=== PATIENT | female | born 1945 ===

== ENCOUNTER 2020-12-03 09:14 | Outpatient (REF) | payer MEDICARE, OTHER, SELFPAY ==
--- NOTE | ~2020-12-03 | XR_ITS ---
EXAMINATION: XR LUMBOSACRAL SPINE CLINICAL INFORMATION: Back pain with right-sided sciatica. COMPARISON: None TECHNIQUE: Three views of the lumbosacral spine. FINDINGS: Levocurvature of the lumbar spine. The lumbar lordosis is maintained. No acute fracture or subluxation. No loss of vertebral body height. Multilevel loss of intervertebral disc height with anterior endplate osteophytes. Prominent bilateral facet arthropathy at L3 through S1. Atherosclerotic calcifications. XR/XR lumbar spine 2-3V IMPRESSION: Levocurvature of the lumbar spine. Mild multilevel degenerative disc disease. Bilateral facet arthropathy at L3 through S1.
== END 2020-12-03 09:15 | disposition home or self-care (01) ==
LOC: HO.XRAY 09:14
PROVIDERS: PCP Internal Medicine; Visit Provider Internal Medicine Geriatric Medicine
DX: M54.41 Lumbago with sciatica, right side (principal)
CPT/HCPCS: 72100

== ENCOUNTER 2021-07-01 13:03 | Outpatient (REF) | payer MEDICARE, OTHER, SELFPAY ==
--- NOTE | ~2021-07-01 | MM_ITS ---
EXAMINATION: BONE DENSITOMETRY CLINICAL INDICATION: Menopause. COMPARISON: This is the patient's baseline examination. TECHNIQUE: Using a ? DXA System (software version: 13.1) manufactured by [employer], dual-energy x-ray absorptiometry was performed of the lumbar spine and left hip. The images are of good technical quality. Summary results are attached. FINDINGS: AP SPINE L1-L4: BMD 1.026 g/cm2, Z-score 0.5, T-score -1.3, osteopenia. LEFT FEMUR, NECK: BMD 0.890 g/cm2, Z-score 1.0, T-score -1.1, osteopenia. LEFT FEMUR, TOTAL: BMD 0.897 g/cm2, Z-score 1.0, T-score -0.9, normal. IDENTIFIED RISK FACTORS: Early menopause, secondary osteoporosis, anticonvulsants, history of fracture (adult). HISTORY OF FRACTURE: Wrist. MEDICATIONS: Vitamin D. MM/XR DEXA axial skeleton IMPRESSION: 1. DIAGNOSIS: Osteopenia based on the lowest T-score value of -1.3 in the lumbar spine applying World Health Organization criteria. 2. 10-YEAR FRACTURE RISK PREDICTION, FRAX: Major osteoporotic fracture (clinical spine, forearm, hip or shoulder) 9.3%. Hip fracture 1.4%. 3. Treatment Recommendations: NOF guidelines recommend consideration for treatment in postmenopausal women and men age 50 and older presenting with the following: -A hip or vertebral (clinical or morphometric) fracture. -T-score less than or equal to -2.5 at the femoral neck or spine after appropriate evaluation to exclude secondary causes. -Low bone mass at the hip or spine and a 10-year fracture probability by FRAX of greater than or equal to 3% for hip fracture or greater than or equal to 20% for major osteoporotic fracture based on the [place] adapted WHO algorithm. 4. Other Recommendations: All treatment decisions require clinical judgment and consideration of individual patient factors, including patient preferences, comorbidities, previous drug use, risk factors not captured in the FRAX model (e.g. frailty, falls, vitamin D deficiency, increased bone turnover, interval significant decline in bone density) and possible under or overestimation of fracture risk by FRAX. Additional medical evaluation for secondary cause of low bone mineral density may be appropriate. FUTURE SCAN RECOMMENDATION: People with diagnosed cases of osteoporosis or at high risk for fracture should have regular bone mineral density tests. For patients eligible for Medicare, routine testing is allowed once every 2 years. The testing frequency can be increased to one year for patients who have rapidly progressing disease, those who are receiving or discontinuing medical therapy to restore bone mass, or have additional risk factors.
--- NOTE | ~2021-07-01 | MM_ITS ---
EXAMINATION: MM SCREENING DIGITAL BREAST TOMOSYNTHESIS, BILATERAL CLINICAL INFORMATION: Screening. Asymptomatic. Prior outside mammography from [place] no longer available. Family history breast cancer, mother. The lifetime risk of breast cancer based on the Tyrer-Cuzick Model is 5%. COMPARISON: None (current study represents initial baseline exam). TECHNIQUE: Digital breast tomosynthesis is performed in both the craniocaudal and mediolateral oblique views along with computer-aided detection (CAD). Synthesized 2D images are generated from the tomosynthesis. Additional left MLO view is provided. FINDINGS: There are scattered areas of fibroglandular density (ACR BI-RADS breast composition Category b). There are no significant masses, abnormal calcifications, or other abnormalities. The axilla and skin contours are normal. MM/MM tomosynthesis screening BI IMPRESSION: No mammographic evidence of malignancy. ASSESSMENT: BI-RADS 1: Negative RECOMMENDATION: Routine annual mammography screening. This patient's information was entered into a reminder system with a target due date for their next mammogram.
== END 2021-07-01 13:04 | disposition home or self-care (01) ==
LOC: HO.MAMMO 13:03
PROVIDERS: PCP Internal Medicine Geriatric Medicine; Visit Provider Internal Medicine Geriatric Medicine
DX: Z12.31 Encounter for screening mammogram for malignant neoplasm of breast (principal); Z13.820 Encounter for screening for osteoporosis; Z78.0 Asymptomatic menopausal state; M85.80 Other specified disorders of bone density and structure, unspecified site
CPT/HCPCS: 77063; 77067; 77080

== ENCOUNTER → 2021-09-29 09:51 | Outpatient (BNVA) | payer MEDICARE, OTHER, SELFPAY | PROVIDERS: PCP Internal Medicine Geriatric Medicine; Visit Provider Anesthesiology | DX: M47.816 Spondylosis without myelopathy or radiculopathy, lumbar region (principal); G89.4 Chronic pain syndrome; M54.50 Low back pain, unspecified | CPT/HCPCS: 99202 ==

== ENCOUNTER 2021-11-18 08:57 | Outpatient (REF) | payer MEDICARE, SELFPAY ==
--- NOTE | ~2021-11-18 | MR_ITS ---
EXAMINATION: MR LUMBAR SPINE WITHOUT CONTRAST CLINICAL INFORMATION: Chronic low back pain. COMPARISON: Lumbar spine radiograph 12/03/2020. TECHNIQUE: MRI of the lumbar spine was obtained using routine sequences without contrast. FINDINGS: There is slight grade 1 anterolisthesis of L3 on L4 and L4 on L5 that appears to be related to advanced facet degenerative changes at these levels. Vertebral body heights are preserved. No acute bone marrow signal changes. There is slight loss of intervertebral disc height and T2 signal intensity at multiple levels related to disc degeneration. The tip of the conus medullaris is located at L1. No mass effect on the conus. Distal cord signal intensity is unremarkable. At L1-L2 there is a slightly bulging disc. No canal stenosis. No mass effect on the traversing or foraminal nerve roots. At L2-L3 there is a slightly bulging disc. No canal stenosis. No mass effect on the traversing or foraminal nerve roots. At L3-L4 there is a pseudodisc bulge. Advanced facet degenerative change. Mild canal stenosis. Asymmetric narrowing of the left subarticular zone causes displacement and possible compression of left traversing L4 nerve roots. No foraminal nerve root compression. At L4-L5 there is a pseudodisc bulge. Advanced facet degenerative change. Mild canal stenosis. Subarticular zone narrowing causes displacement and possible compression of the left traversing L5 nerve roots. No foraminal nerve root compression. At L5-S1 there is a slightly bulging disc. Advanced facet degenerative change. No canal stenosis. No mass effect on the traversing or foraminal nerve roots. Limited visualization of the retroperitoneal anatomy reveals no abnormal finding. Psoas and paraspinal muscle groups are symmetric. MR/MR lumbar spine wo con IMPRESSION: There is slight grade 1 anterolisthesis of L3 on L4 and L4 on L5 related to advanced facet degenerative changes at each of these 2 levels. There is also advanced degenerative arthrosis of the articular facet joints at L5-S1. Mild canal stenosis at L4-L5 and L5-S1. There is subtle displacement and possible compression of left traversing L4 and L5 nerve roots related to degenerative changes at L3-L4 and L4-L5 respectively. Otherwise no neuroforaminal compromise.
== END 2021-11-18 08:58 | disposition home or self-care (01) ==
LOC: HO.MRI 08:57
PROVIDERS: Visit Provider Anesthesiology
DX: M47.816 Spondylosis without myelopathy or radiculopathy, lumbar region (principal); G89.4 Chronic pain syndrome
CPT/HCPCS: 72148

== ENCOUNTER 2022-12-07 10:22 | Outpatient (REF) | payer MEDICARE, SELFPAY ==
[2022-12-07 11:39] LABS: MANUAL DIFF FLAG NO
[2022-12-07 12:17] LABS: Basophils Percent Auto 0.4 % (0-2); Eosinophils Absolute Auto 0.2 X10*3/uL (0.0-0.4); Eosinophils Percent Auto 2.5 % (0-4); Hematocrit 45.5 % (37.0-47.0); Hemoglobin 16.1 g/dl (12.0-16.0); Imm Gran Abs Auto 0.03 X10*3/uL (0.00-0.03); Imm Gran Pct Auto 0.4 % (0.0-0.4); Lymphocytes Absolute Auto 2.8 X10*3/uL (1.2-4.9); Lymphocytes Percent Auto 32.9 % (20-40); Mean Corpuscular HGB Conc 35.4 g/dl (31.0-35.0); Mean Corpuscular Hemoglobin 30.2 pg (27.0-33.0); Mean Corpuscular Volume 85.4 fL (80.0-98.0); Mean Platelet Volume 12.4 fL (9.4-12.3); Monocytes Absolute Auto 0.6 X10*3/uL (0.1-1.2); Monocytes Percent Auto 6.8 % (2-11); Neutrophils Absolute Auto 4.8 x10*3/uL (2.0-8.3); Platelet Count 243 X10*3/uL (160-400); Red Blood Count 5.33 X10*6/uL (4.20-5.50); Red Cell Distribution Width 12.2 % (11.0-16.0); White Blood Count 8.4 X10*3/uL (4.8-10.8)
[2022-12-07 13:08] LABS: Anion Gap 18 (12-20); Blood Urea Nitrogen 19 mg/dL (9-16); Calcium 10.5 mg/dL (8.4-10.2); Carbon Dioxide 25 mmol/L (22-29); Chloride 103 mmol/L (96-108); Estimated Glomerular Filt Rate > 60; Glucose Random 113 mg/dL (60-115); Potassium 2.8 mmol/L (3.3-5.1); Sodium 143 mmol/L (135-145)
== END 2022-12-07 10:23 | disposition home or self-care (01) ==
LOC: HO.HHCL 10:22
PROVIDERS: Visit Provider Internal Medicine Geriatric Medicine
DX: I10 Essential (primary) hypertension (principal); M85.80 Other specified disorders of bone density and structure, unspecified site; Z79.1 Long term (current) use of non-steroidal anti-inflammatories (NSAID)
CPT/HCPCS: 36415; 80048; 85025

== ENCOUNTER 2022-12-18 12:03 | Outpatient (REF) | payer MEDICARE, SELFPAY | END 2022-12-18 12:04 | disposition home or self-care (01) | LOC: HO.HHCL 12:03 | PROVIDERS: Visit Provider Internal Medicine Geriatric Medicine | DX: I10 Essential (primary) hypertension (principal) | CPT/HCPCS: 36415; 80048 ==

== ENCOUNTER 2023-02-23 09:40 | Outpatient (REF) | payer MEDICARE, MEDICAID, SELFPAY ==
--- NOTE | ~2023-02-23 | XR_ITS ---
EXAMINATION: XR HIP, RIGHT CLINICAL INFORMATION: Chronic pain. COMPARISON: Radiograph pelvis and bilateral hips 03/04/2022. TECHNIQUE: Two views of the right hip. FINDINGS: No acute fracture or subluxation. Redemonstration of severe osteoarthritis involving the right hip with pronounced joint space narrowing, subcortical sclerosis, subchondral cystic changes and marginal osteophytes, similar to slightly progressed compared to 03/04/2022. No significant soft tissue abnormality. XR/XR hip RT min 2V IMPRESSION: 1. No acute fracture or subluxation. 2. Severe right hip osteoarthritis, similar to slightly progressed compared to 03/04/2022.
--- NOTE | ~2023-02-23 | XR_ITS ---
EXAMINATION: XR KNEE, LEFT CLINICAL INFORMATION: Chronic pain. COMPARISON: None available. TECHNIQUE: Four views of the left knee. FINDINGS: No evidence of acute fracture or subluxation. Moderate joint space narrowing of the medial and patellofemoral compartments with small marginal osteophytes. No osseous erosions. No chondrocalcinosis. No joint effusion. Scattered vascular calcifications. XR/XR knee LT 4V IMPRESSION: No acute fracture or malalignment. Moderate degenerative osteoarthritis of the medial and patellofemoral compartments.
[2023-02-23 11:50] LABS: Anion Gap 13 (12-20); Blood Urea Nitrogen 20 mg/dL (9-16); Calcium 10.4 mg/dL (8.4-10.2); Carbon Dioxide 25 mmol/L (22-29); Chloride 107 mmol/L (96-108); Estimated Glomerular Filt Rate > 60; Glucose Random 83 mg/dL (60-115); Potassium 3.7 mmol/L (3.3-5.1); Sodium 141 mmol/L (135-145)
== END 2023-02-23 09:41 | disposition home or self-care (01) ==
LOC: HO.HHCL 09:40
PROVIDERS: Visit Provider Internal Medicine Geriatric Medicine
DX: M25.551 Pain in right hip (principal); M25.562 Pain in left knee; G89.29 Other chronic pain; E87.6 Hypokalemia
CPT/HCPCS: 36415; 73502; 73564; 80048

== ENCOUNTER 2023-03-10 07:09 | Outpatient (REF) | payer MEDICARE, SELFPAY | END 2023-03-10 07:10 | disposition home or self-care (01) | LOC: HO.HOSX 07:09 | PROVIDERS: Visit Provider Orthopaedic Surgery | DX: M16.11 Unilateral primary osteoarthritis, right hip (principal); M25.551 Pain in right hip | CPT/HCPCS: 72170; 99202 ==

== ENCOUNTER 2023-03-10 09:32 | Outpatient (AMB) | payer MEDICARE, SELFPAY ==
--- NOTE | 2023-03-10 10:23 | A.OFFVIS_ITS ---
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 Patient reports ongoing pain for 3 years. Hx of injections/ PT with no relief. Hx of taking celebrex, naproxen, and Tylenol with no relief. The patient describes her pain as sharp and severe in nature, 10/10. Most of her pain is located within her right groin and thigh. She does walk with a rolling walker because of her pain. The patient has difficulty walking even short distances because of her pain. At this point her right hip pain is interfering with her activities of daily living and her ability to sleep well through the night. Allergies No Known Allergies Allergy (Verified 03/10/23 10:33) Medication List - Last Reconciled 03/10/23 by Kiel Ruiz MD amlodipine 10 mg PO DAILY chlorthalidone 50 mg PO DAILY clonidine HCl 0.2 mg PO BEDTIME diclofenac sodium 1% 2 grams topical BID levothyroxine 75 mcg PO QAM lidocaine 5% topical losartan 100 mg PO BEDTIME ofloxacin 0.3% 10 drps otic (ears) BID omeprazole 20 mg PO DAILY rosuvastatin 10 mg PO BEDTIME PFSH Medical History Hypothyroidism Hypertension Perforation of left tympanic membrane Physical Exam Const Other: Well-nourished well-developed very friendly female awake alert and oriented x3 in no acute distress Extrem Other: Bilateral lower extremity examination shows good capillary refill, no skin lesions noted, normal sensation light touch Right hip examination shows decreased range of motion when compared to her left hip, pain with range of motion, no tenderness over her bursa Results Reviewed Results Reviewed: X-rays of the patient's right hip show end-stage degenerative joint disease with grade 4 [id number] arthritis, subchondral sclerosis, osteophyte formation, no acute bony abnormalities Assessment & Plan Assessment & Plan (1) Arthritis of right hip: Code(s): M16.11 - Unilateral primary osteoarthritis, right hip Plan Ms. Olmos presents with progressively worsening right hip pain due to end-stage degenerative joint disease. I had a lengthy discussion with the patient regarding the treatment options. At this point she has failed continued non operative treatments. The risks and benefits of right total hip replacement surgery were discussed at length with the patient. The patient wishes to proceed with surgery. She will contact my office to pick a surgery date. I will see her back 1 week prior to her surgery to answer any final questions that she might have. Feel free to call me at any time should questions regarding her orthopedic management arise. Thank you very much for asking me to see this very friendly patient. I spent 22 minutes in reviewing the patient's records and imaging studies, seeing the patient and documenting in the medical record. Orders: Orders XR pelvis 1-2V Today M25.551 - Pain in right hip Coding Level of Care Code New Pt Level 2 (52771) Diagnoses Arthritis of right hip M16.11
== END 2023-03-10 10:46 | disposition home or self-care (01) ==
PROVIDERS: PCP Internal Medicine Geriatric Medicine; Visit Provider Orthopaedic Surgery
DX: M16.11 Unilateral primary osteoarthritis, right hip (principal)
CPT/HCPCS: 99202

== ENCOUNTER → 2023-05-19 08:56 | Outpatient (BNVA) | payer MEDICARE, SELFPAY | PROVIDERS: PCP Internal Medicine Geriatric Medicine; Visit Provider Orthopaedic Surgery ==

== ENCOUNTER 2023-05-25 09:05 | Outpatient (REF) | payer OTHER, SELFPAY ==
[2023-05-25 11:33] LABS: Basophils Percent Auto 0.6 % (0-2); Eosinophils Absolute Auto 0.1 X10*3/uL (0.0-0.4); Eosinophils Percent Auto 1.6 % (0-4); Hematocrit 40.5 % (37.0-47.0); Imm Gran Abs Auto 0.04 X10*3/uL (0.00-0.03); Imm Gran Pct Auto 0.6 % (0.0-0.4); Lymphocytes Absolute Auto 2.5 X10*3/uL (1.2-4.9); Lymphocytes Percent Auto 35.6 % (20-40); MANUAL DIFF FLAG SCAN; Mean Corpuscular HGB Conc 34.6 g/dl (31.0-35.0); Mean Corpuscular Hemoglobin 30.2 pg (27.0-33.0); Mean Corpuscular Volume 87.3 fL (80.0-98.0); Monocytes Absolute Auto 0.4 X10*3/uL (0.1-1.2); Monocytes Percent Auto 6.3 % (2-11); Neutrophils Absolute Auto 3.8 x10*3/uL (2.0-8.3); Neutrophils Percent Auto 55.3 % (45-73); PLT CLUMP 1; Red Blood Count 4.64 X10*6/uL (4.20-5.50); Red Cell Distribution Width 12.5 % (11.0-16.0); SCAN SMEAR FLAG 1
[2023-05-25 11:41] LABS: Anion Gap 12 (12-20); Blood Urea Nitrogen 20 mg/dL (9-16); Calcium 10.1 mg/dL (8.4-10.2); Carbon Dioxide 27 mmol/L (22-29); Chloride 110 mmol/L (96-108); Estimated Glomerular Filt Rate 49; Glucose Random 90 mg/dL (60-115); Sodium 145 mmol/L (135-145)
[2023-05-25 11:45] LABS: Estimated Average Glucose 100 mg/dL; Hemoglobin A1c % 5.1 % (<6.0)
[2023-05-25 11:57] LABS: White Blood Count 6.9 X10*3/uL (4.8-10.8)
[2023-05-25 11:58] LABS: Platelet Count 199 X10*3/uL (160-400); SLIDE REVIEW VERIFIED
== END 2023-05-25 09:06 | disposition home or self-care (01) ==
LOC: HO.HHCL 09:05
PROVIDERS: Visit Provider Internal Medicine Geriatric Medicine
DX: Z01.818 Encounter for other preprocedural examination (principal)
CPT/HCPCS: 36415; 80048; 83036; 85025

== ENCOUNTER 2023-05-25 11:46 | Outpatient (AMB) | payer OTHER, SELFPAY ==
--- NOTE | 2023-05-25 11:49 | MHC.OFFVIS ---
Intake Vital Signs 05/25/23 11:55 Height 5 ft 2 in Weight 140 lb BMI 25.6 Intake Visit Reasons: Preop RT MALIA 06/21/23 DR Intake Note: Ya is a 77 year old female who presents with complaints of progressively worsening right hip pain. Patient reports ongoing pain for 3 years. Hx of injections/ PT with no relief. Hx of taking celebrex, naproxen, and Tylenol with no relief. The patient describes her pain as sharp and severe in nature, 10/10. Most of her pain is located within her right groin and thigh. She does walk with a rolling walker because of her pain. The patient has difficulty walking even short distances because of her pain. At this point her right hip pain is interfering with her activities of daily living and her ability to sleep well through the night. Allergies No Known Allergies Allergy (Verified 05/25/23 11:53) Medication List - Last Reconciled 05/25/23 by Kiel Ruiz MD amlodipine 10 mg PO DAILY chlorthalidone 50 mg PO DAILY clonidine HCl 0.2 mg PO BEDTIME diclofenac sodium 1% 2 grams topical BID levothyroxine 75 mcg PO QAM lidocaine 5% topical losartan 100 mg PO BEDTIME ofloxacin 0.3% 10 drps otic (ears) BID omeprazole 20 mg PO DAILY rosuvastatin 10 mg PO BEDTIME PFSH Medical History Hypothyroidism Hypertension Perforation of left tympanic membrane Social History Patient Tobacco Use Status: Never used Tobacco Current occupational status: retired Physical Exam Vital Signs: BMI result Body Mass Index 25.6 Const Other: Well-nourished well-developed very friendly female awake alert and oriented x3 in no acute distress Extrem Other: Bilateral lower extremity examination shows good capillary refill, no skin lesions noted, normal sensation light touch Right hip examination shows decreased range of motion when compared to her left hip, pain with range of motion, no tenderness over her bursa Results Reviewed Results Reviewed: X-rays of the patient's right hip show end-stage degenerative joint disease with grade 4 [id number] arthritis, subchondral sclerosis, osteophyte formation, no acute bony abnormalities Assessment & Plan Assessment & Plan (1) Arthritis of right hip: Code(s): M16.11 - Unilateral primary osteoarthritis, right hip Plan Ms. Olmos presents with progressively worsening right hip pain due to end-stage degenerative joint disease. I had a lengthy discussion with the patient regarding the treatment options. At this point she has failed continued non operative treatments. The risks and benefits of right total hip replacement surgery were discussed at length with the patient. The patient wishes to proceed with surgery. human resources services specialist will be consulted following her surgery for home physical therapy and nursing. The patient will follow-up as instructed. Feel free to call me at any time should questions regarding her orthopedic management arise. I spent 22 minutes in reviewing the patient's records and imaging studies, seeing the patient and documenting in the medical record. Coding Level of Care Code Est Pt Level 2 (24081) Diagnoses Arthritis of right hip M16.11
[2023-05-25 11:55] VITALS: BMI 25.6
== END 2023-05-25 12:10 | disposition home or self-care (01) ==
PROVIDERS: PCP Internal Medicine Geriatric Medicine; Visit Provider Orthopaedic Surgery
DX: M16.11 Unilateral primary osteoarthritis, right hip (principal)
CPT/HCPCS: 99024

== ENCOUNTER 2023-06-15 12:54 | Outpatient (AMB) | payer OTHER, SELFPAY ==
[2023-06-15 13:58] VITALS: BP 130/74; PULSE 68; BMI 26.1
--- NOTE | 2023-06-15 13:58 | MHC.OFFVIS ---
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 clearance 06/20 Supervisor Liquefaction Required: Yes Supervisor Liquefaction Language: Rubber Stamp Die Inspector Name: germán mccarthy [id number] Allergies No Known Allergies Allergy (Verified 06/15/23 14:01) Medication List - Last Reconciled 06/15/23 by Chen Abdi NP-C acetaminophen 500 mg PO Q6H PRN amlodipine 10 mg PO DAILY calcium carbonate-vitamin D3 600 mg-10 mcg (400 unit) 1 tab PO BID clonidine HCl 0.2 mg PO BEDTIME diclofenac sodium 1% 2 grams topical BID hydrochlorothiazide 25 mg PO DAILY levothyroxine 75 mcg PO QAM lidocaine 5% topical BID PRN losartan 100 mg PO BEDTIME meloxicam 15 mg PO DAILY ofloxacin 0.3% 10 drps otic (ears) BID PRN omeprazole 20 mg PO DAILY rosuvastatin 10 mg PO BEDTIME 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 Today she reports that she has no known history of heart disease. She admits to being mostly sedentary and is unable to walk much due to her right hip discomfort. She uses a walker and a cane. Unable to achieve 4 Mets workload due to physical condition. She has some mild shortness of breath if she over exerts. No chest discomfort at rest or with activity. No heart palpitations, lightheadedness, presyncope, syncope, falls. No PND, orthopnea. Her ankles do swell in the evenings. No history of smoking or alcohol use. No known family history of heart disease. Compliant with her medications. Has surgery planned for 06/21/2023. [facility] Medical History DJD (degenerative joint disease) Back pain Arthritis GERD (gastroesophageal reflux disease) Hypothyroidism Hypertension Perforation of left tympanic membrane Surgical History History of bladder surgery (~2016) Hx of hand surgery Social History Household Members Other:: daughter-Salma Are you a primary nonfarm animal caretaker to a significant other at home: No Do you presently have visiting nurse or other home services: No Patient Tobacco Use Status: Never used Tobacco Current occupational status: retired Review of Systems Const All systems reviewed & are unremarkable except as noted in HPI and below ENT Denies dizziness Card Denies chest pain, Denies chest pain at rest, Denies chest pain with activity, Denies rapid heart rate, Denies pedal edema, Denies edema, Denies leg edema, Denies lightheadedness, Denies palpitations, Denies dyspnea, Denies dyspnea on exertion and Denies orthopnea Resp Denies cough, Denies dyspnea and Denies dyspnea on exertion GI Denies hematochezia and Denies change in stool character Musc Details: hip pain Reports abnormal gait, Reports limited range of motion, Denies muscle cramps, Denies muscle weakness, Denies numbness, Denies radiating pain into limb, Denies stiffness and Denies tingling Neuro Reports abnormal gait, Denies dizziness, Denies numbness and Denies tingling Endo Denies palpitations Physical Exam Vital Signs: Last Vital Signs Pulse 68 06/15/23 13:58 BP 130/74 06/15/23 13:58 BMI result Body Mass Index 26.1 Const Other: ambulates slowly with walker General: cooperative, healthy appearing, comfortable and no acute distress Orientation/consciousness: patient oriented x3 Neck Neck: Yes normal visual inspection Resp Effort & Inspection: normal respiratory effort Auscultation: clear to auscultation bilaterally, no crackles, no rales, no rhonchi and no wheezes Cardio Jugular venous distension: no JVD Rate: regular rate Rhythm: regular rhythm Heart sounds: S1 normal heart sound present, S2 normal heart sound present, no murmurs and no rubs Neuro General: patient oriented x3 Extrem General: Yes normal to inspection Psych Appearance: grossly normal Mental Status: mental status grossly normal Speech and movement: Normal speech and movement present Office Procedures EKG Details: Today, read by me, sinus rhythm with first-degree AV block, PVC, right axis, can not exclude inferior infarct and possible anterior infarct, rate 68, QTC 444 millisecond [id number], Complete Assessment & Plan Assessment & Plan (1) Abnormal EKG: Code(s): R94.31 - Abnormal electrocardiogram [ECG] [EKG] Plan: EKG done today shows sinus rhythm with first-degree AV block, PVC, right axis deviation, can not exclude prior inferior and anterior infarcts, poor R-wave progression, low-voltage QRS, rate 68. Patient denies any known cardiac history. She has some mild shortness of breath with activity but is mostly sedentary at this point. She is unable to achieve 4 Mets workload due to right hip pain. Cardiac risks of age, hypertension, hyperlipidemia. She plans to undergo a total hip replacement which is scheduled on 06/21/2023. Will arrange for an echocardiogram to assess for structural heart disease, EF, wall motion. Will check a pharmacological nuclear stress test to evaluate for any ischemia. She will not be able to walk on a treadmill as she uses a walker- plan to complete stress test using 1 day protocol due to time constraints with her upcoming surgery. Plan to call her with test results. Preop clearance to be completed once test results are available. Cardiology follow-up 3 months, sooner if needed. (2) Shortness of breath: Code(s): R06.02 - Shortness of breath Plan: As above (3) Preop cardiovascular exam: Code(s): Z01.810 - Encounter for preprocedural cardiovascular examination Plan: As above. Addendum will be made to this note once test results available. (4) Arthritis of right hip: Code(s): M16.11 - Unilateral primary osteoarthritis, right hip Plan: As above Plan Time spent on chart review, documentation, interview and assessment Orders: Orders CA lexiscan stress w jose Today M16.11 - Unilateral primary osteoarthritis, right hip, R06.02 - Shortness of breath, R94.31 - Abnormal electrocardiogram [ECG] [EKG], Z01.810 - Encounter for preprocedural cardiovascular examination NM cardiolite stress test Today M16.11 - Unilateral primary osteoarthritis, right hip, R06.02 - Shortness of breath, R94.31 - Abnormal electrocardiogram [ECG] [EKG], Z01.810 - Encounter for preprocedural cardiovascular examination CA echo transthoracic complete Today M16.11 - Unilateral primary osteoarthritis, right hip, R06.02 - Shortness of breath, R94.31 - Abnormal electrocardiogram [ECG] [EKG], Z01.810 - Encounter for preprocedural cardiovascular examination Coding Level of Care Code New Pt Level 4 (74033) Diagnoses Abnormal EKG R94.31 Shortness of breath R06.02 Preop cardiovascular exam Z01.810 Arthritis of right hip M16.11 CPT Codes EKG - CPT: [id number], Complete ([id number]) Time Spent (min) 28
== END 2023-06-15 14:40 | disposition home or self-care (01) ==
PROVIDERS: PCP Internal Medicine Geriatric Medicine; Visit Provider Nurse Practitioner Family
DX: R94.31 Abnormal electrocardiogram [ECG] [EKG] (principal); R06.02 Shortness of breath; Z01.810 Encounter for preprocedural cardiovascular examination; M16.11 Unilateral primary osteoarthritis, right hip
CPT/HCPCS: 93010; 99204

== ENCOUNTER → 2023-06-15 12:54 | Outpatient (BNVA) | payer OTHER, SELFPAY | PROVIDERS: PCP Internal Medicine Geriatric Medicine; Visit Provider Nurse Practitioner Family | DX: Z01.810 Encounter for preprocedural cardiovascular examination (principal); R94.31 Abnormal electrocardiogram [ECG] [EKG]; R06.02 Shortness of breath; M16.11 Unilateral primary osteoarthritis, right hip | CPT/HCPCS: 93005; 99202 ==

== ENCOUNTER → 2023-06-16 14:20 | Outpatient (REF) | payer OTHER, SELFPAY ==
--- NOTE | 2023-06-16 14:23 | CA_ITS ---
Transthoracic Echocardiogram Patient (Last, First, Middle): Ya Olmos, Gender: Female Date of : 1945 Age: 77 Procedure Date: 06/16/2023 Procedure Type: Transthoracic Echocardiogram Location: OP Height: 154.94 cm Weight: 63.5 kg BSA: 1.62 m2 Heart Rate: bpm BP: 140 / 82 mmHg Data Architect Manager: TO Referring MD: Ish Warren MD Document Examiner: Seth Montana MD Symptoms: R94.31 ABNORMAL EKG HYPERTENSION I10 Study Quality: Fair ECG Rhythm: Sinus Conclusions: - 1. Normal LV ejection fraction 60 65% with impaired relaxation filling pattern 2. Normal cardiac valvular Doppler 3. Mildly dilated ascending aorta at 3.8 cm 4. No gross pericardial effusion Findings Procedure Information Contrast agent, definity, is being given per protocol without apparent complications. Left Ventricle Normal left ventricular size, thickness, and systolic function. The visually estimated ejection fraction is between 60-65%. Spectral Doppler is indicative of an impaired relaxation filling pattern. E/E prime ratio is between 8 and 15 consistent with indeterminate filling pressures. Right Ventricle Normal right ventricular cavity size and systolic function. Atria Both atria are normal in size. There is lipomatous hypertrophy of the interatrial septum. There is no evidence of interatrial shunt. Aortic Valve There is mild calcification of the aortic valve. There is no aortic valve stenosis. There is no aortic valve regurgitation. Mitral Valve Likely normal mitral valve structure and function. There is trace mitral valve regurgitation. There is no mitral valve stenosis. Pulmonic Valve The pulmonic valve was not well visualized. Tricuspid Valve Normal tricuspid valve structure. Tricuspid regurgitation envelope is inadequate for calculation of right ventricular systolic pressure. Normal right atrial pressure. Great Vessels The pulmonary artery was not well visualized. There is mild dilatation of the ascending aorta measuring 3.80 cm. Venous The inferior vena cava is normal in size and collapses greater than 50% with inspiration. Pericardium/Pleural There is no evidence of pericardial effusion. Prior Study Comparison No prior study available for comparison. Measurements 2D Linear Measurements IVSd: 1.00 0.6-0.9/0.6-1.0 cm LVIDd: 4.40 3.9-5.3/4.2-5.9 cm LVIDd Index: 2.72 2.4-3.2/2.2-3.1 cm/m2 LVIDs: 3.11 2.0-3.6 cm LVPWd: 0.90 0.7-1.1 cm LA Diam: 2.80 2.7-3.8/3.0-4.0 cm LAIDs Index: 1.73 1.5-2.3 cm/m2 LV Mass: 170.59 67-162/88-224 g LV Mass Index: 105.30 43-95/49-115 g/m2 LVOT Diam: 2.10 3.0+(-)1.3 cm 2D Systolic Function EF 4C: 58.50 >55% EF 2C: 59.00 >55% EF BiP: 60.60 >55% Mitral Valve MV Pk E: 0.62 MV PK A: 0.90 MV Decel Time: 206.00 E/A: 0.70 E'Lateral: 8.16 E'Medial: 4.79 E/E' Med: 12.90 E/E' Lat: 7.60 PHT: 60.00 MVA PHT: 3.67 Decel [place]: 2.99 Aortic Valve AoV Pk Kevin: 1.36 AoV Mn Kevin: 0.90 AoV VTI: 0.26 AoV Pk Grad: 7.00 Aov Mn Grad: 4.00 CHARISSE Cont.VTI: 2.89 LVOT LVOT Pk Kevin: 1.17 LVOT Mn Kevin: 0.73 LVOT VTI: 0.22 LVOT Pk Grad: 5.00 LVOT Mn Grad: 3.00 LVOT Diam: 2.10 LVOT Area: 3.46 Diastolic Function MV Pk E: 0.62 MV Pk A: 0.90 E/A: 0.70 E'Medial: 4.79 E/E' Med: 12.90 E' Laterial: 8.16 E/E' Lat: 7.60 Right Ventricle TAPSE (mm): 19.40 TVS' Kevin: 11.50 Great Vessels Aorta Sinus of Valsalva: 3.61 2.0-3.[address] [place]: 2.63 1.7-3.4 cm Ao Asc: 3.80 2.1-3.4 cm Ao Arch: 2.90 Updated in Other Vendor System with Status of Final Seth Montana MD electronically signed on 06/17/2023 12:50:00 PM with status of Final
== END ==
LOC: HO.CARD 14:20
PROVIDERS: PCP Internal Medicine Geriatric Medicine; Visit Provider Internal Medicine Geriatric Medicine
DX: Z01.810 Encounter for preprocedural cardiovascular examination (principal); R06.02 Shortness of breath; R94.31 Abnormal electrocardiogram [ECG] [EKG]
CPT/HCPCS: 93306; Q9957

== ENCOUNTER → 2023-06-16 14:23 | Outpatient (BNV) | payer OTHER, SELFPAY | PROVIDERS: PCP Internal Medicine Geriatric Medicine; Visit Provider Internal Medicine Cardiovascular Disease | DX: R94.31 Abnormal electrocardiogram [ECG] [EKG] (principal) | CPT/HCPCS: 93306 ==

== ENCOUNTER → 2023-06-18 07:26 | Outpatient (REF) | payer OTHER, SELFPAY ==
--- NOTE | ~2023-06-18 | NM_ITS ---
Myocardial perfusion study Indication: Preoperative cardiovascular stratification for abnormal EKG Technique: The patient was brought in for a Lexiscan perfusion study on 06/18/2023. Patient performed low-level exercise and was injected 0.4 mg of Lexiscan intravenously. Within a minute of injection, 30 mCi of sestamibi was given intravenously. Images were obtained using the SPECT gamma camera interlaced with the gating device. Images were obtained in supine position. Resting perfusion study was performed on 06/18/2023. Patient was administered 10 mCi of sestamibi intravenously at rest. Images were then obtained in supine position. Images obtained with and without CT attenuation. Total DLP 126 mGy-cm. Images were processed with the software and compared side to side in short axis, horizontal long axis and vertical long axis views. Findings: Both stress as well as rest images was somewhat limited due to arms down position as well as supine diaphragmatic uptake interfering with inferior wall uptake The stress perfusion study showed non attenuated images show mildly reduced uptake in the apex and predominantly in the distal lateral wall of the LV myocardium. Remainder of the LV myocardium is normally perfused. Attenuation corrected images show mildly reduced uptake in the apex of the LV myocardium. The gated study shows normal LV systolic function with calculated LVEF of 63%. LV cavity is normal in size. The gated study shows normal systolic wall thickening and contraction of segments. Resting study shows no change in perfusion pattern compared to stress perfusion study. Gating at rest reveals normal systolic wall motion with ejection fraction at 65%. The findings are consistent with no clear reversible defect suggestive of ischemia. Apical defect most likely attenuation artifact.. NM/NM cardiolite stress test Impression: 1. Myocardial perfusion imaging study shows likely normal myocardial perfusion 2. Gated LVEF is 63% 3. Transient ischemic dilatation not present EKG is nondiagnostic for ischemia
--- NOTE | 2023-06-18 07:29 | CA_ITS ---
Acquisition Time: 2023-06-18 08:46:29 Total Exercise Time: 00:02:00 Test Indications: Abnormal ECG Medications: AMLODIPINE CLONIDINE HCTZ LEVOTHYROXINE LOSARTAN MELOXICAM OMEPRAZALE ROSUVASTATIN Protocol: LEXISCAN Max HR: 094 BPM 66% of Pred: 142 BPM Max BP: 122/064 mmHG Max Work Load: 1.0 METS Pharmacological stress test with Lexiscan injection, while sitting and kickiing her legs, without anginal symptoms, with isolated PVCs, with normotensive response to injection, with nondiagnostic EKG for ischemia. In recovery she was treated with Aminophytline 75mg IVP to reverse Lexiscan. Nuclear images pending. Test reviewed with Dr Montana. Referred By: Chen Abdi Overread By: CHEN ABDI
== END ==
LOC: HO.CARD 07:26
PROVIDERS: PCP Internal Medicine Geriatric Medicine; Visit Provider Nurse Practitioner Family
DX: Z01.810 Encounter for preprocedural cardiovascular examination (principal); R06.02 Shortness of breath; R94.31 Abnormal electrocardiogram [ECG] [EKG]; M16.11 Unilateral primary osteoarthritis, right hip
CPT/HCPCS: 78452; 93017; A9500; J0280; J2785

== ENCOUNTER → 2023-06-18 07:29 | Outpatient (BNV) | payer OTHER, SELFPAY | PROVIDERS: PCP Internal Medicine Geriatric Medicine; Visit Provider Nurse Practitioner Family | DX: Z01.810 Encounter for preprocedural cardiovascular examination (principal); I49.3 Ventricular premature depolarization | CPT/HCPCS: 78452; 93016; 93018 ==

== ENCOUNTER 2023-06-21 07:34 | Inpatient (IN) | payer OTHER, SELFPAY ==
[2023-06-15 11:44] VITALS: BP 130/78; PULSE 75; RESP 16; O2SAT 98; BMI 28.7
--- NOTE | 2023-06-15 12:04 | P.CONAN_ITS ---
Documented by User: Velma Waite NP 06/18/23 13:21 HPI - Anesthesia Eval Consult details Narrative: 77yo F for Right Hip Total Replacement, 06/21/23 Referred to cardiology by PCP d/t abnormal EKG No recent illness No CP or SOB within limits of pain GERD. prn ppi only. rare symptoms PMFSH Active Problems Active Problems: All Active Problems (Updated 06/14/23 @ 16:13 by Feli Chandler RN) Arthritis of right hip (Acute) Right hip pain (Acute) Chronic pain syndrome (Acute) Low back pain (Acute) Spondylosis of lumbar spine (Acute) Past Medical History Medical History DJD (degenerative joint disease) Back pain Arthritis GERD (gastroesophageal reflux disease) Hypothyroidism Hypertension Perforation of left tympanic membrane Family History Family history of problems with anesthesia: No Surgical History Surgical History History of bladder surgery (~2015) Hx of hand surgery History of Problems with Anesthesia: No Social History Social History Household Members Other:: daughter-Slama Are you a primary medication care manager to a significant other at home: No Do you presently have visiting nurse or other home services: No Patient Tobacco Use Status: Never used Tobacco Use of substances other than those prescribed or required for medical reasons: No Are you DNR?: No Advance Directives: No Advance Directives Information Provided: Yes Advance Directives on File: No Recently lost weight without trying: No Poor oral hygiene: No (upper teeth waiting until after surgery for denture fitting) Current occupational status: [employer] Allergies Allergy/AdvReac Type Severity Reaction Status Date / Time No Known Allergies Allergy Verified 06/15/23 14:01 Home Medications ?Medication ?Instructions ?Recorded ?Confirmed ?Last Taken ?Type amlodipine 10 mg tablet 10 mg PO DAILY 09/29/21 06/15/23 06/21/23 History clonidine HCl 0.2 mg tablet 0.2 mg PO BEDTIME 09/29/21 06/15/23 Unknown History diclofenac sodium 1 % topical gel 2 g topical BID 09/29/21 06/15/23 Unknown History levothyroxine 75 mcg tablet 75 mcg PO QAM 09/29/21 06/15/23 Unknown History lidocaine 5 % topical ointment topical BID PRN Pain 09/29/21 06/15/23 Unknown History losartan 100 mg tablet 100 mg PO BEDTIME 09/29/21 06/15/23 Unknown History ofloxacin 0.3 % ear drops 10 drp otic (ears) BID PRN Pain 09/29/21 06/15/23 Unknown History omeprazole 20 mg capsule,delayed 20 mg PO DAILY 09/29/21 06/15/23 Unknown History release rosuvastatin 10 mg tablet 10 mg PO BEDTIME 09/29/21 06/15/23 Unknown History acetaminophen 500 mg tablet 500 mg PO Q6H PRN mild pain 06/14/23 06/15/23 Unknown History calcium carbonate 600 mg-vitamin 1 tab PO BID 06/14/23 06/15/23 Unknown History D3 10 mcg (400 unit) tablet hydrochlorothiazide 25 mg tablet 25 mg PO DAILY 06/14/23 06/15/23 06/21/23 History meloxicam 15 mg tablet 15 mg PO DAILY 06/14/23 06/15/23 06/07/23 History Exam Height,Weight and Vital Signs: Height 4 ft 11 in Weight 64.41 kg Last Vital Signs Pulse 75 06/15/23 11:44 Resp 16 06/15/23 11:44 BP 130/78 06/15/23 11:44 Pulse Ox 98 06/15/23 11:44 O2 Del Method Room Air 06/15/23 11:44 Pertinent Lab Results Pertinent Lab Results: Laboratory Tests 05/25/23 09:06 WBC 6.9 Hgb 14.0 Hct 40.5 Plt Count 199 Sodium 145 Potassium 4.0 Chloride 110 H Carbon Dioxide 27 BUN 20 H Creatinine 1.08 Narrative Narrative: EKG 06/2023 sinus rhythm with first-degree AV block, PVC, right axis, can not exclude inferior infarct and possible anterior infarct, rate 68, QTC 444 millisecond ECHO 06/2023 Conclusions: - 1. Normal LV ejection fraction 60 65% with impaired relaxation filling pattern 2. Normal cardiac valvular Doppler 3. Mildly dilated ascending aorta at 3.8 cm 4. No gross pericardial effusion NM cardiolite stress test 06/2023 Impression: 1. Myocardial perfusion imaging study shows likely normal myocardial perfusion 2. Gated LVEF is 63% 3. Transient ischemic dilatation not present EKG is nondiagnostic for ischemia Airway Mallampati Class: III TM Dist: >3cm Neck ROM: Full Loose/Missing/Broken Teeth: Yes (No top teeth. ) Heart: RRR Lungs: CTAB Assessment and Plan Assessment Anesthesia Assessment: Anesthesia Plan Discussed and PAT Visit Final Anesthetic Review Family History of Problems with Anesthesia: No History of Problems with Anesthesia: No Documented by User: Gayatri Arango MD 06/21/23 09:07 [facility] Past Medical History Medical History DJD (degenerative joint disease) Back pain Arthritis GERD (gastroesophageal reflux disease) Hypothyroidism Hypertension Perforation of left tympanic membrane Surgical History Surgical History History of bladder surgery (~2015) Hx of hand surgery Social History Social History Household Members Other:: daughter-Salma Are you a primary medication care manager to a significant other at home: No Do you presently have visiting nurse or other home services: No Patient Tobacco Use Status: Never used Tobacco Use of substances other than those prescribed or required for medical reasons: No Are you DNR?: No Advance Directives: No Advance Directives Information Provided: Yes Advance Directives on File: No Recently lost weight without trying: No Poor oral hygiene: No (upper teeth waiting until after surgery for denture fitting) Current occupational status: retired Meds Allergies Allergy/AdvReac Type Severity Reaction Status Date / Time No Known Allergies Allergy Verified 06/15/23 14:01 Home Medications ?Medication ?Instructions ?Recorded ?Confirmed ?Last Taken ?Type amlodipine 10 mg tablet 10 mg PO DAILY 09/29/21 06/15/23 06/21/23 History clonidine HCl 0.2 mg tablet 0.2 mg PO BEDTIME 09/29/21 06/15/23 Unknown History diclofenac sodium 1 % topical gel 2 g topical BID 09/29/21 06/15/23 Unknown History levothyroxine 75 mcg tablet 75 mcg PO QAM 09/29/21 06/15/23 Unknown History lidocaine 5 % topical ointment topical BID PRN Pain 09/29/21 06/15/23 Unknown History losartan 100 mg tablet 100 mg PO BEDTIME 09/29/21 06/15/23 Unknown History ofloxacin 0.3 % ear drops 10 drp otic (ears) BID PRN Pain 09/29/21 06/15/23 Unknown History omeprazole 20 mg capsule,delayed 20 mg PO DAILY 09/29/21 06/15/23 Unknown History release rosuvastatin 10 mg tablet 10 mg PO BEDTIME 09/29/21 06/15/23 Unknown History acetaminophen 500 mg tablet 500 mg PO Q6H PRN mild pain 06/14/23 06/15/23 Unknown History calcium carbonate 600 mg-vitamin 1 tab PO BID 06/14/23 06/15/23 Unknown History D3 10 mcg (400 unit) tablet hydrochlorothiazide 25 mg tablet 25 mg PO DAILY 06/14/23 06/15/23 06/21/23 History meloxicam 15 mg tablet 15 mg PO DAILY 06/14/23 06/15/23 06/07/23 History Assessment and Plan Assessment Anesthesia Assessment: Chart Reviewed Final Anesthetic Review ASA Class: III Final Preanesthetic Review: No Changes in Pt Med Stat, Meds/Allgs Chart Reviewed, Consent Obtained/Reviewed and Anes Risks/Benef Reviewed Patient Risk: Intermediate Procedure Risk: Intermediate Anesthetic Plan Anesthetic Plan: GA Disposition: Standard PACU
[2023-06-15 13:39] LABS: MRSA Nasal PCR NEGATIVE (Negative); SA Nasal PCR NEGATIVE (Negative)
[2023-06-21] VITALS (12 sets, daily range): BP systolic 138–151; BP diastolic 74–87; PULSE 58–90; RESP 7–18; TEMP 36.4–36.7; O2SAT 93–99
--- NOTE | ~2023-06-21 | XR_ITS ---
EXAMINATION: XR PELVIS CLINICAL INFORMATION: Post right hip replacement COMPARISON: Preop 03/10/23 TECHNIQUE: AP view of the pelvis. FINDINGS: The upper most pelvis is excluded. There has been interval right hip replacement. 2 screws transfix the acetabular component. A cerclage wire encircles the proximal femur. The hardware appears appropriately positioned and intact. There is soft tissue gas. There is no evidence of a large soft tissue mass or collection. There are some proliferative changes around the left femoral acetabular joint. XR/XR pelvis 1-2V IMPRESSION: No evidence of immediate complication following right hip replacement.
[2023-06-21] MEDS: oxyCODONE HCl ER 10 MG TAB.ER.12H PO ×2 (08:47→19:23)
[2023-06-21] MEDS: Lactated Ringers 1,000 ML 100 ML IVCONT ×2 (08:48→15:46)
--- NOTE | 2023-06-21 13:52 | P.BOP_ITS ---
Brief Operative Note Date of Service: 06/21/23 Pre-op diagnosis: Right hip degenerative joint disease Post-op diagnosis: same Procedure: Right total hip arthroplasty Implants: [place] press-fit total hip arthroplasty with an Accolade II femoral stem size 2 with a 127 degree neck-shaft angle, a Trident II Tritanium acetabular component with cluster holes size 48, a Biolox ceramic femoral head size 36 with a +0 mm neck, polyethylene liner size 36 with a 0 degree lip, 2 cancellous bone screws measuring 30 mm in length and 25 mm in length, 1 Roderick miles Surgeon: Kiel Ruiz MD Anesthesia: GETA Was an Behavioral Health Consultant used for this Procedure?: Yes Behavioral Health Consultant: Sadie Leroy Estimated blood loss (mL): 200 Pathology: other (Right femoral head) Condition: stable Disposition: PACU
--- NOTE | 2023-06-21 13:57 | P.OP_ITS ---
Operative Note Operative Note Date of Service: 06/21/23 Narrative: After the patient was identified as Ya and her right hip was initialed by myself the patient was brought to the operating room where general anesthesia via endotracheal tube was induced by the anesthesiologist in routine fashion. The patient was given 2 g of IV Ancef for infection prophylaxis. The patient was then gently rolled into the lateral position. An axillary roll was put into place. All bony prominences were well padded. The patient's pelvis was held securely with hip bolsters. The patient's right hip region and lower extremity were prepped and draped in sterile fashion. A #10 scalpel blade was then used to make a curvilinear incision centered over the greater trochanter. The subcutaneous tissues were dissected using electrocautery down to the fascia edna. The fascia edna was then split in line with the skin incision using electrocautery. The split in the fascia edna was curved posteriorly along its cephalad aspect to help prevent injury to the innervation of the tensor fascia edna muscle. The patient's leg was gently externally rotated. A lateral Christian approach was then taken down to the anterior joint capsule. The anterior half of the vastus lateralis was split 1 cm from its insertion and tagged with #2 Ethibond suture. The anterior 1/3 of the gluteus medius incision was then split using electrocautery and tagged with #2 Ethibond suture. An anterior capsulectomy was then performed using electrocautery. The patient's femoral head was then dislocated anteriorly using a hook and gentle traction. Soft tissues were retracted around the femoral neck. The femoral neck cut was then made using a sagittal saw 1 cm proximal to the lesser trochanter. Our attention was then directed to the acetabulum. The labrum was removed using electrocautery. Soft tissue within the cotyloid notch was removed using electrocautery and a rongeur. The femoral head measured to be a size 42 mm. Thus, reaming was begun with a 42 mm reamer. Reaming was performed at 45 degrees of abduction and 20 degrees of anteversion. Reaming was increased incrementally up to a size 48 reamer. At this point we had reached the medial wall of the acetabulum. The acetabulum was irrigated with copious amounts of normal saline solution via pulse lavage. The final size 48 acetabular component was then impacted into place with 45 degrees of abduction and 20 degrees of anteversion. Two cancellous screws were then placed into the superior position. The anterior screw measured 30 mm in length and the posterior screw measured 25 mm in length. The acetabular component was irrigated with copious amounts of normal saline solution via pulse lavage. The polyethylene liner was then impacted into place with the lip in the posterior-superior position. A small sponge was placed into the acetabular component to protect it during preparation of the proximal femur. Our attention was then directed to the proximal femur. A Dall-Miles cable was placed just distal to the lesser trochanter to help prevent periprosthetic fracture. The patient's leg was then placed into a sterile pouch along the anterior aspect of the surgical suite table. Soft tissues were retracted around the proximal femur. A box cutting osteotome was used to make a groove in the medial aspect of the greater trochanter. Broaching was begun with a size 1 broach. Broaching was increased up to a size 2 broach. The size 2 broach fit well. There was both linear and rotational stability. The broach was removed. The intramedullary canal was irrigated with copious amounts of normal saline solution via pulse lavage. The final implant was impacted into place. There was both rotational and linear stability. The Dall- Miles cable was tightened and cut in routine fashion. A trial size 36 head with a +0 mm neck was put into place. The hip was reduced. Leg lengths were clinically equal. The hip was taken through a full range of motion. There was no instability. The hip was once again dislocated and the patient's leg was placed into the sterile pouch. The trial head was removed. The wound was irrigated with copious amounts of normal saline solution via pulse lavage. The final head was impacted in the place. Leg lengths were clinically equal. Hip was taken through a full range of motion. There was no instability. The patient's leg was then placed onto a well-padded Schuler stand. The wound was once again irrigated. The vastus lateralis and tensor fascia edna tendons were repaired with #2 Ethibond [id number] interrupted suture. The wound was once again irrigated. The fascia edna was closed with #2 Ethibond [id number] interrupted suture as well as #1 Vicryl [id number] interrupted suture. The wound was once again irrigated. The subcutaneous tissues were closed with 0 Vicryl and 2-0 Vicryl interrupted suture. The skin was closed with skin sabi. Dry sterile dressing was placed over the incision. The patient was gently rolled into the supine position. The patient was awoken and extubated in the operating room. The patient was transferred to the recovery room in stable condition.
--- NOTE | 2023-06-21 15:59 | P.CONHOSP_ITS ---
History of Present Illness Data of Consult Service Date: 06/21/23 Requesting physician: Sadie Leroy Primary Care Provider: MD SARAH Wing Reason for consult: medical management 77 year old female with history of htn, hld, and gerd admitted to orthopedic surgery wt consult placed to hospitalist service for medical management. The patient is reporting pain in the R hip otherwise has no complaints. No etoh use, illicit drug use, or cigarette smoking. Review of Systems Review of Systems: General: No fevers, malaise, unintentional weight loss HEENT: No blurred vision, diplopia. No sore throat, nasal congestion, rhinorrhea, sinus pain, ear pain Cardiovascular: No chest pain, palpitations, or leg edema Respiratory: No shortness of breath, wheezing, cough GI: No abdominal pain, nausea, vomiting, diarrhea, constipation, melena, hematochezia : No dysuria, hematuria, increased urinary frequency, decreased urinary output MSK: No myalgia, back pain. +pain R hip Neuro: No headaches, weakness, paresthesias Skin: No rashes or lesions PMFSH Medical History DJD (degenerative joint disease) Back pain Arthritis GERD (gastroesophageal reflux disease) Hypothyroidism Hypertension Perforation of left tympanic membrane Surgical History History of bladder surgery (~2016) Hx of hand surgery Social History Household Members Other:: daughter-Salma Are you a primary career development director to a significant other at home: No Do you presently have visiting nurse or other home services: No Patient Tobacco Use Status: Never used Tobacco Use of substances other than those prescribed or required for medical reasons: No Are you DNR?: No Advance Directives: No Advance Directives Information Provided: Yes Advance Directives on File: No Recently lost weight without trying: No Poor oral hygiene: No (upper teeth waiting until after surgery for denture fitting) Current occupational status: retired [employer] Allergies Allergy/AdvReac Type Severity Reaction Status Date / Time No Known Allergies Allergy Verified 06/15/23 14:01 Active Medications: Current Medications Acetaminophen (Acetaminophen 325 Mg Tablet) 650 mg PO Q6H PRN PRN Reason: Pain, Mild (Pain Scale 1-3) Amlodipine Besylate (Amlodipine Besylate 10 Mg Tablet) 10 mg PO DAILY LIVIA; Protocol Aspirin (Aspirin 325 Mg Tablet) 325 mg PO BID LIVIA Celecoxib (Celecoxib 200 Mg Capsule) 200 mg PO BID LIVIA Clonidine HCl (Clonidine Hcl 0.2 Mg Tablet) 0.2 mg PO BEDTIME LIVIA; Protocol Docusate Sodium (Docusate Sodium 100 Mg Capsule) 100 mg PO BID LIVIA Gabapentin (Gabapentin 100 Mg Capsule) 100 mg PO BEDTIME LIVIA Hydrochlorothiazide (Hydrochlorothiazide 25 Mg Tablet) 25 mg PO DAILY LIVIA; Protocol Hydromorphone HCl (Hydromorphone Hcl 0.5 Mg/0.5 Ml Syringe) 0.25 mg IVPUSH Q4H PRN; Protocol PRN Reason: Pain, Severe (Pain Scale 7-10) Hydromorphone HCl (Hydromorphone Hcl 0.5 Mg/0.5 Ml Syringe) 0.5 mg IVPUSH Q4H PRN; Protocol PRN Reason: Pain, Severe (Pain Scale 7-10) Lactated Ringer's (Lr) 1,000 mls @ 100 mls/hr IVCONT .Q10H [facility] Last Admin: 06/21/23 15:46 Dose: 100 mls/hr Cefazolin Sodium/Dextrose (Ancef) 2 gm in 50 mls @ 100 mls/hr IV Q8H LIVIA Stop: 06/22/23 01:00 Lactated Ringer's (Lr) 1,000 mls @ 100 mls/hr IVCONT .Q10H [facility] Last Admin: 06/21/23 15:50 Dose: Not Given Levothyroxine Sodium (Levothyroxine Sodium 75 Mcg Tablet) 75 mcg PO QAM [facility] Losartan Potassium (Losartan Potassium 50 Mg Tablet) 100 mg PO BEDTIME LIVIA; Protocol Methocarbamol (Methocarbamol 500 Mg Tablet) 500 mg PO TID LIVIA Non-Formulary Medication (Calcium Carbonate-Vitamin D3) 1 tab PO BID LIVIA Non-Formulary Medication (Diclofenac Sodium) 2 gm TOPICAL BID [facility] Non-Formulary Medication (Ofloxacin) 10 drop EAR-BOTH BID PRN PRN Reason: Pain Non-Formulary Medication (Rosuvastatin) 10 mg PO BEDTIME [facility] Omeprazole (Omeprazole 20 Mg Capsule.Dr) 20 mg PO DAILY [facility] Ondansetron HCl (Ondansetron Hcl 4 Mg/2 Ml Vial) 4 mg IVPUSH Q8H PRN PRN Reason: Nausea and Vomiting Oxycodone HCl (Oxycodone Hcl Immed Release 5 Mg Tablet) 5 mg PO Q4H PRN PRN Reason: Pain, Moderate(Pain Scale 4-6) Oxycodone HCl (Oxycodone Hcl Immed Release 5 Mg Tablet) 10 mg PO Q4H PRN PRN Reason: Pain, Moderate(Pain Scale 4-6) Oxycodone HCl (Oxycodone Hcl Er 10 Mg Tab.Er.12h) 10 mg PO BID [facility] Sodium Chloride (0.9 % Sodium Chloride Flush 3 Ml Syringe) 3 ml IVFLUSH QSHIFT [facility] Last Admin: 06/21/23 15:49 Dose: Not Given Home Medications ?Medication ?Instructions ?Recorded ?Confirmed ?Last Taken ?Type amlodipine 10 mg tablet 10 mg PO DAILY 09/29/21 06/15/23 06/21/23 History clonidine HCl 0.2 mg tablet 0.2 mg PO BEDTIME 09/29/21 06/15/23 Unknown History diclofenac sodium 1 % topical gel 2 g topical BID 09/29/21 06/15/23 Unknown History levothyroxine 75 mcg tablet 75 mcg PO QAM 09/29/21 06/15/23 Unknown History lidocaine 5 % topical ointment topical BID PRN Pain 09/29/21 06/15/23 Unknown History losartan 100 mg tablet 100 mg PO BEDTIME 09/29/21 06/15/23 Unknown History ofloxacin 0.3 % ear drops 10 drp otic (ears) BID PRN Pain 09/29/21 06/15/23 Unknown History omeprazole 20 mg capsule,delayed 20 mg PO DAILY 09/29/21 06/15/23 Unknown History release rosuvastatin 10 mg tablet 10 mg PO BEDTIME 09/29/21 06/15/23 Unknown History acetaminophen 500 mg tablet 500 mg PO Q6H PRN mild pain 06/14/23 06/15/23 Unknown History calcium carbonate 600 mg-vitamin 1 tab PO BID 06/14/23 06/15/23 Unknown History D3 10 mcg (400 unit) tablet hydrochlorothiazide 25 mg tablet 25 mg PO DAILY 06/14/23 06/15/23 06/21/23 History meloxicam 15 mg tablet 15 mg PO DAILY 06/14/23 06/15/23 06/07/23 History Physical Exam Vital Signs and Narrative: Vital Signs: Last Vital Signs Temp 98 F 06/21/23 15:05 Pulse 71 06/21/23 15:20 Resp 16 06/21/23 15:20 BP 144/75 H 06/21/23 15:20 Pulse Ox 97 06/21/23 15:20 O2 Del Method Room Air 06/21/23 15:20 O2 Flow Rate 2 06/21/23 15:20 BMI result Body Mass Index 28.7 Constitutional - Awake and Alert, No apparent distress Eyes - PERRLA, EOMI Cardiovascular - S1S2, RRR, No edema Respiratory - Normal lung expansion, Normal respiratory effort, No respiratory distress, CTA bilaterally Extremities - no calf tenderness bilaterally, no swelling Skin - Warm/Dry Neurological - Alert & oriented x3, sensation in tact Psychological - Appropriate affect Assessment and Plan (1) Arthritis of right hip: Status: Acute Plan 77 year old female with history of htn, hld, and gerd admitted to orthopedic surgery wtih consult placed to hospitalist service for medical management. #OA R Hip s/o R MALIA POD 0 -plan per ortho surgery #HTN -resume amlodipine, losartan am -hold clonidine, hctz to prevent hypotension. Resume on discharge #GERD -ppi Thank you for allowing me to participate in this consult. Signing off at this time. Please do not hesitate to call for further questions or for any acute medical issues.
[2023-06-21] MEDS: methocarbamoL 500 MG TABLET PO ×2 (16:08→19:23)
[2023-06-21] MEDS: ceFAZolin Sodium/Dextrose,Iso 2 GM/50 ML PIGGYBACK IV ×2 (16:09→23:56)
[2023-06-21] MEDS: HYDROmorphone HCl 0.5 MG/0.5 ML SYRINGE 0.25 MG IVPUSH (17:03)
[2023-06-21] MEDS: oxyCODONE HCl Immed Release 5 MG TABLET PO (18:35)
[2023-06-21] MEDS: Aspirin 325 MG TABLET PO ×2 (18:35→19:24)
--- NOTE | 2023-06-21 18:59 | PHA.MEDREC ---
Pharmacy Consult ? Medication Reconciliation Pharmacy has reviewed the medication reconciliation, also spoke to patient. She is no longer taking diclofenac gel nor ofloxacin ear drops.
[2023-06-21] MEDS: Docusate Sodium 100 MG CAPSULE PO (19:23)
[2023-06-21] MEDS: Atorvastatin Calcium 40 MG TABLET PO (19:23)
[2023-06-21] MEDS: Losartan Potassium 50 MG TABLET 100 MG PO (19:23)
[2023-06-21] MEDS: Calcium + Vitamin D 250 MG TABLET 500 MG PO (19:24)
[2023-06-21] MEDS: Gabapentin 100 MG CAPSULE PO (19:24)
[2023-06-21] MEDS: Celecoxib 200 MG CAPSULE PO (19:24)
[2023-06-22] MEDS: Lactated Ringers 1,000 ML 100 ML IVCONT ×3 (01:36→21:27)
[2023-06-22] MEDS: HYDROmorphone HCl 0.5 MG/0.5 ML SYRINGE 0.25 MG IVPUSH ×2 (02:53→16:25)
[2023-06-22 03:35] VITALS: BP 129/76; PULSE 65; RESP 18; TEMP 36.5; O2SAT 98
[2023-06-22 05:32] LABS: MANUAL DIFF FLAG NO
[2023-06-22] MEDS: Levothyroxine Sodium 75 MCG TABLET PO (05:39)
[2023-06-22 05:45] LABS: Hematocrit 36.9 % (37.0-47.0); Hemoglobin 13.2 g/dl (12.0-16.0); Imm Gran Abs Auto 0.05 X10*3/uL (0.00-0.03); Imm Gran Pct Auto 0.4 % (0.0-0.4); Lymphocytes Absolute Auto 1.6 X10*3/uL (1.2-4.9); Lymphocytes Percent Auto 12.7 % (20-40); Mean Corpuscular HGB Conc 35.8 g/dl (31.0-35.0); Mean Corpuscular Hemoglobin 30.6 pg (27.0-33.0); Mean Corpuscular Volume 85.4 fL (80.0-98.0); Monocytes Absolute Auto 1.1 X10*3/uL (0.1-1.2); Monocytes Percent Auto 8.4 % (2-11); Neutrophils Absolute Auto 9.9 x10*3/uL (2.0-8.3); Neutrophils Percent Auto 78.5 % (45-73); Platelet Count 235 X10*3/uL (160-400); Red Blood Count 4.32 X10*6/uL (4.20-5.50); White Blood Count 12.6 X10*3/uL (4.8-10.8)
[2023-06-22 05:54] LABS: Anion Gap 13 (12-20); Blood Urea Nitrogen 14 mg/dL (9-16); Calcium 9.9 mg/dL (8.4-10.2); Carbon Dioxide 27 mmol/L (22-29); Chloride 105 mmol/L (96-108); Creatinine Clr Calc Pharmacy 50.4; Estimated Glomerular Filt Rate > 60; Glucose Fasting 131 mg/dL (60-99); Sodium 141 mmol/L (135-145)
[2023-06-22 07:19] VITALS: BP 137/78; PULSE 66; RESP 16; TEMP 36.7; O2SAT 97
[2023-06-22 07:33] LABS: Glucose, Whole Blood 106 mg/dL (60-115)
--- NOTE | 2023-06-22 07:34 | P.PNOP_ITS ---
Subjective Subjective Date of Service: 06/22/23 Interval history: POD 1 s/p RT MALIA no overnight events resting in bed Physical Exam Vital Signs: Vital Signs: Last Vital Signs Temp 98.1 F 06/22/23 07:19 Pulse 66 06/22/23 07:19 Resp 16 06/22/23 07:19 BP 137/78 06/22/23 07:19 Pulse Ox 97 06/22/23 07:19 O2 Del Method Nasal Cannula 06/22/23 07:19 O2 Flow Rate 2 06/22/23 07:19 BMI result Body Mass Index 28.7 Const: General: cooperative, healthy appearing and no acute distress Resp: Effort & Inspection: normal respiratory effort and able to speak in complete sentences Cardio: Rate: regular rate Peripheral pulses: Peripheral pulses 2+ throughout GI: Palpation (GI): Soft to palpation Skin: General skin exam: no rashes or lesions noted Extrem: Other: bandage clean dry and intact. [place] intact. No erythema or effusion. Calf supple nontender. Neurovascularly intact. Procedures Date of Service Date of Service: 06/22/23 Progress Note: A&P Assessment and plan (1) History of total right hip replacement: Status: Acute Assessment and Plan: * Continue pain mgmnt * Begin Aspirin for dvt ppx * begin PT for RT MALIA * Dispo planning-Pending PT eval, pain mgmnt Time Spent With Patient Time: Total time managing care of this patient today ____ minutes. Quality Stroke Does the patient have a stroke diagnosis?: No VTE Prior VTE?: No VTE Risk Level:: Surgical - very high VTE Device Contraindication: N/A - Device Ordered VTE Drug Contraindication: N/A - Med Ordered
[2023-06-22] MEDS: 0.9 % Sodium Chloride Flush 3 ML SYRINGE IVFLUSH (08:08)
[2023-06-22] MEDS: Omeprazole 20 MG CAPSULE.DR PO (08:09)
[2023-06-22] MEDS: amLODIPine Besylate 10 MG TABLET PO (08:09)
[2023-06-22] MEDS: Calcium + Vitamin D 250 MG TABLET 500 MG PO ×2 (08:09→20:23)
[2023-06-22] MEDS: Celecoxib 200 MG CAPSULE PO ×2 (08:09→20:23)
[2023-06-22] MEDS: oxyCODONE HCl ER 10 MG TAB.ER.12H PO ×2 (08:09→20:22)
[2023-06-22] MEDS: methocarbamoL 500 MG TABLET PO ×3 (08:10→20:23)
[2023-06-22] MEDS: Aspirin 325 MG TABLET PO ×2 (08:10→20:23)
[2023-06-22] MEDS: Docusate Sodium 100 MG CAPSULE PO ×2 (08:10→20:23)
[2023-06-22 09:21] VITALS: PULSE 94; O2SAT 92
--- NOTE | 2023-06-22 11:35 | MHC.CM.PN ---
pt had been living with family agreebale to str referrals made
--- NOTE | 2023-06-22 13:42 | PM.DS ---
DS: Providers Provider Date of Service: 06/23/23 <Freddy Howe PA-C - Last Filed: 06/23/23 14:00> Date of admission: 06/21/23 07:34 <Sadie Leroy PA-C - Last Filed: 06/22/23 13:50> Primary care physician: Ish Warren MD <Sadie Leroy PA-C - Last Filed: 06/22/23 13:50> Consults: 06/21/23 15:32 Consult to Hospitalist Routine Comment: Consulting Provider: Hospitalist Reason For Exam: routine medical management <OSKAR Bobo Last Filed: 06/22/23 13:50> DS: Diagnosis Discharge Diagnosis (1) History of total right hip replacement: Status: Acute <OSKAR Bobo Last Filed: 06/22/23 13:50> DS: Summary Hospital Course Hospital Course: The patient underwent a successful right total hip arthroplasty, they were transferred to PACU and then to the floor to recover. During their stay, their vitals were stable, afebrile at 98.7. Labs were unremarkable, H/H 13.2/36.9. POD 1 they were started on Aspirin 325mg po bid for DVT ppx, they also received Physical Therapy services twice a day. Prior to discharge, their dressing was clean dry and intact and the plan was to be discharged home with VNA services. <Sadie Leroy PA-C - Last Filed: 06/22/23 13:50> Time Attestation Discharge Coordination Time (in mins): 30 <Sadie Leroy PA-C - Last Filed: 06/22/23 13:50> Quality: Safe Use of Opioids Does Pt have an Active Cancer Diagnosis on the Problem List?: No <Sadie Leroy PA-C - Last Filed: 06/22/23 13:50> Quality: Stroke Does the patient have a stroke diagnosis?: No <Sadie Leroy PA-C - Last Filed: 06/22/23 13:50> Physical Exam Vital Signs: Vital Signs: Last Vital Signs Temp 98.1 F 06/22/23 07:19 Pulse 94 06/22/23 09:21 Resp 16 06/22/23 07:19 BP 137/78 06/22/23 07:19 Pulse Ox 92 06/22/23 09:21 O2 Del Method Nasal Cannula 06/22/23 07:19 O2 Flow Rate 2 06/22/23 07:19 BMI result Body Mass Index 28.7 <Sadie Leroy PA-C - Last Filed: 06/22/23 13:50> Const: General: cooperative, healthy appearing and no acute distress <Sadie Leroy PA-C - Last Filed: 06/22/23 13:50> Resp: Effort & Inspection: normal respiratory effort and able to speak in complete sentences <Sadie Leroy PA-C - Last Filed: 06/22/23 13:50> Cardio: Rate: regular rate <Sadie Leroy PA-C - Last Filed: 06/22/23 13:50> Peripheral pulses: Peripheral pulses 2+ throughout <Sadie Leroy PA-C - Last Filed: 06/22/23 13:50> GI: Palpation (GI): Soft to palpation <Sadie Leroy PA-C - Last Filed: 06/22/23 13:50> Skin: General skin exam: no rashes or lesions noted <Sadie Leroy PA-C - Last Filed: 06/22/23 13:50> Extrem: Other: Right hip bandage clean dry and intact. [place] intact. No erythema or effusion. Calf supple nontender. Neurovascularly intact. <Sadie Leroy PA-C - Last Filed: 06/22/23 13:50> DS: Data Data Completed and Pending Pending studies at discharge: Pending at discharge 06/21/23 12:06 Surgical [PTH] Routine <Sadie Leroy PA-C - Last Filed: 06/22/23 13:50> Labs on day of discharge: Laboratory Results - last 24 hr 06/22/23 06/22/23 05:04 07:18 WBC 12.6 H RBC 4.32 Hgb 13.2 Hct 36.9 L MCV 85.4 MCH 30.6 MCHC 35.8 H RDW 12.0 Plt Count 235 MPV 12.0 Immature Gran % (Auto) 0.4 Neut % (Auto) 78.5 H Lymph % (Auto) 12.7 L [place] % (Auto) 8.4 Eos % (Auto) 0.0 Baso % (Auto) 0.0 Lymph # (Auto) 1.6 [place] # (Auto) 1.1 Eos # (Auto) 0.0 Baso # (Auto) 0.0 Abs Immat Gran (auto) 0.05 H Absolute Neuts (auto) 9.9 H Absolute Nucleated RBC 0.000 Nucleated RBC % (auto) 0.0 Sodium 141 Potassium 4.0 Chloride 105 Carbon Dioxide 27 Anion Gap 13 BUN 14 Creatinine 0.75 Estim Creat Clear Calc 50.4 Estimated GFR > 60 POC Glucose 106 Fasting Glucose 131 H Calcium 9.9 <Sadie Leroy PA-C - Last Filed: 06/22/23 13:50> Discharge Plan Discharge Anticipated Discharge Date/Time: 06/23/23 15:32 <Sadie Leroy PA-C - Last Filed: 06/22/23 13:50> Patient Disposition: Xfer SNF <Sadie Leroy PA-C - Last Filed: 06/22/23 13:50> Discharge Diagnosis: s/p RTHA <Sadie Leroy PA-C - Last Filed: 06/22/23 13:50> s/p RTHA <Freddy Howe PA-C - Last Filed: 06/23/23 14:00> Referrals: Sadie Leroy PA-C [Physician Principal [employer]] - 07/08/23 1:15 pm <Sadie Leroy PA-C - Last Filed: 06/22/23 13:50> Discharge Medications: New celecoxib 200 mg Capsule 200 mg PO BID 30 Days Qty: 60 0RF methocarbamol 500 mg Tablet 500 mg PO TID 7 Days Qty: 21 0RF acetaminophen 325 mg Tablet 650 mg PO Q6H PRN (Reason: Pain, Mild (Pain Scale 1-3)) 30 Days Qty: 240 0RF aspirin 325 mg Tablet 325 mg PO BID 42 Days Qty: 84 0RF docusate sodium 100 mg Capsule 100 mg PO BID 30 Days Qty: 60 0RF gabapentin 100 mg Capsule 100 mg PO BEDTIME 7 Days Qty: 7 0RF oxycodone 5 mg Tablet 5 mg PO Q4H PRN (Reason: Pain, Moderate(Pain Scale 4-6)) 7 Days Qty: 42 0RF Rx Instructions: Partial Fill upon patient request. Continued (DME) walker Misc See Rx Instructions .ROUTE .MEDSUPPLY Qty: 1 0RF Rx Instructions: Folding front wheeled walker hydrochlorothiazide 25 mg tablet 25 mg PO DAILY calcium carbonate-vitamin D3 600 mg-10 mcg (400 unit) tablet 1 tab PO BID rosuvastatin 10 mg tablet 10 mg PO BEDTIME losartan 100 mg tablet 100 mg PO BEDTIME amlodipine 10 mg tablet 10 mg PO DAILY clonidine HCl 0.2 mg tablet 0.2 mg PO BEDTIME levothyroxine 75 mcg tablet 75 mcg PO QAM omeprazole 20 mg capsule,delayed release(DR/EC) 20 mg PO DAILY lidocaine 5 % ointment 1 appl topical BID PRN (Reason: Pain) Discontinued meloxicam 15 mg tablet 15 mg PO DAILY acetaminophen 500 mg tablet 500 mg PO Q6H PRN (Reason: mild pain) <Sadie Leroy PA-C - Last Filed: 06/22/23 13:50> Discharge Orders: Discharge Order (Routine); Ordered 06/23/23 Ordered By: Freddy Howe <Sadie Leroy PA-C - Last Filed: 06/22/23 13:50> Diet: Advance to usual diet <Sadie Leroy PA-C - Last Filed: 06/22/23 13:50> Advance to usual diet <OSKAR Ramirez Last Filed: 06/23/23 14:00> Activity on Discharge: Use cane or walker <Sadie Leroy PA-C - Last Filed: 06/22/23 13:50> Use cane or walker <OSKAR Ramirez Last Filed: 06/23/23 14:00> Stand Alone Forms: Patient Portal Discharge page <Sadie Leroy PA-C - Last Filed: 06/22/23 13:50> Print Language: Serbian <Sadie Leroy PA-C - Last Filed: 06/22/23 13:50> Care Plan Goals: restore fxn to right hip <Sadie Leroy PA-C - Last Filed: 06/22/23 13:50> Health Concerns: none <Sadie Leroy PA-C - Last Filed: 06/22/23 13:50> Plan of Treatment: Physical Therapy for total hip arthroplasty: no precautions, gait training, ROM, strength Limit stair climbing No showering, no tub bath-keep dressing clean, dry and intact No driving x6 weeks Continue Aspirin x 6 weeks Follow up with [facility] in 2 weeks <Sadie Leroy PA-C - Last Filed: 06/22/23 13:50> Assessment: Stable for d/c <Sadie Leroy PA-C - Last Filed: 06/22/23 13:50>
--- NOTE | 2023-06-22 13:43 | P.F2F_ITS ---
Service Date Service Date: 06/22/23 Encounter Date of encounter: 06/23/23 Reasons for Services Signs and symptoms assessed: s/p RTHA. Pt. is considered homebound due to recent surgery. Unable to drive, poor balance, poor gait mechanics. Reason for physical therapy: home safety and mobility, therapeutic exercises, restore joint function, gait/transfer training, assess need for DME and ADL training Reason for occupational therapy: home safety and mobility, therapeutic exercises, restore joint function, gait/transfer training, assess need for DME and ADL training Homebound: Leaving the home is medically contraindicated at this time without the asist of a device and/or another person due th the listed conditions above and below. Reason homebound: unsteady gait / fall risk, leg weakness, pain with transfers, poor balance / fall risk and unable to drive Certification: Based on the above findings, I certify that this patient is confined to the home and needs intermittent nursing home care, physical therapy and/or speech therapy, or continues to need occupational therapy. The patient is under my care, and I have initiated the establishment of the plan of care. The patient will be followed by a physician who will periodically review the plan of care. Time Spent With Patient Time: Total time managing care of this patient today ____ minutes.
--- NOTE | 2023-06-22 15:35 | HO.POSTANES ---
Post Anesthesia Evaluation Post Anesthesia Evaluation Date of Service: 06/22/23 Vital Signs: Vital Signs Temp Pulse Resp BP Pulse Ox O2 Del Method O2 Flow Rate 06/22/23 09:21 94 92 06/22/23 07:19 98.1 F 66 16 137/78 97 Nasal Cannula 2 Anesthesia: General Mental Status: Awake Pain Control: Satisfactory Nausea/Vomiting: None Hydration: Adequate Anesthesia-Related Issues: No Anes. Related Issues
[2023-06-22 16:00] VITALS: BP 139/71; PULSE 78; RESP 15; TEMP 37; O2SAT 92
[2023-06-22 16:16] VITALS: PULSE 84; O2SAT 98
[2023-06-22 19:16] VITALS: BP 135/69; PULSE 86; RESP 16; TEMP 36.9; O2SAT 94
[2023-06-22] MEDS: Gabapentin 100 MG CAPSULE PO (20:23)
[2023-06-22] MEDS: Losartan Potassium 50 MG TABLET 100 MG PO (20:23)
[2023-06-22] MEDS: Atorvastatin Calcium 40 MG TABLET PO (20:23)
[2023-06-23] MEDS: oxyCODONE HCl Immed Release 5 MG TABLET PO ×3 (00:03→16:32)
[2023-06-23 02:50] VITALS: BP 127/57; PULSE 63; RESP 14; TEMP 36.1; O2SAT 94
[2023-06-23] MEDS: Levothyroxine Sodium 75 MCG TABLET PO (06:55)
[2023-06-23 07:34] LABS: Anion Gap 11 (12-20); Blood Urea Nitrogen 13 mg/dL (9-16); Calcium 9.1 mg/dL (8.4-10.2); Carbon Dioxide 29 mmol/L (22-29); Chloride 107 mmol/L (96-108); Estimated Glomerular Filt Rate > 60; Glucose Fasting 98 mg/dL (60-99); Sodium 143 mmol/L (135-145)
[2023-06-23] MEDS: Omeprazole 20 MG CAPSULE.DR PO (07:53)
[2023-06-23] MEDS: amLODIPine Besylate 10 MG TABLET PO (07:53)
[2023-06-23] MEDS: Aspirin 325 MG TABLET PO (07:53)
[2023-06-23] MEDS: Docusate Sodium 100 MG CAPSULE PO (07:53)
[2023-06-23] MEDS: methocarbamoL 500 MG TABLET PO ×2 (07:54→15:14)
[2023-06-23] MEDS: oxyCODONE HCl ER 10 MG TAB.ER.12H PO (07:54)
[2023-06-23] MEDS: Celecoxib 200 MG CAPSULE PO (07:54)
[2023-06-23] MEDS: Calcium + Vitamin D 250 MG TABLET 500 MG PO (07:54)
[2023-06-23 07:59] VITALS: BP 157/75; PULSE 71; RESP 18; TEMP 37.1; O2SAT 93
--- NOTE | 2023-06-23 09:12 | P.PNOP_ITS ---
Subjective Subjective Date of Service: 06/23/23 Interval history: POD 1 s/p RT MALIA no overnight events has been working with PT-rec STR Physical Exam Vital Signs: Vital Signs: Last Vital Signs Temp 98.7 F 06/23/23 07:59 Pulse 71 06/23/23 07:59 Resp 18 06/23/23 07:59 BP 157/75 H 06/23/23 07:59 Pulse Ox 93 06/23/23 07:59 O2 Del Method Room Air 06/23/23 07:59 O2 Flow Rate 2 06/22/23 07:19 BMI result Body Mass Index 28.7 Const: General: cooperative, healthy appearing and no acute distress Resp: Effort & Inspection: normal respiratory effort and able to speak in complete sentences Cardio: Rate: regular rate Peripheral pulses: Peripheral pulses 2+ throughout GI: Palpation (GI): Soft to palpation Skin: General skin exam: no rashes or lesions noted Extrem: Other: bandage clean dry and intact. [place] intact. No erythema or effusion. Calf supple nontender. Neurovascularly intact. Procedures Date of Service Date of Service: 06/23/23 Progress Note: A&P Assessment and plan (1) History of total right hip replacement: Status: Acute Assessment and Plan: * Continue pain mgmnt * Aspirin for dvt ppx * PT for RT MALIA * Dispo planning-Pending PT and rehab placement Time Spent With Patient Time: Total time managing care of this patient today ____ minutes. Quality Stroke Does the patient have a stroke diagnosis?: No VTE Prior VTE?: No VTE Risk Level:: Surgical - very high VTE Device Contraindication: N/A - Device Ordered VTE Drug Contraindication: N/A - Med Ordered
--- NOTE | 2023-06-23 09:36 | P.PNOP_ITS ---
Subjective Subjective Date of Service: 06/23/23 Interval history: POD 2 s/p RT MALIA no overnight events has been working with PT-rec STR Physical Exam Vital Signs: Vital Signs: Last Vital Signs Temp 98.7 F 06/23/23 07:59 Pulse 71 06/23/23 07:59 Resp 18 06/23/23 07:59 BP 157/75 H 06/23/23 07:59 Pulse Ox 93 06/23/23 07:59 O2 Del Method Room Air 06/23/23 07:59 O2 Flow Rate 2 06/22/23 07:19 BMI result Body Mass Index 28.7 Const: General: cooperative, healthy appearing and no acute distress Resp: Effort & Inspection: normal respiratory effort and able to speak in complete sentences Cardio: Rate: regular rate Peripheral pulses: Peripheral pulses 2+ throughout GI: Palpation (GI): Soft to palpation Skin: General skin exam: no rashes or lesions noted Extrem: Other: right hip bandage clean dry and intact. [place] intact. No erythema or effusion. Calf supple nontender. Neurovascularly intact. Procedures Date of Service Date of Service: 06/23/23 Progress Note: A&P Assessment and plan (1) History of total right hip replacement: Status: Acute Assessment and Plan: * Continue pain mgmnt * Aspirin for dvt ppx * PT/OT for RT MALIA * Dispo planning-Pending PT and rehab placement Time Spent With Patient Time: Total time managing care of this patient today ____ minutes. Quality Stroke Does the patient have a stroke diagnosis?: No VTE Prior VTE?: No VTE Risk Level:: Surgical - very high VTE Device Contraindication: N/A - Device Ordered VTE Drug Contraindication: N/A - Med Ordered
[2023-06-23] MEDS: Lactated Ringers 1,000 ML 100 ML IVCONT (10:22)
--- NOTE | 2023-06-23 14:16 | MHC.CM.PN ---
pt dcd today at 6 to [facility] booked thru [facility] auth number [id number]
--- NOTE | 2023-06-23 14:21 | MHC.CM.PN ---
pts daughter christi notified of dc
[2023-06-23 15:39] VITALS: BP 130/71; PULSE 85; RESP 20; TEMP 37; O2SAT 95
== END 2023-06-23 20:38 | disposition skilled nursing facility (03) | DRG 470 ==
LOC: HO.SSSA 07:37 → HO.S3 13:37
PROVIDERS: Physician Assistant; Admitting Provider Orthopaedic Surgery; PCP Internal Medicine Geriatric Medicine; Visit Provider Orthopaedic Surgery
PROC: 0SR904A Replacement of Right Hip Joint with Ceramic on Polyethylene Synthetic Substitute, Uncemented, Open Approach (ICD-10-PCS; CPT 27130; principal; 2023-06-21 11:00)
DX: M16.11 Unilateral primary osteoarthritis, right hip (principal); E03.9 Hypothyroidism, unspecified; I10 Essential (primary) hypertension; E78.5 Hyperlipidemia, unspecified; K21.9 Gastro-esophageal reflux disease without esophagitis; Z79.890 Hormone replacement therapy; Z79.899 Other long term (current) drug therapy
CPT/HCPCS: 36415; 72170; 80048; 82947; 85025; 86850; 86900; 86901; 87640; 87641; 88304; 88311; 97116; 97162; 97165; 97530; 97535; C1713; C1776; J0131; J0690; J1100; J1170; J2405; J2704; J3010; J3370; J7120

== ENCOUNTER → 2023-06-21 07:34 | Outpatient (BNV) | payer OTHER, SELFPAY | PROVIDERS: Admitting Provider Orthopaedic Surgery; PCP Internal Medicine Geriatric Medicine; Visit Provider Physician Assistant | DX: M16.11 Unilateral primary osteoarthritis, right hip (principal) | CPT/HCPCS: 99222 ==

== ENCOUNTER → 2023-06-21 07:34 | Outpatient (BNV) | payer OTHER, SELFPAY | PROVIDERS: Admitting Provider Orthopaedic Surgery; PCP Internal Medicine Geriatric Medicine; Visit Provider Orthopaedic Surgery | DX: Z47.1 Aftercare following joint replacement surgery (principal); Z96.641 Presence of right artificial hip joint | CPT/HCPCS: 27130; 99024 ==

== ENCOUNTER 2023-06-24 05:55 | Outpatient (REF) | payer OTHER, SELFPAY ==
[2023-06-24 05:58] LABS: MANUAL DIFF FLAG NO
[2023-06-24 06:05] LABS: Basophils Percent Auto 0.3 % (0-2); Eosinophils Absolute Auto 0.3 X10*3/uL (0.0-0.4); Hematocrit 37.5 % (37.0-47.0); Hemoglobin 13.2 g/dl (12.0-16.0); Imm Gran Abs Auto 0.04 X10*3/uL (0.00-0.03); Imm Gran Pct Auto 0.4 % (0.0-0.4); Lymphocytes Absolute Auto 2.6 X10*3/uL (1.2-4.9); Lymphocytes Percent Auto 25.6 % (20-40); Mean Corpuscular HGB Conc 35.2 g/dl (31.0-35.0); Mean Corpuscular Hemoglobin 30.3 pg (27.0-33.0); Mean Corpuscular Volume 86.2 fL (80.0-98.0); Monocytes Absolute Auto 1.1 X10*3/uL (0.1-1.2); Monocytes Percent Auto 10.6 % (2-11); Neutrophils Absolute Auto 6.1 x10*3/uL (2.0-8.3); Neutrophils Percent Auto 60.1 % (45-73); Platelet Count 226 X10*3/uL (160-400); Red Blood Count 4.35 X10*6/uL (4.20-5.50); Red Cell Distribution Width 12.2 % (11.0-16.0); White Blood Count 10.1 X10*3/uL (4.8-10.8)
[2023-06-24 06:15] LABS: Alanine Aminotransferase 10 U/L (0-31); Albumin Level 3.5 g/dL (3.5-5.0); Alkaline Phosphatase 99 U/L (39-117); Anion Gap 13 (12-20); Aspartate Amino Transferase 20 U/L (5-31); Bilirubin Total 0.7 mg/dL (0.0-1.0); Blood Urea Nitrogen 11 mg/dL (9-16); Calcium 9.4 mg/dL (8.4-10.2); Carbon Dioxide 26 mmol/L (22-29); Chloride 107 mmol/L (96-108); Estimated Glomerular Filt Rate > 60; Glucose Random 120 mg/dL (60-115); Potassium 3.6 mmol/L (3.3-5.1); Sodium 142 mmol/L (135-145); Total Protein 6.5 g/dL (6.5-8.0)
== END 2023-06-24 05:56 | disposition home or self-care (01) ==
LOC: HO.MMNH2L 05:55
PROVIDERS: Visit Provider Family Medicine
DX: Z98.890 Other specified postprocedural states (principal)
CPT/HCPCS: 36415; 80053; 85025

== ENCOUNTER 2023-06-28 05:44 | Outpatient (REF) | payer OTHER, SELFPAY ==
[2023-06-28 05:38] LABS: MANUAL DIFF FLAG NO
[2023-06-28 05:52] LABS: Basophils Percent Auto 0.4 % (0-2); Eosinophils Absolute Auto 0.4 X10*3/uL (0.0-0.4); Eosinophils Percent Auto 5.1 % (0-4); Hematocrit 32.6 % (37.0-47.0); Hemoglobin 11.1 g/dl (12.0-16.0); Imm Gran Abs Auto 0.07 X10*3/uL (0.00-0.03); Imm Gran Pct Auto 0.8 % (0.0-0.4); Lymphocytes Absolute Auto 2.6 X10*3/uL (1.2-4.9); Lymphocytes Percent Auto 31.4 % (20-40); Mean Corpuscular Hemoglobin 30.7 pg (27.0-33.0); Mean Corpuscular Volume 90.1 fL (80.0-98.0); Mean Platelet Volume 11.9 fL (9.4-12.3); Monocytes Absolute Auto 0.9 X10*3/uL (0.1-1.2); Monocytes Percent Auto 10.5 % (2-11); Neutrophils Absolute Auto 4.3 x10*3/uL (2.0-8.3); Neutrophils Percent Auto 51.8 % (45-73); Platelet Count 213 X10*3/uL (160-400); Red Blood Count 3.62 X10*6/uL (4.20-5.50); Red Cell Distribution Width 12.3 % (11.0-16.0); White Blood Count 8.3 X10*3/uL (4.8-10.8)
[2023-06-28 06:05] LABS: Anion Gap 12 (12-20); Blood Urea Nitrogen 30 mg/dL (9-16); Carbon Dioxide 25 mmol/L (22-29); Chloride 106 mmol/L (96-108); Estimated Glomerular Filt Rate > 60; Glucose Random 115 mg/dL (60-115); Sodium 140 mmol/L (135-145)
== END 2023-06-28 05:45 | disposition home or self-care (01) ==
LOC: HO.MMNH2L 05:44
PROVIDERS: Visit Provider Family Medicine
DX: Z98.890 Other specified postprocedural states (principal)
CPT/HCPCS: 36415; 80048; 85025

== ENCOUNTER 2023-06-30 06:23 | Outpatient (REF) | payer OTHER, SELFPAY ==
[2023-06-30 07:21] LABS: Anion Gap 12 (12-20); Blood Urea Nitrogen 24 mg/dL (9-16); Calcium 9.4 mg/dL (8.4-10.2); Carbon Dioxide 25 mmol/L (22-29); Chloride 107 mmol/L (96-108); Estimated Glomerular Filt Rate > 60; Glucose Random 101 mg/dL (60-115); Potassium 3.2 mmol/L (3.3-5.1); Sodium 141 mmol/L (135-145)
== END 2023-06-30 06:24 | disposition home or self-care (01) ==
LOC: HO.MMNH2L 06:23
PROVIDERS: Visit Provider Family Medicine
DX: E87.6 Hypokalemia (principal)
CPT/HCPCS: 36415; 80048

== ENCOUNTER 2023-07-01 05:44 | Outpatient (REF) | payer OTHER, SELFPAY ==
[2023-07-01 06:22] LABS: Anion Gap 12 (12-20); Blood Urea Nitrogen 20 mg/dL (9-16); Calcium 9.8 mg/dL (8.4-10.2); Carbon Dioxide 26 mmol/L (22-29); Chloride 106 mmol/L (96-108); Estimated Glomerular Filt Rate > 60; Glucose Random 112 mg/dL (60-115); Potassium 3.4 mmol/L (3.3-5.1); Sodium 141 mmol/L (135-145)
== END 2023-07-01 05:45 | disposition home or self-care (01) ==
LOC: HO.MMNH2L 05:44
PROVIDERS: Visit Provider Family Medicine
DX: E78.5 Hyperlipidemia, unspecified (principal); I10 Essential (primary) hypertension; E87.6 Hypokalemia
CPT/HCPCS: 36415; 80048

== ENCOUNTER 2023-07-05 06:03 | Outpatient (REF) | payer OTHER, SELFPAY ==
[2023-07-05 05:45] LABS: MANUAL DIFF FLAG NO
[2023-07-05 06:25] LABS: Basophils Percent Auto 0.4 % (0-2); Eosinophils Absolute Auto 0.5 X10*3/uL (0.0-0.4); Eosinophils Percent Auto 5.3 % (0-4); Hematocrit 32.4 % (37.0-47.0); Hemoglobin 11.3 g/dl (12.0-16.0); Imm Gran Pct Auto 1.1 % (0.0-0.4); Lymphocytes Absolute Auto 3.3 X10*3/uL (1.2-4.9); Lymphocytes Percent Auto 37.1 % (20-40); Mean Corpuscular HGB Conc 34.9 g/dl (31.0-35.0); Mean Corpuscular Hemoglobin 30.9 pg (27.0-33.0); Mean Corpuscular Volume 88.5 fL (80.0-98.0); Mean Platelet Volume 11.6 fL (9.4-12.3); Monocytes Absolute Auto 0.6 X10*3/uL (0.1-1.2); Neutrophils Absolute Auto 4.4 x10*3/uL (2.0-8.3); Neutrophils Percent Auto 49.1 % (45-73); Platelet Count 265 X10*3/uL (160-400); Red Blood Count 3.66 X10*6/uL (4.20-5.50); Red Cell Distribution Width 12.2 % (11.0-16.0)
[2023-07-05 06:27] LABS: Anion Gap 12 (12-20); Blood Urea Nitrogen 24 mg/dL (9-16); Calcium 9.4 mg/dL (8.4-10.2); Carbon Dioxide 25 mmol/L (22-29); Chloride 108 mmol/L (96-108); Estimated Glomerular Filt Rate > 60; Glucose Random 102 mg/dL (60-115); Potassium 3.2 mmol/L (3.3-5.1); Sodium 142 mmol/L (135-145)
== END 2023-07-05 06:04 | disposition home or self-care (01) ==
LOC: HO.MMNH2L 06:03
PROVIDERS: Visit Provider Family Medicine
DX: Z98.890 Other specified postprocedural states (principal)
CPT/HCPCS: 36415; 80048; 85025

== ENCOUNTER 2023-07-08 09:11 | Outpatient (REF) | payer OTHER, SELFPAY ==
--- NOTE | ~2023-07-08 | XR_ITS ---
EXAMINATION: XR PELVIS CLINICAL INFORMATION: Pain and hip. COMPARISON: 03/10/2023 and 06/21/2023 TECHNIQUE: AP view of the pelvis. FINDINGS: At the right hip, the femoral head prosthesis is well centered within the acetabular cup which exhibits normal lateral version and is stabilized by superior screws. The tip of the femoral stem is well centered in the medullary cavity of the proximal femoral diaphysis. No osteolysis or fracture around the hardware. An intact fixation cable encircles the subtrochanteric region of the proximal femur. At the chronically degenerated left hip, there is moderate osteophyte formation. No acute fracture or malalignment. The degenerated lumbar spine is partially included in the [id number]. XR/XR pelvis 1-2V IMPRESSION: * No evidence of postoperative complications from right total hip arthroplasty. * Moderate osteoarthritis of the left hip.
== END 2023-07-08 09:12 | disposition home or self-care (01) ==
LOC: HO.HOSX 09:11
PROVIDERS: Visit Provider Physician Assistant
DX: Z96.641 Presence of right artificial hip joint (principal)
CPT/HCPCS: 72170; 99212

== ENCOUNTER 2023-07-08 13:16 | Outpatient (AMB) | payer OTHER, SELFPAY ==
--- NOTE | 2023-07-08 13:28 | MHC.OFFVIS ---
Intake Visit Reasons: PO- RT MALIA 06/21/23 Intake Note: Ya is a 77 year old female who presents today post op appointment s/p RT MALIA 06/21/23 Patient report she has some pain and is currently in rehab. She states she is leaving rehab tomorrow. Allergies No Known Allergies Allergy (Verified 07/08/23 13:28) HPI HPI PO- RT MALIA 06/21/23 DR: Details: 77-year-old female, who is Belgian speaking, presents in the office today 17 days status post right total hip arthroplasty, which was performed by Dr. Ruiz on 06/21/2023. While in the office today the patient reports she has some pain. Confirms she is currently attending rehab but will be discharged tomorrow. PFS Medical History Arthritis of right hip DJD (degenerative joint disease) Back pain Arthritis GERD (gastroesophageal reflux disease) Hypothyroidism Hypertension Perforation of left tympanic membrane Surgical History History of bladder surgery (~2015) Hx of hand surgery Social History Household Members: Children Household Members Other:: daughter-Salma Housing: House Are you a primary post acute care nurse to a significant other at home: No Do you presently have visiting nurse or other home services: No Patient Tobacco Use Status: Never used Tobacco service: No Current occupational status: retired Review of Systems Const All systems reviewed & are unremarkable except as noted in HPI and below Physical Exam Const General: cooperative, healthy appearing and no acute distress Resp Effort & Inspection: normal respiratory effort and able to speak in complete sentences Cardio Rate: regular rate Peripheral pulses: Peripheral pulses 2+ throughout GI Palpation (GI): Soft to palpation Skin Lesions: no lesions Rashes: no rashes Extrem Other: Right hip: Incision site is clean, dry, and intact. Quincy intact. No surrounding erythema or drainage. No signs of infection. ROM in all planes. NVI. Assessment & Plan Assessment & Plan (1) History of total right hip replacement: Onset Date: ~06/21/23 Comment: Dr. Ruiz Code(s): Z96.641 - Presence of right artificial hip joint Category: Surgical Plan Ms. Olmos is a 77-year-old female, who is Belgian speaking, presents in the office today 17 days status post right total hip arthroplasty, which was performed by Dr. Ruiz on 06/21/2023. While in the office today the patient reports she has some pain. Confirms she is currently attending rehab but will be discharged tomorrow. Quincy were removed and steri-stripes were applied. The patient will transition to outpatient physical therapy. An order was placed today. Follow up will be in [address] Ruiz, or sooner if needed. I sent a prescription for an antibiotic prophylactically for possible dental work in the future. However, the patient was educated they should not have any major dental work for the first 3 months post op after the right total hip arthroplasty. X-rays of the right hip which were obtained while in the office today and were reviewed by me, Sadie Leroy PA-C, revealed intact orthopedic hardware with good alignment. Current pain regiment: -Acetaminophen 650 mg PO Q6H PRN -Gabapentin 100 mg PO Bedtime -Methocarbamol 500 mg PO TID -Oxycodone 5 mg PO Q4H PRN Orders: Orders XR pelvis 1-2V Today M25.559 - Pain in unspecified hip Medications: New amoxicillin 2,000 mg (4 x 500 mg) PO ONCE 4 tabs 0RF take 4 tabs by mouth 1 hour prior to dental ppx 1 day Patient Instructions: Scribed by Coco Polk medical supply technician, for Sadie Leroy PA-C on 07/08/2023 at 1:28 pm, EST. Coding Level of Care Code Global (60300) Diagnoses History of total right hip replacement Z96.641
== END 2023-07-08 14:18 | disposition home or self-care (01) ==
PROVIDERS: PCP Internal Medicine Geriatric Medicine; Visit Provider Physician Assistant
DX: Z96.641 Presence of right artificial hip joint (principal)
CPT/HCPCS: 99024

== ENCOUNTER 2023-08-05 11:03 | Outpatient (AMB) | payer OTHER, SELFPAY ==
--- NOTE | 2023-08-05 11:25 | A.OFFVIS_ITS ---
Intake Visit Reasons: 6 wk PO- RT MALIA 06/21/23 Intake Note: Ya is a 77 year old female who presents for her post operative appointment s/p RT MALIA 06/21/23 . The patient reports mild intermittent discomfort in her right hip. She denies any fevers or chills. She takes just Tylenol for her discomfort. Allergies No Known Allergies Allergy (Verified 08/05/23 11:35) Medication List - Last Reconciled 08/05/23 by Kiel Ruiz MD acetaminophen 650 mg (2 x 325 mg) PO Q6H PRN 30 days amlodipine 10 mg PO DAILY amoxicillin 2,000 mg (4 x 500 mg) PO ONCE 1 day aspirin 325 mg PO BID 42 days calcium carbonate-vitamin D3 600 mg-10 mcg (400 unit) 1 tab PO BID celecoxib 200 mg PO BID 30 days clonidine HCl 0.2 mg PO BEDTIME docusate sodium 100 mg PO BID 30 days gabapentin 100 mg PO BEDTIME 7 days hydrochlorothiazide 25 mg PO DAILY levothyroxine 75 mcg PO QAM lidocaine 5% 1 appl topical BID PRN losartan 100 mg PO BEDTIME methocarbamol 500 mg PO TID 7 days omeprazole 20 mg PO DAILY oxycodone 5 mg PO Q4H PRN 7 days rosuvastatin 10 mg PO BEDTIME walker Folding front wheeled walker [facility] Medical History Arthritis of right hip DJD (degenerative joint disease) Back pain Arthritis GERD (gastroesophageal reflux disease) Hypothyroidism Hypertension Perforation of left tympanic membrane Surgical History (Updated 08/05/23 @ 11:38 by Saira Buckley CMA) History of hip surgery (~06/21/23) History of bladder surgery (~2015) Hx of hand surgery Social History Household Members: Children Household Members Other:: daughter-Salma Housing: House Are you a primary ambulatory care to a significant other at home: No Do you presently have visiting nurse or other home services: No Patient Tobacco Use Status: Never used Tobacco service: No Current occupational status: retired Physical Exam Extrem Other: Right hip examination shows that the surgical incision is well healed, no erythema, mild diffuse swelling, minimal discomfort with range of motion Assessment & Plan Assessment & Plan (1) Right hip pain: Code(s): M25.551 - Pain in right hip Category: Medical Plan Ms. Olmos continues to do well after undergoing right total hip replacement surgery on 06/21/2023. She will continue with her physical therapy exercises. She does know to take antibiotics before any dental work. She will contact me prior to her follow-up appointment in 2 months should any questions or concerns arise. Feel free to call me at any time should questions regarding her orthopedic management arise. Coding Level of Care Code Global (93594) Diagnoses Right hip pain M25.551
== END 2023-08-05 11:49 | disposition home or self-care (01) ==
PROVIDERS: PCP Internal Medicine Geriatric Medicine; Visit Provider Orthopaedic Surgery
DX: M25.551 Pain in right hip (principal)
CPT/HCPCS: 99024

== ENCOUNTER → 2023-08-05 11:03 | Outpatient (BNVA) | payer OTHER, SELFPAY | PROVIDERS: PCP Internal Medicine Geriatric Medicine; Visit Provider Orthopaedic Surgery | DX: M25.551 Pain in right hip (principal) | CPT/HCPCS: 99212 ==

== ENCOUNTER 2023-09-15 11:56 | Outpatient (REF) | payer OTHER, SELFPAY ==
[2023-09-15 14:06] LABS: Anion Gap 12 (12-20); Blood Urea Nitrogen 20 mg/dL (9-16); Calcium 10.8 mg/dL (8.4-10.2); Carbon Dioxide 28 mmol/L (22-29); Chloride 107 mmol/L (96-108); Estimated Glomerular Filt Rate > 60; Glucose Random 90 mg/dL (60-115); Potassium 3.9 mmol/L (3.3-5.1); Sodium 143 mmol/L (135-145); ~HepC Num1 0.05 S/CO (0.00-0.79); ~Hepatitis C Antibody Nonreactive (Nonreactive)
[2023-09-15 14:12] LABS: TSH reflex Free T4 4.53 uIU/mL (0.32-4.0)
[2023-09-15 15:04] LABS: Free T4 (Free Thyroxine) 0.89 ng/dL (0.71-1.85)
== END 2023-09-15 11:57 | disposition home or self-care (01) ==
LOC: HO.HHCL 11:56
PROVIDERS: Visit Provider Internal Medicine Geriatric Medicine
DX: I10 Essential (primary) hypertension (principal); E03.8 Other specified hypothyroidism; Z11.59 Encounter for screening for other viral diseases
CPT/HCPCS: 36415; 80048; 84439; 84443; 86803

== ENCOUNTER 2023-10-19 09:26 | Outpatient (AMB) | payer OTHER, SELFPAY ==
--- NOTE | 2023-10-19 09:30 | MHC.OFFVIS ---
Vital Signs 10/19/23 09:31 Height 5 ft 2 in Weight 137 lb 2.04 oz BMI 25.1 BP 118/62 Blood Pressure Location Lt brachial Position Sitting Pulse 72 Pulse Source Pulse Oximeter Intake Visit Reasons: 3 month f/u after testing Drum Drier Operator Required: No Oracle Iam Consultant: Oracle Iam Consultant Present Allergies No Known Allergies Allergy (Verified 08/05/23 11:35) Medication List - Last Reconciled 10/19/23 by Chen Abdi NP-C acetaminophen 650 mg (2 x 325 mg) PO Q6H PRN 30 days amlodipine 10 mg PO DAILY calcium carbonate-vitamin D3 600 mg-10 mcg (400 unit) 1 tab PO BID celecoxib 200 mg PO BID 30 days clonidine HCl 0.2 mg PO BEDTIME levothyroxine 75 mcg PO QAM lidocaine 5% 1 appl topical BID PRN losartan 100 mg PO BEDTIME meloxicam 15 mg PO DAILY omeprazole 20 mg PO DAILY rosuvastatin 10 mg PO BEDTIME walker Folding front wheeled walker HPI HPI 3 month f/u after testing: Details: Ya is a 77-year-old female with past medical history of hypertension, hyperlipidemia, abnormal EKG, who recently underwent preop cardiovascular clearance for total hip replacement. She was deemed low cardiac risk and underwent her surgery without any known cardiac complications. She now presents for follow-up. Today she reports that she has been doing very well since her surgery. She is very happy with her results and tells me that her pain is resolved. She just got back from a 2 week trip to [place] with her family. She has no cardiac complaints. No chest discomfort, shortness of breath, lightheadedness, falls. She has no known cardiac history. Compliant with her medications. [facility] Medical History Arthritis of right hip DJD (degenerative joint disease) Back pain Arthritis GERD (gastroesophageal reflux disease) Hypothyroidism Hypertension Perforation of left tympanic membrane Surgical History History of hip surgery (~06/21/23) History of bladder surgery (~2015) Hx of hand surgery Social History Household Members: Children Household Members Other:: daughter-Salma Housing: House Are you a primary patient care associate to a significant other at home: No Do you presently have visiting nurse or other home services: No Patient Tobacco Use Status: Never used Tobacco service: No Current occupational status: retired Review of Systems Const All systems reviewed & are unremarkable except as noted in HPI and below ENT Denies dizziness Card Denies chest pain, Denies chest pain at rest, Denies chest pain with activity, Denies rapid heart rate, Denies pedal edema, Denies edema, Denies leg edema, Denies lightheadedness, Denies palpitations, Denies dyspnea, Denies dyspnea on exertion and Denies orthopnea Resp Denies cough, Denies dyspnea and Denies dyspnea on exertion GI Denies hematochezia and Denies change in stool character Musc Details: uses cane, hip discomfort improved Denies abnormal gait, Denies limited range of motion, Denies muscle cramps, Denies muscle weakness, Denies numbness, Denies radiating pain into limb, Denies stiffness and Denies tingling Neuro Denies abnormal gait, Denies dizziness, Denies numbness and Denies tingling Endo Denies palpitations Physical Exam Vital Signs: Last Vital Signs Pulse 72 10/19/23 09:31 BP 118/62 10/19/23 09:31 BMI result Body Mass Index 25.1 Const General: cooperative, healthy appearing, comfortable and no acute distress Orientation/consciousness: patient oriented x3 Neck Neck: Yes normal visual inspection and Yes no JVD Resp Effort & Inspection: normal respiratory effort Auscultation: clear to auscultation bilaterally, no crackles, no rales, no rhonchi and no wheezes Cardio Jugular venous distension: no JVD Rate: regular rate Rhythm: regular rhythm Heart sounds: S1 normal heart sound present, S2 normal heart sound present, no murmurs and no rubs Neuro General: patient oriented x3 Extrem General: Yes normal to inspection and No no pedal edema Psych Appearance: grossly normal Mental Status: mental status grossly normal Speech and movement: Normal speech and movement present Assessment & Plan Assessment & Plan (1) Abnormal EKG: Code(s): R94.31 - Abnormal electrocardiogram [ECG] [EKG] Category: Medical Plan: EKG done on last visit showed sinus rhythm with first-degree AV block, PVC, right axis deviation, can not exclude prior inferior and anterior infarcts, poor R-wave progression, low-voltage QRS, rate 68. Patient denies any known cardiac history. She had some mild shortness of breath with activity but was mostly sedentary due to her hip arthritis. She had cardiac risks of age, hypertension, hyperlipidemia. An Echocardiogram was done 06/16/2023 showing EF 60-65%, no valve abnormalities, mildly dilated ascending aorta 3.8 cm. Pharmacological nuclear stress test completed 06/18/2023 showed likely normal myocardial perfusion imaging, EF 63%. She underwent total hip replacement surgery on 06/21/2023, without any known cardiac complications. Today she reports denies any issues with chest discomfort, shortness of breath, leg swelling. Spent time going over test results and reviewing signs and symptoms of angina. At this time will put her cardiology follow-up as needed. (2) Arthritis of right hip: Code(s): M16.11 - Unilateral primary osteoarthritis, right hip Category: Medical Plan: As above. Now status post hip replacement surgery. Plan Time spent on chart review, documentation, interview and assessment Coding Level of Care Code Est Pt Level 3 (89696) Diagnoses Abnormal EKG R94.31 Arthritis of right hip M16.11 Time Spent (min) 22
[2023-10-19 09:31] VITALS: BP 118/62; PULSE 72; BMI 25.1
== END 2023-10-19 09:52 | disposition home or self-care (01) ==
PROVIDERS: PCP Internal Medicine Geriatric Medicine; Visit Provider Nurse Practitioner Family
DX: R94.31 Abnormal electrocardiogram [ECG] [EKG] (principal); M16.11 Unilateral primary osteoarthritis, right hip
CPT/HCPCS: 99213

== ENCOUNTER → 2023-10-19 09:26 | Outpatient (BNVA) | payer OTHER, SELFPAY | PROVIDERS: PCP Internal Medicine Geriatric Medicine; Visit Provider Nurse Practitioner Family | DX: R94.31 Abnormal electrocardiogram [ECG] [EKG] (principal); M16.11 Unilateral primary osteoarthritis, right hip | CPT/HCPCS: 99212 ==

== ENCOUNTER 2023-10-26 09:55 | Outpatient (AMB) | payer OTHER, SELFPAY ==
--- NOTE | 2023-10-26 10:16 | MHC.OFFVIS ---
Vital Signs 10/26/23 10:21 Height 5 ft 2 in Weight 137 lb BMI 25.1 Intake Visit Reasons: O/V- RT MALIA 06/21/23 Intake Note: Ya is a 77 year old female who presents with complaints of mild intermittent discomfort along the lateral aspect of her right hip after undergoing right total hip replacement surgery on 06/21/2023. She continues to walk with a cane when she is out of her home. She denies any fevers or chills. She continues with a home exercise program. She does not take any medicines for her discomfort. Awning Maker And Installer Services: Awning Maker And Installer Offered & Declined Allergies No Known Allergies Allergy (Verified 10/26/23 10:21) Medication List - Last Reconciled 10/26/23 by Kiel Ruiz MD acetaminophen 650 mg (2 x 325 mg) PO Q6H PRN 30 days amlodipine 10 mg PO DAILY calcium carbonate-vitamin D3 600 mg-10 mcg (400 unit) 1 tab PO BID celecoxib 200 mg PO BID 30 days clonidine HCl 0.2 mg PO BEDTIME levothyroxine 75 mcg PO QAM lidocaine 5% 1 appl topical BID PRN losartan 100 mg PO BEDTIME meloxicam 15 mg PO DAILY omeprazole 20 mg PO DAILY rosuvastatin 10 mg PO BEDTIME walker Folding front wheeled walker [facility] Medical History Arthritis of right hip DJD (degenerative joint disease) Back pain Arthritis GERD (gastroesophageal reflux disease) Hypothyroidism Hypertension Perforation of left tympanic membrane Surgical History History of hip surgery (~06/21/23) History of bladder surgery (~2015) Hx of hand surgery Social History Household Members: Children Household Members Other:: daughter-Salma Housing: House Are you a primary pet care associate to a significant other at home: No Do you presently have visiting nurse or other home services: No Patient Tobacco Use Status: Never used Tobacco service: No Current occupational status: retired Physical Exam Vital Signs: BMI result Body Mass Index 25.1 Const Other: Well-nourished well-developed very friendly male awake alert and oriented x3 in no acute distress Extrem Other: Right hip examination shows that the surgical incision is well healed, no erythema, minimal discomfort with range of motion, minimal tenderness to palpation over her bursa Results Reviewed Results Reviewed: X-rays of the patient's right hip taken today show a total hip arthroplasty in good position with no signs of loosening, no acute bony abnormalities Assessment & Plan Assessment & Plan (1) Right hip pain: Code(s): M25.551 - Pain in right hip Category: Medical Plan Ms. Olmos continues to do well after undergoing right total hip replacement surgery on 06/21/2023. She will continue with her physical therapy exercises. She does know to take antibiotics before any dental work. She will contact me prior to her annual follow-up appointment should any questions or concerns arise. Feel free to call me at any time should questions regarding her orthopedic management arise. I spent 22 minutes in reviewing the patient's records and imaging studies, seeing the patient and documenting in the medical record. Orders: Orders XR hip RT min 2V Today M25.551 - Pain in right hip Medications: New amoxicillin Take four caps (2,000 mg) one hour before any dental work 2,000 mg (4 x 500 mg) PO ONCE 20 caps 2RF Coding Level of Care Code Est Pt Level 3 (65860) Diagnoses Right hip pain M25.551
[2023-10-26 10:21] VITALS: BMI 25.1
== END 2023-10-26 10:28 | disposition home or self-care (01) ==
PROVIDERS: PCP Internal Medicine Geriatric Medicine; Visit Provider Orthopaedic Surgery
DX: M25.551 Pain in right hip (principal); Z96.641 Presence of right artificial hip joint
CPT/HCPCS: 99213

== ENCOUNTER 2023-10-26 10:21 | Outpatient (REF) | payer OTHER, SELFPAY ==
--- NOTE | ~2023-10-26 | XR_ITS ---
EXAMINATION: XR HIP, RIGHT CLINICAL INFORMATION: Right hip pain COMPARISON: 07/08/2023 TECHNIQUE: Two views of the right hip. FINDINGS: Status post right total hip arthroplasty without evidence of hardware complication. Mild degenerative changes of the left hip joint. XR/XR hip RT min 2V IMPRESSION: Status post right total hip arthroplasty without evidence of hardware complication. Electronically signed by: Mayra Booth MD 11/23/2023 06:24 PM EDT
== END 2023-10-26 10:22 | disposition home or self-care (01) ==
LOC: HO.HOSX 10:21
PROVIDERS: Visit Provider Orthopaedic Surgery
DX: M25.551 Pain in right hip (principal)
CPT/HCPCS: 73502; 99212

== ENCOUNTER 2023-12-21 11:11 | Outpatient (REF) | payer OTHER, SELFPAY | END 2023-12-21 11:12 | disposition home or self-care (01) | LOC: HO.HHCL 11:11 | PROVIDERS: Visit Provider Internal Medicine Geriatric Medicine | DX: Z11.1 Encounter for screening for respiratory tuberculosis (principal) | CPT/HCPCS: 36415; 86481 ==

== ENCOUNTER 2024-02-16 16:21 | Outpatient (REF) | payer OTHER, SELFPAY ==
[2024-02-16 16:33] LABS: Appearance Urine Cloudy; Color Urine Yellow; Glucose Urine UA Negative (Negative); Leukocyte Esterase Urine Large (3+) (Negative); Nitrite Urine Positive (Negative); PH 6.5 (5.0-9.0); Specific Gravity - Urine 1.015 (1.005-1.025); UMIC TRIGGER UACC YES; Urine Blood Large (3+) (Negative); Urine Ketones Negative (Negative); Urine Protein Negative (Neg-Trace)
[2024-02-16 16:37] LABS: Bacteria Urine 4+ (None Seen); RBC Urine >20 /HPF (0-2); Squamous Epithelial Cell Urine 0-2 /HPF (0-2); UACC Culture Trigger YES; WBC Urine >50 /HPF (0-5)
== END 2024-02-16 16:22 | disposition home or self-care (01) ==
LOC: HO.HHCLNP 16:21
PROVIDERS: Visit Provider Nurse Practitioner Family
DX: Z00.00 Encounter for general adult medical examination without abnormal findings (principal); R82.90 Unspecified abnormal findings in urine
CPT/HCPCS: 81001; 87086; 87088; 87186

== ENCOUNTER 2024-02-21 10:19 | Outpatient (REF) | payer OTHER, SELFPAY ==
[2024-02-21 11:58] LABS: Appearance Urine Clear; Color Urine Yellow; Glucose Urine UA Negative (Negative); Leukocyte Esterase Urine Trace (Negative); Nitrite Urine Positive (Negative); PH 5.5 (5.0-9.0); UMIC TRIGGER UACC YES; Urine Blood Negative (Negative); Urine Ketones Negative (Negative); Urine Protein Negative (Neg-Trace)
[2024-02-21 12:05] LABS: Bacteria Urine 4+ (None Seen); Hyaline Casts Urine 0-2 /LPF (0-2); RBC Urine 0-2 /HPF (0-2); Squamous Epithelial Cell Urine 0-2 /HPF (0-2); UACC Culture Trigger YES; WBC Urine 0-5 /HPF (0-5)
[2024-02-24 03:48] LABS: TS Negative Control Passed; TS Panel A 0; TS Panel B 2; TS Positive Control Passed; TSpotTB Negative (Negative)
== END 2024-02-21 10:20 | disposition home or self-care (01) ==
LOC: HO.HHCL 10:19
PROVIDERS: Internal Medicine Geriatric Medicine; Visit Provider Nurse Practitioner Family
DX: Z11.1 Encounter for screening for respiratory tuberculosis (principal); Z00.00 Encounter for general adult medical examination without abnormal findings; R82.79 Other abnormal findings on microbiological examination of urine
CPT/HCPCS: 36415; 81001; 86481; 87086; 87088; 87186

== ENCOUNTER 2024-03-01 09:05 | Outpatient (REF) | payer OTHER, SELFPAY ==
[2024-03-01 11:49] LABS: Appearance Urine Turbid; Color Urine Yellow; Glucose Urine UA Negative (Negative); Leukocyte Esterase Urine Moderate (2+) (Negative); Nitrite Urine Positive (Negative); PH 5.5 (5.0-9.0); Specific Gravity - Urine 1.025 (1.005-1.025); UMIC TRIGGER UACC YES; Urine Blood Negative (Negative); Urine Ketones Negative (Negative); Urine Protein Negative (Neg-Trace)
[2024-03-01 11:54] LABS: Bacteria Urine 4+ (None Seen); Hyaline Casts Urine 0-2 /LPF (0-2); RBC Urine 0-2 /HPF (0-2); UACC Culture Trigger YES; WBC Urine 21-50 /HPF (0-5)
[2024-03-01 12:17] LABS: Alanine Aminotransferase 25 U/L (0-31); Albumin Level 4.2 g/dL (3.5-5.0); Alkaline Phosphatase 98 U/L (39-117); Anion Gap 12 (12-20); Aspartate Amino Transferase 29 U/L (5-31); Bilirubin Total 0.6 mg/dL (0.0-1.0); Blood Urea Nitrogen 17 mg/dL (9-16); Calcium 9.7 mg/dL (8.4-10.2); Carbon Dioxide 26 mmol/L (22-29); Chloride 108 mmol/L (96-108); Cholesterol 247 mg/dL (<200); Estimated Glomerular Filt Rate > 60; Glucose Random 102 mg/dL (60-115); HDL Cholesterol 48 mg/dL (>40); LDL Cholesterol Calculated 152 mg/dL (<100); Potassium 3.5 mmol/L (3.3-5.1); Sodium 142 mmol/L (135-145); Total Protein 7.4 g/dL (6.5-8.0); Triglycerides 238 mg/dL (<150)
[2024-03-01 12:48] LABS: Creatinine Urine 149.58 mg/dL; Microalbum/Creatinine Ratio Ur 42.7 ug/mg cr (<30)
== END 2024-03-01 09:06 | disposition home or self-care (01) ==
LOC: HO.HHCL 09:05
PROVIDERS: Nurse Practitioner Family; Visit Provider Internal Medicine Geriatric Medicine
DX: I10 Essential (primary) hypertension (principal); R60.0 Localized edema; R82.90 Unspecified abnormal findings in urine
CPT/HCPCS: 36415; 80053; 80061; 81001; 82043; 82570; 87086; 87088; 87186

== ENCOUNTER 2024-07-18 10:22 | Outpatient (AMB) | payer OTHER, SELFPAY ==
--- NOTE | 2024-07-18 10:30 | MHC.OFFVIS ---
Vital Signs 07/18/24 10:31 Height 5 ft 2 in Weight 137 lb BMI 25.1 Intake Visit Reasons: OV-RT MALIA 06/21/23 Intake Note: Ya is a 78 year old female who presents with complaints of intermittent discomfort along the lateral aspect of her right hip after undergoing right total hip replacement surgery on 06/21/2023. She continues with her home exercise program. She does not take any medicines for discomfort. She does walk with a cane when she is out of her home. Jewel Bearing Turner Required: No Allergies No Known Allergies Allergy (Verified 07/18/24 10:32) Medication List - Last Reconciled 07/18/24 by Kiel Ruiz MD acetaminophen 650 mg (2 x 325 mg) PO Q6H PRN 30 days amlodipine 10 mg PO DAILY amoxicillin 2,000 mg (4 x 500 mg) PO ONCE calcium carbonate-vitamin D3 600 mg-10 mcg (400 unit) 1 tab PO BID clonidine HCl 0.2 mg PO BEDTIME levothyroxine 75 mcg PO QAM lidocaine 5% 1 appl topical BID PRN losartan 100 mg PO BEDTIME meloxicam 15 mg PO DAILY omeprazole 20 mg PO DAILY rosuvastatin 10 mg PO BEDTIME walker Folding front wheeled walker [facility] Medical History Arthritis of right hip DJD (degenerative joint disease) Back pain Arthritis GERD (gastroesophageal reflux disease) Hypothyroidism Hypertension Perforation of left tympanic membrane Surgical History History of hip surgery (~06/21/23) History of bladder surgery (~2015) Hx of hand surgery Social History Household Members: Children Household Members Other:: daughter-Salma Housing: House Are you a primary child care center assistant director to a significant other at home: No Do you presently have visiting nurse or other home services: No Patient Tobacco Use Status: Never used Tobacco service: No Current occupational status: retired Physical Exam Vital Signs: BMI result Body Mass Index 25.1 Const Other: Well-nourished well-developed very friendly female awake alert and oriented x3 in no acute distress Extrem Other: Right hip examination shows that the surgical incision is well healed, no erythema, minimal discomfort with range of motion, minimal tenderness over her bursa Results Reviewed Results Reviewed: X-rays of the patient's right hip taken today show a total hip arthroplasty in good position with no signs of loosening, no acute bony abnormalities Assessment & Plan Assessment & Plan (1) Right hip pain: Code(s): M25.551 - Pain in right hip Category: Medical Plan Ms. Olmos continues to do well after undergoing right total hip replacement surgery on 07/01/2023. She does have intermittent discomfort most likely due to greater trochanteric bursitis. At this point the patient's discomfort is tolerable to her. She will continue with her home exercise program. She does know to take antibiotics before any dental work. She will contact me prior to her annual follow-up appointment should any questions or concerns arise. Feel free to call me at any time should questions regarding her orthopedic management arise. I spent 20 minutes in reviewing the patient's records and imaging studies, seeing the patient and documenting in the medical record. Orders: Orders XR hip RT min 2V Today M25.551 - Pain in right hip Coding Level of Care Code Est Pt Level 3 (80295) Complex EM visit Add On G2211 Diagnoses Right hip pain M25.551
[2024-07-18 10:31] VITALS: BMI 25.1
--- OUTSIDE RECORDS SUMMARY | 2024-07-18 11:53 | XMS_ITS | Encounter Summary ---
Author Organization [employer] Address [address] [place] [address] Care Team Providers Care Box Annealer Name Role Phone Name, Ish SPEARS Primary Care Provider [phone] Barb Benoit PharmD Unavailable [phone] Encounter Details Date Type Department Care Team ([facility] Contact Info) Description 09/08/2022 Abstract [facility] [address] [place] [address] Sumit Prieto, ALEC [address] [place] [address] Social History Tobacco Use Types Packs/Day Years Used Date Smoking Tobacco: Never Smokeless Tobacco: Never Alcohol Use Standard Drinks/Week Comments Never 0 (1 standard drink = 0.6 oz pur e alcohol) PHQ-2 Answer Date Recorded Patient Health Questionnaire-2 Score 0 04/28/2022 Depression Answer Date Recorded Patient Health Questionnaire-2 Score 0 04/28/2022 Comments Unknown Sex and Gender Information Value Date Recorded Sex Assigned at Female 01/12/2022 10:38 AM EDT Legal Sex Female 10:38 AM EDT Gender Identity Female 01/12/2022 10:38 AM EDT Sexual Orientation Straight 01/12/2022 10 :38 AM EDT COVID-19 Exposure Response Date Recorded In the last 10 days, have yo u been in contact with someone who was confirmed or suspected to have Coronavirus/COVID-19? No / Unsure 09/10/2022 9:21 AM EDT documented as of this encounter Plan of Treatment Upcoming Encounters Date Type Department Care Team ([facility] Contact Info) Description 07/28/2024 9:45 AM EDT Office Visit [facility] [address] [place] [address] Gifty Fagan, OD [address] [place] [address] documented as of this encounter Goals Goal Patient Goal Type Associated Problems Recent Progress Patient-Stated? Author Record your blood pressure periodically Blood Pressure No Barb Benoit, PharmD Blood Pressure < 140/90 Blood Pressure 128/76(2024 8:58 AM EST) No Barb Benoit, PharmD documented as of this encounter Visit Diagnoses Not on filedocumented in this encounter Care Teams Box Annealer Relationship Specialty Start Date End Date Name, MD Ish [address] [place] [address] PCP - General Family Medicine 12/02/20 Barb Benoit, PharmD [address] [place] [address] Pharmacist Internal Medicine 09/09/21 documented as of this encounter
--- OUTSIDE RECORDS SUMMARY | 2024-07-18 11:53 | XMS_ITS | Encounter Summary ---
Author Organization [employer] Address [address] [place] [address] Care Team Providers Care Train Operations Supervisor Name Role Phone Name, Ish SPEARS Primary Care Provider [phone] Barb Benoit PharmD Unavailable [phone] Encounter Details Date Type Department Care Team (Late st Contact Info) Description 04/13/2022 Orders Only [facility] [address] [place], [place] [id number] Laura Tim LPN Social History Tobacco Use Types Packs/Day Years Used Date Smoking Tobacco: Never Assessed Comments Unknown Sex and Gender Information Value Date Recorded Sex Assigned at Female 01/12/2022 10:38 AM EDT Legal Sex Female 10:38 AM EDT Gender Identity Female 01/12/2022 10:38 AM EDT Sexual Orientation Straight 01/12/2022 10 :38 AM EDT documented as of this encounter Plan of Treatment Upcoming Encounters Date Type Department Care Team (Late st Contact Info) Description 07/28/2024 9:45 AM EDT Office Visit [facility] [address] [place] [address] TarkaGifty, OD [address] [place] [address] documented as of this encounter Visit Diagnoses Not on filedocumented in this encounter Care Teams Train Operations Supervisor Relationship Specialty Start Date End Date Name, MD Ish [address] [place] [address] PCP - General Family Medicine 12/02/20 Barb Benoit, PharmD [address] [place] [id number] Pharmacist Internal Medicine 09/09/21 documented as of this encounter
--- OUTSIDE RECORDS SUMMARY | 2024-07-18 11:53 | XMS_ITS | Encounter Summary ---
Author Organization [employer] Address [address] [facility] [address] [place] [address] Care Team Providers Care Cottage Supervisor Name Role Phone Name, Ish SPEARS Primary Care Provider [phone] Barb Benoit PharmD Unavailable [phone] Encounter Details Date Type Department Care Team (Late st Contact Info) Description 06/09/2023 Telephone [facility] [address] [place], [place] [phone] Name, MD Ish [address] [place] [address] Social History Tobacco Use Types Packs/Day Years Used Date Smoking Tobacco: Never Smokeless Tobacco: Never Alcohol Use Standard Drinks/Week Comments Never 0 (1 standard drink = 0.6 oz pur e alcohol) Depression Answer Date Recorded Patient Health Questionnaire-9 Score 3 05/28/2023 Patient Health Questionnaire-9 Score 3 05/28/2023 Last PHQ-9: Questionnaire Data Not on file 0 05/28/2023 Housing Stability Answer Date Recorded What is your housing situation today? I have emiliano munoz 05/28/[address] you li ve. Do you have problems with any of the following? None of the above 05/28/2023 Food Insecurity Answer Date Recorded Within the past 12 months, y ou worried that your food would run out before you got money to buy more: Never True 05/28/2023 Within the past 12 months,th e food you bought just didn't last and you didn't have enough money to get more: Never True Transportation Answer Date Recorded In the past 12 months, has l ack of transportation kept you from medical appts, meetings, work or from getting things needed for daily living? No 05/28/2023 Utilities Answer Date Recorded In the past 12 months, has t he electric, gas, oil or water company threatened to shut off services in your home? No 05/28/2023 Depression Answer Date Recorded Patient Health Questionnaire-2 Score 2 05/28/2023 Comments Unknown Sex and Gender Information Value Date Recorded Sex Assigned at Female 01/12/2022 10:38 AM EDT Legal Sex Female 10:38 AM EDT Gender Identity Female 01/12/2022 10:38 AM EDT Sexual Orientation Straight 01/12/2022 10 :38 AM EDT documented as of this encounter Miscellaneous Notes * Telephone Encounter - Mariya Lomeli - 06/09/2023 2:15 PM EDT Tc from [place] with [facility] requesting for Pre op office note from 06/04/23 , EKG and labs to be faxed over to [phone]. documented in this encounter Plan of Treatment Upcoming Encounters Date Type Department Care Team (Late st Contact Info) Description 07/28/2024 9:45 AM EDT Office Visit [facility] [address] [place] [address] TarGifty levine, OD [address] [place] [address] documented as of this encounter Goals Goal Patient Goal Type Associated Problems Recent Progress Patient-Stated? Author Record your blood pressure periodically Blood Pressure No Puia, Barb, PharmD Blood Pressure < 140/90 Blood Pressure 128/76(2024 8:58 AM EST) No Puia, Barb, PharmD documented as of this encounter Visit Diagnoses Not on filedocumented in this encounter Additional Health Concerns Assessment Noted Time PHQ-9 Depression Total Score: 3 05/28/19 24 9:35 AM EDT documented as of this encounter Care Teams Cottage Supervisor Relationship Specialty Start Date End Date Name, MD Ish [address] [place] [address] PCP - General Family Medicine 12/02/20 Barb Benoit, PharmD [address] [place] [id number] Pharmacist Internal Medicine 09/09/21 documented as of this encounter
--- OUTSIDE RECORDS SUMMARY | 2024-07-18 11:53 | XMS_ITS ---
Author Organization [facility] Care Team Providers Care Computer Security Coordinator Name Role Phone Jyothi Lentz Joshua Unavailable Unavailable Xin Livingston Unavailable Unavailable Allergies and adverse reactions No Known Allergies Care Team Name Role Address Phone Organization Dates Javed Ham PCP [address], [address], [facility] (Office): : [facility] 06/24/2023 - 07/09/2023 Jyothi Lentz Attending Physician [address] [place] [address], [id number], [facility] 06/24/2023 - 07/09/2023 Xin Livingston Attending Physician [address] [place] [address], [id number], [facility] (Office): [facility] 06/24/2023 - 07/09/2023 Immunizations Immunization Status Vaccine Details Vaccine Code CodeSystem Date Notes Influenza completed Influenza, split virus, trivalent, injectable, contains preservative 141 CVX created date: 06/29/2023 administere d date: 12/07/2022 (COVID-19) Pfizer Original Primary Dose Vaccine 2 of 2 completed SARS-COV-2 (COVID-19) vaccine, mRNA, spike protein, LNP, preservative free, 30 mcg/0.3mL dose 208 CVX created date: 06/29/2023 administere d date: 06/05/2020 (COVID-19) 3891-1947 Updated Pfizer Vaccine completed SARS-COV-2 (COVID-19) vaccine, mRNA, spike protein, LNP, preservative free, martinez-sucrose, 30 mcg/0.3 mL dose 309 CVX created date: 06/29/2023 administere d date: 02/23/2023 (COVID-19) [facility] Original Primary Dose Vaccine 1 of 2 completed SARS-COV-2 (COVID-19) vaccine, mRNA, spike protein, LNP, preservative free, 30 mcg/0.3mL dose 208 CVX created date: 06/29/2023 administere d date: 05/16/2020 (COVID-19) [facility] Original Booster Vaccine completed SARS-COV-2 (COVID-19) vaccine, mRNA, spike protein, LNP, preservative free, 30 mcg/0.3mL dose 208 CVX created date: 06/29/2023 administere d date: 08/19/2021 (COVID-19) [facility] Original Booster Vaccine completed SARS-COV-2 (COVID-19) vaccine, mRNA, spike protein, LNP, preservative free, 30 mcg/0.3mL dose 208 CVX created date: 06/29/2023 administere d date: 03/23/2021 (COVID-19) [facility] Bivalent Vaccine completed SARS-COV-2 (COVID-19) vaccine, mRNA, spike protein, LNP, bivalent, preservative free, 30 mcg/0.3 mL dose, martinez-sucrose formulation 300 CVX created date: 06/29/2023 administere d date: 04/28/2022 (Tetanus, Diphtheria, and Acellular Pertussis) Tdap completed tetanus toxoid, reduced diphtheria toxoid, and acellular pertussis vaccine, adsorbed 115 CVX created date: 06/29/2023 administere d date: 08/21/2021 (Pneumococcal) PCV20- Conjugate 20-valent Vaccine completed Pneumococcal conjugate vaccine 20-valent (PCV20), polysaccharide [id number] conjugate, adjuvant, preservative free 216 CVX created date: 06/29/2023 administere d date: 01/28/2021 Mental Status Section Date Assessment Total Score Description 07/09/2023 BIMS 15 cognitively int act CAM 0 No delirium ind icated PHQ-9 00 06/30/2023 BIMS 15 cognitively int act CAM 0 No delirium ind icated PHQ-9 12 moderate depres dolly Problems Problem # Description Date of onset Resolved Date Code CodeSystem Concern Status 1 AFTERCARE FOLLOWING JOINT REPLACEMENT SURGERY 06/23/[address] active 2 ESSENTIAL (PRIMARY) HYPERTENSION 06/23/[address] active 3 GASTRO-ESOPHAGEAL REFLUX DISEASE WITHOUT ESOPHAGITIS 06/23/[address] active 4 HYPERLIPIDEMIA, UNSPECIFIED 06/23/[address] active 5 HYPOTHYROIDISM, UNSPECIFIED 06/23/[address] active 6 MUSCLE WASTING AND ATROPHY, NOT ELSEWHERE CLASSIFIED, MULTIPLE SITES 06/23/[address] active 7 OSTEOARTHRITIS OF HIP, UNSPECIFIED 06/23/[address] active 8 OTHER LOW BACK PAIN 06/23/[address] active 9 PRESENCE OF RIGHT ARTIFICIAL HIP JOINT 06/23/[address] active 10 UNSPECIFIED ABNORMALITIES OF GAIT AND MOBILITY 06/23/[address] active 11 UNSPECIFIED LACK OF COORDINATION 06/23/[address] active 12 UNSPECIFIED OSTEOARTHRITIS, UNSPECIFIED SITE 06/23/[address] active 13 UNSPECIFIED PROTEIN-CALORIE MALNUTRITION 06/23/[address] active Reason for Referral No Reasons for Referral Entered Social History Social History Observation Description Start Date End Date Code Code System Current Smoking Status Tobacco smoking consumption unknown 277528727 SNOMED CT Sex Assigned At Female 1945 [address]3847-5 [facility] Vital Signs Code Code System Vitals Name Values and Units Timing Information 9279-1 [facility] Respiratory Rate Value=18.0 Units=/m in 07/09/2023 8462-4 [facility]INC Blood Pressure-Diastolic Value=68 Un its=mmHg 07/09/2023 8480-6 [facility]INC Blood Pressure-Systolic Eidmt=116 Un its=mmHg 07/09/2023 8310-5 LOINC Body Temperature Value=98.2 Units=?? F 07/09/2023 8867-4 [facility] Heart rate Value=63.0 Units=/min 13154-8 [facility] O2 % BldC Oximetry Value=96.0 Units= % 07/09/2023 18012-3 [facility] Pain Level Value=1.0 07/09/2023 36428-8 [facility] Weight Xtlee=301.2 Units=Lbs 01/2024 8302-2 [facility] Height Value=60.0 Units=Inches 06/24/2023
--- OUTSIDE RECORDS SUMMARY | 2024-07-18 11:53 | XMS_ITS | Clinical Summary ---
Author Organization [employer] Address [address] [facility] [address] [place] [address] Care Team Providers Care Oracle Apex Developer Name Role Phone Name, Ish SPEARS Primary Care Provider [phone] Barb Benoit PharmD Unavailable [phone] Allergies No known active allergies Medications hydrocortisone 1 % ointment Apply topically 2 times daily. 28 g 1 08/05/19 23 Active acetaminophen (Tylenol) 500 MG tabletIndication s:Symptomatic irreversible pulpitis Take 1 tablet (500 mg) by mouth every 6 (six) hours if needed for mild pain for up to 30 doses. 30 tablet 09/08/19 23 Active Diclofenac Sodium 1 % gelIndications:C hronic pain of left knee Apply twice a day to left knee 150 g 3 02/24/20 23 Active amoxicillin (Amoxil) 500 MG capsule 07/08/19 24 Active Calcium + Vitamin D3 600-10 MG-MCG tablet 08/26/19 24 Active hydroCHLOROthiaz perez (HYDRODiuril) 25 MG tablet TAKE ONE TABLET DAILY AT NOON 30 tablet 11 12/28/19 24 Active amLODIPine (Norvasc) 10 MG tablet TAKE ONE TABLET DAILY AT NOON 90 tablet 1 02/24/20 24 Active omeprazole (PriLOSEC) [address] capsule TAKE 1 CAPSULE EVERY MORNING 30 TO 60 MINUTES BEFORE BREAKFAST 30 capsule 03/17/19 25 Active gabapentin (Neurontin) 100 MG capsule 07/09/19 24 Active methocarbamol (Robaxin) 500 MG tablet 07/09/19 24 Active celecoxib (CeleBREX) 200 MG capsule 07/09/19 24 Active levothyroxine (Synthroid, Levoxyl) 75 MCG tabletIndication s:Hypothyroidism , unspecified type TAKE ONE TABLET EVERY MORNING 30 tablet 2 05/12/19 25 Active cloNIDine (Catapres) 0.2 MG tabletIndication s:Hypertension, unspecified type TAKE ONE TABLET EVERY NIGHT AT BEDTIME 90 tablet 1 07/07/19 25 Active losartan (Cozaar) 100 MG tabletIndication s:Hypertension, unspecified type TAKE ONE TABLET EVERY NIGHT AT BEDTIME 90 tablet 1 07/07/19 25 Active rosuvastatin (Crestor) 10 MG tabletIndication s:High cholesterol TAKE ONE TABLET EVERY NIGHT AT BEDTIME 90 tablet 3 07/07/19 25 Active rosuvastatin (Crestor) 10 MG tabletIndication s:High cholesterol TAKE ONE TABLET EVERY NIGHT AT BEDTIME 90 tablet 3 05/07/19 24 025 Discontinued losartan (Cozaar) 100 MG tabletIndication s:Hypertension, unspecified type TAKE ONE TABLET EVERY NIGHT AT BEDTIME 90 tablet 1 11/19/19 24 025 Discontinued cloNIDine (Catapres) 0.2 MG tabletIndication s:Hypertension, unspecified type TAKE ONE TABLET EVERY NIGHT AT BEDTIME 90 tablet 1 12/29/19 24 025 Discontinued Active Problems Problem Noted Date Diagnosed Date Well adult health check 02/17/2024 Assessment & Plan (02/17/2024 8:16 PM EST): Urinary frequency with no pelvic pain, burning or pain with urination. POCT urine analysis positive for nitrites, leukocytes and blood. Blood pressure, hypothyroidism, GERD, hyperlipidemia under management with medication and PCP. Last vision check 3 years ago Plan Send urine sample to lab for culture Renal US Referral to vision clinic Continue taking all prescribed medication and follow all appointments UTI (urinary tract infection), bacterial 024 Assessment & Plan (02/17/2024 8:19 PM EST): POCT urine positive for nitrites, leukocytes, and blood Plan Send urine to lab for culture Start Macrobid 100 mg BID x 3 days Aftercare following joint replacement surgery Gastro-esophageal reflux disease without esophag itis 06/23/2023 Muscle wasting and atrophy, not elsewhere classified, multiple sites 06/23/2023 Osteoarthritis of hip, unspecified 06/23/2023 History of right hip replacement 06/23/2023 Unspecified osteoarthritis, unspecified site 12/2023 Unspecified abnormalities of gait and mobility 0 06/23/2023 Unspecified lack of coordination 06/23/2023 Unspecified protein-calorie malnutrition 024 Other low back pain 06/23/2023 Hyperlipidemia, unspecified 06/23/2023 Essential (primary) hypertension 06/23/2023 Hypothyroidism, unspecified 06/23/2023 Osteopenia 12/07/2022 COVID-19 04/28/2022 Hypertensive disorder 04/28/2022 Hypothyroidism 04/28/2022 Perforation of tympanic membrane 04/28/2022 Chronic low back pain 04/28/2022 High cholesterol 04/28/2022 Encounters Date Type Department Care Team Description 07/05/2024 Refill [facility] [address] [place], [place] [phone] Name, MD Ish Hypertension, unspecified type; High cholesterol 05/12/2024 Refill [facility] [address] [place] [address] Name, MD Ish Hypothyroidism, unspecified type from Last 3 Months Immunizations Name Administration Dates Next Due Influenza High-dose Quadriva lent Preservative Free 12/07/2022,12/30/2021 Influenza injectable quadriv alent preservative free 01/28/2021 Influenza, High Dose Seasona l, Preservative Free 12/21/2023 Influenza, IIV3, injectable 12/07/2022 Pfizer Covid-19 Vaccine 12+ 12/21/2023,1 04/26/2022,08/19/2021,2020,05/16/2020 Pfizer Covid-19 Vaccine 12+ Bivalent 04/28/2022 Pfizer Covid-19 Vaccine 12+ martinez-sucrose (Rico Cap) 08/19/2021 Pneumococcal Conjugate PCV 13 01/28/2021 Pneumococcal Conjugate PCV 20 11/01/2023 Tdap 08/21/2021 Social History Tobacco Use Types Packs/Day Years Used Date Smoking Tobacco: Never Smokeless Tobacco: Never Tobacco Cessation:Counseling Given: Not Answered Alcohol Use Standard Drinks/Week Comments Never 0 (1 standard drink = 0.6 oz pur e alcohol) Alcohol Answer Date Recorded Frequency of Alcohol Consumption Not on file 09/15/2023 Average Number of Drinks Not on file 024 Frequency of Binge Drinking Not on file 07/0 05/2023 Score 0 09/15/2023 Depression Answer Date Recorded Patient Health Questionnaire-9 [...] Patient Health Questionnaire-2 Score 2 05/28/2023 Comments No Sex and Gender Information Value Date Recorded Sex Assigned at Female 01/12/2022 10:38 AM EDT Legal Sex Female 10:38 AM EDT Gender Identity Female 01/12/2022 10:38 AM EDT Sexual Orientation Straight 01/12/2022 10 :38 AM EDT Last Filed Vital Signs Vital Sign Reading Time Taken Comments Blood Pressure 128/76 03/23/2024 8:58 AM EST Pulse 72 02/25/2024 3:03 PM EST Temperature 35.6 ??C (96.1 ??F) 02/25/2024 3:03 PM ES T Respiratory Rate 16 02/25/2024 3:03 PM EST Oxygen Saturation 97% 02/25/2024 3:03 PM EST Inhaled Oxygen Concentration - - Weight 64.8 kg (142 lb 12.8 oz) 02/25/2024 3:03 PM EST Height 149.9 cm (4' 11 ) 02/25/2024 3:03 PM EST Body Mass Index 28.84 02/25/2024 3:03 PM EST Plan of Treatment Upcoming Encounters Date Type Department Care Team (Late st Contact Info) Description 07/28/2024 9:45 AM EDT Office Visit [facility] [address] [place] [address] Gifty Fagan, OD [address] [place] [address] Health Maintenance Due Date Last Done Comments Zoster Vaccines (1 of 2) 1994 RSV Patients and Patients Aged 60 years or older (1 - 1-dose 75+ series) 10/28/2019 Depression Screening 05/27/2024 05/28/2023, 05/28/19 SDOH Screening 05/27/2024 05/28/2023 Alcohol/Substance Use Screening 09/14/2024 09/15/2023 Dental Oral Exam 09/21/2024 03/23/2024, 09/10/2022 Dental Prophylaxis 09/21/2024 03/23/2024 Tobacco Screening 03/23/2025 03/23/2024 Dental X-Ray: Bitewings 03/24/2025 03/23/19, 09/10/2022, 09/07/2022 Dental X-Ray: Full Mouth 09/11/2025 09/10/2022 Lipid Panel 03/01/2029 03/01/2024, 08/14, 05/08/2021, Additional history exists DTaP/Tdap/Td Vaccines (2 - Td or Tdap) 08/22/2031 08/21/2021 Hepatitis C Screening Completed 09/15/2023 Pneumococcal Vaccine: 50+ Years Completed 11/01/2023, 01/28/2021, 01/28/2021 COVID-19 Vaccine Completed 12/21/2023, 02/2023, 04/28/2022, Additional history exists Influenza Vaccine Completed 12/21/2023, , 12/07/2022, Additional history exists HIB Vaccines Aged Out No longer eligi ble based on patient's age to complete this topic HPV Vaccines Aged Out No longer eligi ble based on patient's age to complete this topic Hepatitis A Vaccines Aged Out No long er eligible based on patient's age to complete this topic Hepatitis B Vaccines Aged Out No long er eligible based on patient's age to complete this topic IPV Vaccines Aged Out No longer eligi ble based on patient's age to complete this topic Meningococcal Vaccine Aged Out No jami emilie eligible based on patient's age to complete this topic RSV under 20 months Aged Out No longe r eligible based on patient's age to complete this topic Rotavirus Vaccines Aged Out No longer eligible based on patient's age to complete this topic Goals Goal Patient Goal Type Associated Problems Recent Progress Patient-Stated? Author Record your blood pressure periodically Blood Pressure No Barb Benoit PharmD Blood Pressure < 140/90 Blood Pressure 128/76(2024 8:58 AM EST) No Barb Benoit PharmD Procedures Procedure Name Priority Date/Time Associated Diagnosis Comments PROPHYLAXIS - ADULT Routine 03/23/2024 9 :00 AM EST Edentulism Partial edentulism, class II Encounter for dental exam and cleaning w/o abnormal findings BITEWINGS - 4 RADIOGRAPHIC IMAGES Routine 03/23/2024 9:00 AM EST Edentulism Partial edentulism, class II Encounter for dental exam and cleaning w/o abnormal findings PERIODIC ORAL EVALUATION - ESTABLISHED PATIENT Routine 03/23/2024 9:00 AM EST Edentulism Partial edentulism, class II Encounter for dental exam and cleaning w/o abnormal findings LIPID PANEL, STANDARD Routine 03/01/2024 9:08 AM EST Hypertension, unspecified type Leg edema HEPATITIS C AB W/REFL TO HCV RNA, QN, PCR Routine 09/15/2023 12:04 PM EDT Need for hepatitis C screening test INTRAORAL - COMPLETE SERIES OF RADIOGRAPHIC IMAGES Routine 09/10/2022 10:30 AM EDT Dental caries from Last 3 Months or Most Recently Relevant to Health Maintenance Results * (ABNORMAL) Lipid Panel, Standard (03/01/2024 9:08 AM EST) Triglycerides 238(H) <150 mg/dL [facility] Comment:Desirable Triglyceri de: less than 150 mg/dLBorderline High Triglyceride 150-199 mg/dLHigh Triglyceride: 200-499 mg/dLVery High Triglyceride: greater than or equal to 5OO mg/dL Cholesterol 247(H) <200 mg/dL [facility] Comment:Desirable Cholestero l: less than 200 mg/dLBorderline High Cholesterol: 200-239 mg/dLHigh Cholesterol: greater than 239 mg/dL LDL Cholesterol Calculated 152(H) <100 mg/dL [facility] Comment:Desirable LDL: less than 100 mg/dLNear Optimal/Above Optimal LDL: 110- 129 mg/dLBorderline High LDL: 130-159 mg/dLHigh LDL: 160-189 mg/dLVery High LDL: greater than or equal to 190 mg/dL HDL Cholesterol 48 >40 mg/dL [facility] Comment:Desirable HDL: great er than 40 mg/dL Note: This HDL assay may give artificially low results in patients with liver disease. Blood Venous blood specimen / Unknown 03/01/2024 9:08 AM EST 03/01/2024 11:52 AM EST us Ish Warren MD LAB BLOOD ORDERABLES Final Resul t Performing Organization Address City/[facility]/ZIP Co de Phone Number [facility] [address] [place] [phone] * Hepatitis C Antibody with Reflex to HCV, RNA, Quantitative, Real-Time PCR (09/15/2023 12:04 PM EDT) Hepatitis C Antibody Nonreactive Nonreactive [facility] Comment:Antibodies to HCV no t detected; does not exclude early acuteHCV infection. Blood Venous blood specimen / Unknown 09/15/2023 12:04 PM EDT 09/15/2023 1:07 PM EDT us Ish Warren MD LAB BLOOD ORDERABLES Final Resul t Performing Organization Address City/[facility] Co de Phone Number [facility] [address] [place] [phone] from Last 3 Months or Most Recently Relevant to Health Maintenance Insurance [facility] [employer] (HMO D-SNP) [facility] Member Subscriber Plan / Payer (Ef fective 2023-Present) Name:Ya Olmos Relation to Subscriber:Self Name:Ya Olmos Payer ID:Not on file Group ID:[id number] Type:Not on file Address: [address] [address] Care Teams Oracle Apex Developer Relationship Specialty Start Date End Date Name, MD Ish [address] [place] [address] PCP - General Family Medicine 12/02/20 Barb Benoit PharmD [address] [place] [address] Pharmacist Internal Medicine 09/09/21
== END 2024-07-18 11:25 | disposition home or self-care (01) ==
LOC: HO.HOS 10:23
PROVIDERS: PCP Internal Medicine Geriatric Medicine; Visit Provider Orthopaedic Surgery
DX: M25.551 Pain in right hip (principal); Z96.641 Presence of right artificial hip joint
CPT/HCPCS: 99213

== ENCOUNTER → 2024-07-18 10:36 | Outpatient (BNV) | payer OTHER, SELFPAY | PROVIDERS: Visit Provider Radiology Diagnostic Radiology | DX: M16.12 Unilateral primary osteoarthritis, left hip (principal) | CPT/HCPCS: 73502 ==

== ENCOUNTER 2024-07-18 10:55 | Outpatient (REF) | payer OTHER, SELFPAY ==
--- NOTE | ~2024-07-18 | XR_ITS ---
EXAMINATION: XR HIP, RIGHT CLINICAL INFORMATION: M25.551 - Pain in right hip COMPARISON: October 26, 2023. TECHNIQUE: Two views of the right hip. FINDINGS: There is a metallic prosthesis with an acetabular and femoral component well-seated in the osseous structures. No gross loosening. No malalignment. There is a cerclage in the proximal diaphysis of the right femur. Sclerosis and the articular surface of the left acetabulum and asymmetric joint space narrowing. Degenerative changes in the sacroiliac joints. Spondylosis L4-5 and L5-S1. 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 Moderate osteoarthrosis, left hip. Electronically signed by: Asif Rodriguez MD 07/18/2024 11:52 AM EDT
--- OUTSIDE RECORDS SUMMARY | 2024-07-19 12:20 | XMS_ITS | Clinical Summary ---
Author Organization [employer] Address [address] [facility] [address] [place] [address] Care Team Providers Care Licensed Veterinary Technician Name Role Phone Name, Ish SPEARS Primary Care Provider [phone] Barb Benoit PharmD Unavailable [phone] Allergies No known active allergies Medications [...] Type Department Care Team Description 07/05/2024 Refill [facility]INE [address] [place], [place] [phone] Name, MD Ish Hypertension, unspecified type; High cholesterol 05/12/2024 Refill [facility] [address] [place] [address] Name, MD Ish Hypothyroidism, unspecified [...] Description 07/28/2024 9:45 AM EDT Office Visit [facility] OPTOMETRY [address] [place] [address] Gifty Fagan, OD [address] [place] [address] Health Maintenance Due Date Last Done Comments [...] 9:08 AM EST) Triglycerides 238(H) <150 mg/dL [facility] Comment:Desirable Triglyceri de: less than 150 mg/dLBorderline High Triglyceride 150-199 mg/dLHigh Triglyceride: 200-499 mg/dLVery High Triglyceride: greater than or equal to 5OO mg/dL Cholesterol 247(H) <200 mg/dL [facility] Comment:Desirable Cholestero l: less than 200 mg/dLBorderline High Cholesterol: 200-239 mg/dLHigh Cholesterol: greater than 239 mg/dL LDL Cholesterol Calculated 152(H) <100 mg/dL [facility] Comment:Desirable LDL: less than 100 mg/dLNear Optimal/Above Optimal LDL: 110- 129 mg/dLBorderline High LDL: 130-159 mg/dLHigh LDL: 160-189 mg/dLVery High LDL: greater than or equal to 190 mg/dL HDL Cholesterol 48 >40 mg/dL [facility] Comment:Desirable HDL: great er than 40 mg/dL Note: This HDL assay may give artificially low results in patients with liver disease. Blood Venous blood specimen / Unknown 03/01/2024 9:08 AM EST 03/01/2024 11:52 AM EST us Ish Warren MD LAB BLOOD ORDERABLES Final Resul t Performing Organization Address City/[facility]/ZIP Co de Phone Number [facility] [address] [place] [phone] * Hepatitis C Antibody with Reflex to HCV, RNA, Quantitative, Real-Time PCR (09/15/2023 12:04 PM EDT) Hepatitis C Antibody Nonreactive Nonreactive [facility] Comment:Antibodies to HCV no t detected; does not exclude early acuteHCV infection. Blood Venous blood specimen / Unknown 09/15/2023 12:04 PM EDT 09/15/2023 1:07 PM EDT us Ish Warren MD LAB BLOOD ORDERABLES Final Resul t Performing Organization Address City/[facility] Co de Phone Number [facility] [address] [place] [phone] from Last 3 Months or Most Recently Relevant to Health Maintenance Insurance [facility] OPTIONS (HMO D-SNP) [facility] Care Teams Licensed Veterinary Technician Relationship Specialty Start Date End Date Name, MD Ish [address] [place] [address] PCP - General Family Medicine 12/02/20 Barb Benoit PharmD [address] [place] [address] Pharmacist Internal Medicine 09/09/21
--- OUTSIDE RECORDS SUMMARY | 2024-07-19 12:20 | XMS_ITS ---
Author Organization [facility] Care Team Providers Care Shrimp Peeling Machine Tender Name Role Phone Jyothi Lentz Joshua Unavailable Unavailable Xin Livingston Unavailable Unavailable Allergies and adverse reactions No Known Allergies Care Team Name Role Address Phone Organization Dates Javed Ham PCP [address], [phone], [facility] (Office): : [facility] 06/24/2023 - 07/09/2023 Jyothi Lentz Attending Physician [address] [place] [address], [phone], [facility] 06/24/2023 - 07/09/2023 Xin Livingston Attending Physician [address] [place] [address], [phone], [facility] (Office): [facility] 06/24/2023 - 07/09/2023 Immunizations Immunization Status Vaccine Details Vaccine Code CodeSystem Date Notes Influenza completed Influenza, split virus, trivalent, injectable, contains preservative 141 CVX created date: 06/29/2023 administere d date: 12/07/2022 (COVID-19) Pfizer Original Primary Dose Vaccine 2 of 2 completed SARS-COV-2 (COVID-19) vaccine, mRNA, spike protein, LNP, preservative free, 30 mcg/0.3mL dose 208 CVX created date: 06/29/2023 administere d date: 06/05/2020 (COVID-19) [id number] Updated Pfizer Vaccine completed SARS-COV-2 (COVID-19) vaccine, mRNA, spike protein, LNP, preservative free, martinez-sucrose, 30 mcg/0.3 mL dose 309 CVX created date: 06/29/2023 administere d date: 02/23/2023 (COVID-19) [facility] Original Primary Dose Vaccine 1 of 2 completed SARS-COV-2 (COVID-19) vaccine, mRNA, spike protein, LNP, preservative free, 30 mcg/0.3mL dose 208 CVX created date: 06/29/2023 administere d date: 05/16/2020 (COVID-19) [facility] Original Booster Vaccine completed SARS-COV-2 (COVID-19) vaccine, mRNA, spike protein, LNP, preservative free, 30 mcg/0.3mL dose 208 CVX created date: 06/29/2023 administere d date: 08/19/2021 (COVID-19) [facility] Original Booster Vaccine completed SARS-COV-2 (COVID-19) vaccine, mRNA, spike protein, LNP, preservative free, 30 mcg/0.3mL dose 208 CVX created date: 06/29/2023 administere d date: 03/23/2021 (COVID-19) [facility] Bivalent Vaccine completed SARS-COV-2 (COVID-19) vaccine, mRNA, [...] completed Pneumococcal conjugate vaccine 20-valent (PCV20), polysaccharide CRE884 conjugate, adjuvant, preservative free 216 CVX created [...] 1 AFTERCARE FOLLOWING JOINT REPLACEMENT SURGERY 06/23/[id number] active 2 ESSENTIAL (PRIMARY) HYPERTENSION 06/23/[address] active 3 GASTRO-ESOPHAGEAL REFLUX DISEASE WITHOUT ESOPHAGITIS 06/23/[address] active 4 HYPERLIPIDEMIA, UNSPECIFIED 06/23/[address] active 5 HYPOTHYROIDISM, UNSPECIFIED 06/23/[address] active 6 MUSCLE WASTING AND ATROPHY, NOT ELSEWHERE CLASSIFIED, MULTIPLE SITES 06/23/[address] active 7 OSTEOARTHRITIS OF HIP, UNSPECIFIED 06/23/[address] active 8 OTHER LOW BACK PAIN 06/23/[address] active 9 PRESENCE OF RIGHT ARTIFICIAL HIP JOINT 06/23/[address] active 10 UNSPECIFIED ABNORMALITIES OF GAIT AND MOBILITY 06/23/[address] active 11 UNSPECIFIED LACK OF COORDINATION 06/23/[address] active 12 UNSPECIFIED OSTEOARTHRITIS, UNSPECIFIED SITE 06/23/[address] active 13 UNSPECIFIED PROTEIN-CALORIE MALNUTRITION 06/23/[address] active Reason for Referral No Reasons for Referral Entered Social History Social History Observation Description Start Date End Date Code Code System Current Smoking Status Tobacco smoking consumption unknown 370209709 SNOMED CT Sex Assigned At Female 1945 16193-5 [facility] Vital Signs Code Code System Vitals Name Values and Units Timing Information 9279-1 [facility] Respiratory Rate Value=18.0 Units=/m in 07/09/2023 8462-4 [facility] Blood Pressure-Diastolic Value=68 Un its=mmHg 07/09/2023 8480-6 [facility] Blood Pressure-Systolic Sjgti=710 Un its=mmHg 07/09/2023 8310-5 [facility]INC Body Temperature Value=98.2 Units=?? F 07/09/2023 8867-4 [facility] Heart rate Value=63.0 Units=/min 94128-3 [facility] O2 % BldC Oximetry Value=96.0 Units= % 07/09/2023 34577-5 [facility] Pain Level Value=1.0 07/09/2023 42616-2 [facility] Weight Iiyol=708.2 Units=Lbs 01/2024 8302-2 [facility]INC Height Value=60.0 Units=Inches 06/24/2023
--- OUTSIDE RECORDS SUMMARY | 2024-07-19 12:20 | XMS_ITS | Encounter Summary ---
Author Organization [employer] Address [address] [facility] [address] [place] [address] Care Team Providers Care Fire Extinguisher Tester Name Role Phone Name, Ish SPEARS Primary Care Provider [phone] Barb Benoit PharmD Unavailable [phone] Encounter Details Date Type Department Care Team (Late st Contact Info) Description 04/13/2022 Orders Only [facility] CH[facility] MED & PEDS [address] [place], [place] [phone] Laura Tim LPN Social History Tobacco Use [...] Description 07/28/2024 9:45 AM EDT Office Visit [facility] OPTOMETRY [address] [place] [address] TarkaGifty, OD [address] [place] [address] documented as of this encounter Visit Diagnoses Not on filedocumented in this encounter Care Teams Fire Extinguisher Tester Relationship Specialty Start Date End Date Name, MD Ish [address] [place] [address] PCP - General Family Medicine 12/02/20 Barb Benoit, PharmD [address] [place] [address] Pharmacist Internal Medicine 09/09/21 documented as of this encounter
--- OUTSIDE RECORDS SUMMARY | 2024-07-19 12:20 | XMS_ITS | Encounter Summary ---
Author Organization [employer] Address [address] [facility] [address] [place] [address] Care Team Providers Care Helper Maintenance Cleaning Name Role Phone Name, Ish SPEARS Primary Care Provider [phone] Barb Benoit PharmD Unavailable [phone] Encounter Details Date Type Department Care Team ([facility] Contact Info) Description 09/08/2022 Abstract [facility] ADULT DENTAL [address] [place] [address] Sumit Prieto, ALEC [address] [place] [address] Social History Tobacco Use Types Packs/Day Years [...] Upcoming Encounters Date Type Department Care Team ([facility] Contact Info) Description 07/28/2024 9:45 AM EDT Office Visit [facility] OPTOMETRY [address] [place] [address] Gifty Fagan, OD [address] [place] [address] documented as of this encounter Goals Goal Patient Goal Type Associated Problems Recent Progress Patient-Stated? Author Record your blood pressure periodically Blood Pressure No Barb Benoit, PharmD Blood Pressure < 140/90 Blood Pressure 128/76(2024 8:58 AM EST) No Barb Benoit, PharmD documented as of this encounter Visit Diagnoses Not on filedocumented in this encounter Care Teams Helper Maintenance Cleaning Relationship Specialty Start Date End Date Name, MD Ish [address] [place] [address] PCP - General Family Medicine 12/02/20 Barb Benoit, PharmD [address] [place] [address] Pharmacist Internal Medicine 09/09/21 documented as of this encounter
--- OUTSIDE RECORDS SUMMARY | 2024-07-19 12:20 | XMS_ITS | Encounter Summary ---
Author Organization [employer] Address [address] [facility] [address] [place] [address] Care Team Providers Care Card Cutter Helper Name Role Phone Name, Ish SPEARS Primary Care Provider [phone] Barb Benoit PharmD Unavailable [phone] Encounter Details Date Type Department Care Team (Late st Contact Info) Description 06/09/2023 Telephone [facility] [address] [place], [place] [phone] Name, MD Ish [address] [place] [address] Social History Tobacco Use Types Packs/Day Years [...] 2:15 PM EDT Tc from [place] with [facility] ortho requesting for Pre op office note from 06/04/23 , EKG and labs to be faxed over to [phone]. documented in this encounter Plan of Treatment Upcoming Encounters Date Type Department Care Team (Late st Contact Info) Description 07/28/2024 9:45 AM EDT Office Visit [facility] OPT[facility] [address] [place] [address] TarGifty levine, OD [address] [place] [address] documented as of this encounter Goals Goal [...] documented as of this encounter Care Teams Card Cutter Helper Relationship Specialty Start Date End Date Name, MD Ish [address] [place] [address] PCP - General Family Medicine 12/02/20 Barb Benoit, PharmD [address] [place] [phone] Pharmacist Internal Medicine 09/09/21 documented as of this encounter
== END 2024-07-18 10:56 | disposition home or self-care (01) ==
LOC: HO.HOSX 10:55
PROVIDERS: Visit Provider Orthopaedic Surgery
DX: M25.551 Pain in right hip (principal)
CPT/HCPCS: 73502; 99212

== ENCOUNTER 2025-03-02 15:17 | Outpatient (REF) | payer OTHER, SELFPAY ==
--- OUTSIDE RECORDS SUMMARY | 2025-03-02 14:00 | XMS_ITS | Encounter Summary ---
Author Organization [employer] Address [address] [place] [address] [address] [place] [address] Care Team Providers Care Underwear Cutter Name Role Phone Name, Ish SPEARS Primary Care Provider [phone] Barb Benoit PharmD Unavailable [phone] Reason for Referral * Consultation (STAT) - Pending Review Specialty Diagnoses / Procedures Referred By Dena fletcher Referred To Contact Cardiology Diagnoses Hypertension, unspecified type EKG, abnormal Maggie Aviles NP [address] [place] [address] Phone: tel: fax: Referral ID Status Reason Start Date Expiration Date Visits Requested Visits Authorized [id number] Pending Review Specialty Services Required 03/02/2026 1 1 Reason for Visit * Reason Comments Pre-op Exam Encounter Details Date Type Department Care Team (Late st Contact Info) Description 03/02/2025 2:00 PM EST Office Visit [facility] [address] [place], [place] [id number] Maggie Aviles NP [address], [place] [phone] Preop examination (Primary Dx); Hypertension, unspecified type; Hypothyroidism, unspecified type; EKG, abnormal Social History Tobacco Use Types Packs/Day Years [...] Answer Date Recorded Patient Health Questionnaire-9 Score 6 03/02/2025 Patient Health Questionnaire-9 Score 6 03/02/2025 Last PHQ-9: Questionnaire Data Not on file 1 05/03/2024 Housing Stability Answer Date Recorded What is your housing situation today? I have emiliano munoz 03/02/[address] you li ve. Do you have problems with any of the following? None of the above 03/02/2025 Food Insecurity Answer Date Recorded Within the past 12 months, y ou worried that your food would run out before you got money to buy more: Never True 03/02/2025 Within the past 12 months,th e food you bought just didn't last and you didn't have enough money to get more: Never True Transportation Answer Date Recorded In the past 12 months, has l ack of transportation kept you from medical appts, meetings, work or from getting things needed for daily living? No 03/02/2025 Utilities Answer Date Recorded In the past 12 months, has t he electric, gas, oil or water company threatened to shut off services in your home? No 03/02/2025 Depression Answer Date Recorded Patient Health Questionnaire-2 Score 0 03/02/2025 Internet Access Answer Date Recorded Internet Access Q1 Yes 03/02/2025 Internet Access Q2 Not on file 03/02/2025 Comments No Sex and Gender Information Value Date Recorded Sex Assigned at Female 01/12/2022 10:38 AM EDT Legal Sex Female 10:38 AM EDT Gender Identity Female 01/12/2022 10:38 AM EDT Sexual Orientation Straight 01/12/2022 10 :38 AM EDT documented as of this encounter Last Filed Vital Signs Vital Sign Reading Time Taken Comments Blood Pressure 170/100 03/02/2025 2:22 PM EST Pulse 85 03/02/2025 2:22 PM EST Temperature 36.7 C (98.1 F) 03/02/2025 2:22 PM EST Respiratory Rate 16 03/02/2025 2:22 PM EST Oxygen Saturation 96% 03/02/2025 2:22 PM EST Inhaled Oxygen Concentration - - Weight 66.7 kg (147 lb) 03/02/2025 2:22 PM EST Height - - Body Mass Index 29.69 02/25/2024 3:03 PM EST documented in this encounter Functional Status * Over the past 2 weeks, how often have you been bothered by any of the following problems? Question Answer Date of Assessment Author Patient Health Questionnaire-2 Score 0 02/12 2:23 PM EST Sandra Singer MA * Little interest or pleasure in doing things Answer Date of Assessment Author Not at all 03/02/2025 2:23 PM EST Sandra Singer MA * Feeling down, depressed, or hopeless Answer Date of Assessment Author Not at all 03/02/2025 2:23 PM EST Sandra Singer MA * Trouble falling or staying asleep, or sleeping too much Answer Date of Assessment Author Not at all 03/02/2025 2:23 PM EST Sandra Singer MA * Feeling tired or having little energy Answer Date of Assessment Author Nearly every day 03/02/2025 2:23 PM EST Sandra Singer MA * Poor appetite or overeating Answer Date of Assessment Author Not at all 03/02/2025 2:23 PM EST Sandra Singer MA * Feeling bad about yourself - or that you are a failure or have let yourself or your family down Answer Date of Assessment Author Not at all 03/02/2025 2:23 PM EST Sandra Singer MA * Trouble concentrating on things, such as reading the newspaper or watching television Answer Date of Assessment Author Not at all 03/02/2025 2:23 PM EST Sandra Singer MA * Moving or speaking so slowly that other people could have noticed? Or the opposite - being so fidgety or restless that you have been moving around a lot more than usual. Answer Date of Assessment Author Nearly every day 03/02/2025 2:23 PM EST Sandra Singer MA * Thoughts that you would be better off or hurting yourself in some way Answer Date of Assessment Author Not at all 03/02/2025 2:23 PM EST Sandra Singer MA * Patient Health Questionnaire-9 Score Answer Date of Assessment Author 6 03/02/2025 2:23 PM Sandra Reynolds MA * Over the last 2 weeks, how often have you been bothered by any of the following problems? Question Answer Date of Assessment Author Feeling nervous, anxious, or on edge 0 02/12 2:23 PM Sandra Reynolds MA Not being able to stop or co ntrol worrying 0 03/02/2025 2:23 PM Sandra Reynolds M A Worrying too much about diff erent things 0 03/02/2025 2:23 PM Sandra Reynolds M A Trouble relaxing 0 03/02/2025 2:23 PM Sandra Maldonado MA Being so restless that it is hard to sit still 0 03/02/2025 2:23 PM Sandra Reynolds M A Becoming easily annoyed or irritable 0 02/12 2:23 PM Sandra Reynolds MA Feeling afraid as if somethi ng awful might happen 0 03/02/2025 2:23 PM Sandra Reynolds M A TK-7 Total Score 0 03/02/2025 2:23 PM Sandra Reynolds MA documented as of this encounter Progress Notes * Maggie Aviles NP - 03/02/2025 2:00 PM EST .Ya Olmos is a 79 y.o. @GENDER@ who presents to the office for a preoperative evaluation. Date of Surgery: 03/19 Surgical procedure being done: upper eyelid surgery Type of anesthesia: MAC Lab needed: Yes EKG: Yes Surgeon's name: Dr. Mcknight Facility name: [facility] Surgeon's office number: [phone] Surgeon's office fax number: [phone] Contact name (person you spoke with):Aline Last office note from surgeon requested: No Denies personal or family history of bleeding diathesis or life-threatening anesthetic reactions Denies kidney disease, thyroid disease, liver disease, asthma, or diabetes. Denies history of stroke. Denies problems with pain, stiffness, or arthritis in neck or jaw. Denies history of sleep apnea, loud snoring, or waking from sleep choking or gasping. Denies allergy to tape, iodine, or latex Able to walk up a flight of stairs or run across a street without needing to stop to catch breath No known cardiac history, denies history of irregular heartbeat , does have hypertension No history of alcohol withdrawal; not a regular, heavy drinker. Ya Olmos, 79-year-old female - Preparing for upcoming surgery, preoperative evaluation - No lightheadedness or dizziness reported prior to visit - No chest pain or pressure reported prior to visit - No history of stroke, bleeding or clotting disorder, sleep apnea, asthma, or diabetes reported prior to visit - History of hip surgery (hip replacement), no antibiotics required for future procedures - Previous blood pressure readings noted as normal (134/76) - No recent changes in health, no new medications taken prior to visit - No recent chest discomfort or fatigue reported prior to visit Chronic Medical Conditions: Problem List[1] Allergies: Allergies[2] Review of Systems Constitutional: Negative for activity change and appetite change. Respiratory: Negative for apnea and chest tightness. Cardiovascular: Negative for chest pain and leg swelling. Gastrointestinal: Negative for abdominal distention and abdominal pain. Genitourinary: Negative for difficulty urinating and dyspareunia. Musculoskeletal: Negative for arthralgias. Hematological: Negative for adenopathy. OBJECTIVE Visit Vitals BP (!) 170/100 (BP Location: Left arm, Patient Position: Sitting, BP Cuff Size: Adult) Pulse 85 Temp 98.1 ??F (36.7 ??C) (Oral) Resp 16 Wt 147 lb (66.7 kg) SpO2 96% BMI 29.69 kg/m?? OB Status Postmenopausal Smoking Status Never BSA 1.67 m?? Physical Exam Vitals reviewed. Constitutional: Appearance: She is obese. HENT: Head: Normocephalic and atraumatic. Nose: Nose normal. Eyes: Conjunctiva/sclera: Conjunctivae normal. Cardiovascular: Rate and Rhythm: Normal rate and regular rhythm. Pulmonary: Effort: Pulmonary effort is normal. Breath sounds: Normal breath sounds. Musculoskeletal: Cervical back: Normal range of motion and neck supple. Neurological: General: No focal deficit present. Mental Status: She is alert. PREOPERATIVE ASSESSMENT AND PLAN: -H&P completed -Medication list reviewed with patient and up to date. -The incidence of perioperative cardiovascular events varies according to the patient risk profile,patient's functional capacity, and risk of the proposed surgery. Active cardiac conditions that are contraindications to elective surgery: Surgery-Specific Cardiac Risk: low Cardiac risk by patient profile (RCRI): Patient has 1 risk factors corresponding to 1.0%risk of a major cardiac event during surgery. Functional capacity = 5 METS. The patient reports being able to walk up 1 one flight of stairs and 2 blocks without stopping. This patient is at average risk for an low risk procedure. The patient is at acceptable risk for the proposed procedure. Reviewed with patient that no surgery is completely free of risk and this evaluation is to assist surgeon in accurately reviewing informed consent. Problem List Items Addressed This Visit Hypertensive disorder Relevant Medications losartan (Cozaar) 100 MG tablet amLODIPine (Norvasc) 10 MG tablet cloNIDine (Catapres) 0.2 MG tablet hydroCHLOROthiazide (HYDRODiuril) 25 MG tablet Other Relevant Orders Referral to Cardiology CBC auto differential Comprehensive Metabolic Panel TSH W/Reflex to FT4 Hypothyroidism Relevant Medications losartan (Cozaar) 100 MG tablet amLODIPine (Norvasc) 10 MG tablet cloNIDine (Catapres) 0.2 MG tablet hydroCHLOROthiazide (HYDRODiuril) 25 MG tablet Other Relevant Orders TSH W/Reflex to FT4 Preop examination - Primary Relevant Orders ECG 12 lead (Completed) Other Visit Diagnoses EKG, abnormal Relevant Medications amLODIPine (Norvasc) 10 MG tablet Other Relevant Orders Referral to Cardiology Assessment & Plan Preop examination: - Preoperative evaluation performed. Clearance for surgery pending improvement in blood pressure and cardiology evaluation. - Schedule follow-up nurse visit and repeat blood pressure check early next week. Order labs and EKG per surgical office requirements. Will call surgery office to update on current status and hold clearance until blood pressure improves and cardiology review is completed. Hypertension, unspecified type: - Elevated blood pressure noted today (160/100 mmHg), previously well-controlled. - Renewed antihypertensive medications. Repeat blood pressure check early next week. Clearance for surgery contingent on improved blood pressure. EKG, abnormal: - EKG showed sinus rhythm, right bundle branch block, and AV conduction dysfunction. Findings may be artifact but require further evaluation. - Referred to patient care manager for evaluation of EKG findings prior to surgical clearance. Appointments - Cardiology consultation to evaluate EKG findings - Blood pressure check early next week at [place] - Nurse follow-up visit next week for blood pressure recheck Based on our discussion, I have outlined the following instructions for you: - Schedule a nurse visit early next week to check your blood pressure again. - Get the necessary lab tests and an EKG done as required by the surgical office. - Wait for a call from the surgery office about your current status. They will hold off on giving you clearance for surgery until your blood pressure improves and the cardiology review is completed. - Visit a patient care manager to evaluate your EKG results before getting clearance for surgery. Next appointment(s): - Cardiology consultation to evaluate EKG findings - Blood pressure check early next week at [place] - Nurse follow-up visit next week for blood pressure recheck Medications Ordered Prior to Encounter[3] This note was drafted using Ambient (AI) technology. The patient/patient's guardian has been informed and has consented to the use of this technology: Yes Visit Conducted in: Hebrew Translation by: Provided by [facility] staff member sandra KEENAN , [1] Patient Active Problem List Diagnosis COVID-19 Hypertensive disorder Hypothyroidism Perforation of tympanic membrane Chronic low back pain High cholesterol Osteopenia Aftercare following joint replacement surgery Gastro-esophageal reflux disease without esophagitis Muscle wasting and atrophy, not elsewhere classified, multiple sites Osteoarthritis of hip, unspecified History of right hip replacement Unspecified osteoarthritis, unspecified site Unspecified abnormalities of gait and mobility Unspecified lack of coordination Unspecified protein-calorie malnutrition (CMS/HCC) Other low back pain Hyperlipidemia, unspecified Essential (primary) hypertension Hypothyroidism, unspecified Well adult health check UTI (urinary tract infection), bacterial Preop examination [2] No Known Allergies [3] Current Outpatient Medications on File Prior to Visit Medication Sig Dispense Refill acetaminophen (Tylenol) 500 MG tablet Take 1 tablet (500 mg) by mouth every 6 (six) hours if neededfor mild pain for up to 30 doses. 30 tablet 0 amoxicillin (Amoxil) 500 MG capsule (Patient not taking: Reported on 03/23/2024) Calcium Carb-Cholecalciferol 600-10 MG-MCG tablet TAKE ONE TABLET TWICE DAILY IN THE MORNING AND ATBEDTIME 60 tablet 2 celecoxib (CeleBREX) 200 MG capsule Diclofenac Sodium 1 % gel Apply twice a day to left knee 150 g 3 gabapentin (Neurontin) 100 MG capsule hydrocortisone 1 % ointment Apply topically 2 times daily. 28 g 1 levothyroxine (Synthroid, Levoxyl) 75 MCG tablet TAKE ONE TABLET EVERY MORNING 30 tablet 2 methocarbamol (Robaxin) 500 MG tablet omeprazole (PriLOSEC) [address] capsule TAKE ONE CAPSULE EVERY MORNING 30 TO 60 MINUTES BEFORE BREAKFAST 30 capsule 0 rosuvastatin (Crestor) 10 MG tablet TAKE ONE TABLET EVERY NIGHT AT BEDTIME 90 tablet 3 [DISCONTINUED] amLODIPine (Norvasc) 10 MG tablet TAKE ONE TABLET EVERY MORNING 90 tablet 1 [DISCONTINUED] cloNIDine (Catapres) 0.2 MG tablet TAKE ONE TABLET EVERY NIGHT AT BEDTIME 90 tablet 1 [DISCONTINUED] hydroCHLOROthiazide (HYDRODiuril) 25 MG tablet TAKE ONE TABLET EVERY MORNING 30 tablet 11 [DISCONTINUED] losartan (Cozaar) 100 MG tablet TAKE ONE TABLET EVERY NIGHT AT BEDTIME 90 tablet 1 [DISCONTINUED] omeprazole (PriLOSEC) [address] capsule TAKE ONE CAPSULE EVERY MORNING 30 TO 60 MINUTES BEFORE BREAKFAST 30 capsule 0 No current facility-administered medications on file prior to visit. * Maggie Aviles NP - 03/02/2025 2:00 PM EST .Ya Tovargas is a 79 y.o. @GENDER@ who presents to the office for a preoperative evaluation. Date of Surgery: 03/19 Surgical procedure being done: upper eyelid surgery Type of anesthesia: MAC Lab needed: Yes EKG: Yes Surgeon's name: Dr. Mcknight Facility name: [facility] Surgeon's office number: [phone] Surgeon's office fax number: [phone] Contact name (person you spoke with):Aline Last office note from surgeon requested: No Denies personal or family history of bleeding diathesis or life-threatening anesthetic reactions Denies kidney disease, thyroid disease, liver disease, asthma, or diabetes. Denies history of stroke. Denies problems with pain, stiffness, or arthritis in neck or jaw. Denies history of sleep apnea, loud snoring, or waking from sleep choking or gasping. Denies allergy to tape, iodine, or latex Able to walk up a flight of stairs or run across a street without needing to stop to catch breath No known cardiac history, denies history of irregular heartbeat , does have hypertension No history of alcohol withdrawal; not a regular, heavy drinker. Ya Olmos, 79-year-old female - Preparing for upcoming surgery, preoperative evaluation - No lightheadedness or dizziness reported prior to visit - No chest pain or pressure reported prior to visit - No history of stroke, bleeding or clotting disorder, sleep apnea, asthma, or diabetes reported prior to visit - History of hip surgery (hip replacement), no antibiotics required for future procedures - Previous blood pressure readings noted as normal (134/76) - No recent changes in health, no new medications taken prior to visit - No recent chest discomfort or fatigue reported prior to visit Chronic Medical Conditions: Problem List[1] Allergies: Allergies[2] Review of Systems Constitutional: Negative for activity change and appetite change. Respiratory: Negative for apnea and chest tightness. Cardiovascular: Negative for chest pain and leg swelling. Gastrointestinal: Negative for abdominal distention and abdominal pain. Genitourinary: Negative for difficulty urinating and dyspareunia. Musculoskeletal: Negative for arthralgias. Hematological: Negative for adenopathy. OBJECTIVE Visit Vitals BP (!) 170/100 (BP Location: Left arm, Patient Position: Sitting, BP Cuff Size: Adult) Pulse 85 Temp 98.1 ??F (36.7 ??C) (Oral) Resp 16 Wt 147 lb (66.7 kg) SpO2 96% BMI 29.69 kg/m?? OB Status Postmenopausal Smoking Status Never BSA 1.67 m?? Physical Exam Vitals reviewed. Constitutional: Appearance: She is obese. HENT: Head: Normocephalic and atraumatic. Nose: Nose normal. Eyes: Conjunctiva/sclera: Conjunctivae normal. Cardiovascular: Rate and Rhythm: Normal rate and regular rhythm. Pulmonary: Effort: Pulmonary effort is normal. Breath sounds: Normal breath sounds. Musculoskeletal: Cervical back: Normal range of motion and neck supple. Neurological: General: No focal deficit present. Mental Status: She is alert. PREOPERATIVE ASSESSMENT AND PLAN: -H&P completed -Medication list reviewed with patient and up to date. -The incidence of perioperative cardiovascular events varies according to the patient risk profile,patient's functional capacity, and risk of the proposed surgery. Active cardiac conditions that are contraindications to elective surgery: Surgery-Specific Cardiac Risk: low Cardiac risk by patient profile (RCRI): Patient has 1 risk factors corresponding to 1.0%risk of a major cardiac event during surgery. Functional capacity = 5 METS. The patient reports being able to walk up 1 one flight of stairs and 2 blocks without stopping. This patient is at average risk for an low risk procedure. The patient is at acceptable risk for the proposed procedure. Reviewed with patient that no surgery is completely free of risk and this evaluation is to assist surgeon in accurately reviewing informed consent. Pending normotensive reading and cardiology EKG interpretation or visit she can proceed with planned procedure as scheduled. Problem List Items Addressed This Visit Hypertensive disorder Relevant Medications losartan (Cozaar) 100 MG tablet amLODIPine (Norvasc) 10 MG tablet cloNIDine (Catapres) 0.2 MG tablet hydroCHLOROthiazide (HYDRODiuril) 25 MG tablet Other Relevant Orders Referral to Cardiology CBC auto differential Comprehensive Metabolic Panel TSH W/Reflex to FT4 Hypothyroidism Relevant Medications losartan (Cozaar) 100 MG tablet amLODIPine (Norvasc) 10 MG tablet cloNIDine (Catapres) 0.2 MG tablet hydroCHLOROthiazide (HYDRODiuril) 25 MG tablet Other Relevant Orders TSH W/Reflex to FT4 Preop examination - Primary Relevant Orders ECG 12 lead (Completed) Other Visit Diagnoses EKG, abnormal Relevant Medications amLODIPine (Norvasc) 10 MG tablet Other Relevant Orders Referral to Cardiology Assessment & Plan Preop examination: - Preoperative evaluation performed. Clearance for surgery pending improvement in blood pressure and cardiology evaluation. - Schedule follow-up nurse visit and repeat blood pressure check early next week. Order labs and EKG per surgical office requirements. Will call surgery office to update on current status and hold clearance until blood pressure improves and cardiology review is completed. Hypertension, unspecified type: - Elevated blood pressure noted today (160/100 mmHg), previously well-controlled. - Renewed antihypertensive medications. Repeat blood pressure check early next week. Clearance for surgery contingent on improved blood pressure. EKG, abnormal: - EKG showed sinus rhythm, right bundle branch block, and AV conduction dysfunction. Findings may be artifact but require further evaluation. - Referred to patient care manager for evaluation of EKG findings prior to surgical clearance. Appointments - Cardiology consultation to evaluate EKG findings - Blood pressure check early next week at [place] - Nurse follow-up visit next week for blood pressure recheck Based on our discussion, I have outlined the following instructions for you: - Schedule a nurse visit early next week to check your blood pressure again. - Get the necessary lab tests and an EKG done as required by the surgical office. - Wait for a call from the surgery office about your current status. They will hold off on giving you clearance for surgery until your blood pressure improves and the cardiology review is completed. - Visit a patient care manager to evaluate your EKG results before getting clearance for surgery. Next appointment(s): - Cardiology consultation to evaluate EKG findings - Blood pressure check early next week at [place] - Nurse follow-up visit next week for blood pressure recheck Medications Ordered Prior to Encounter[3] This note was drafted using Ambient (AI) technology. The patient/patient's guardian has been informed and has consented to the use of this technology: Yes Visit Conducted in: Hebrew Translation by: Provided by [facility] staff member sandra KEENAN , [1] Patient Active Problem List Diagnosis COVID-19 Hypertensive disorder Hypothyroidism Perforation of tympanic membrane Chronic low back pain High cholesterol Osteopenia Aftercare following joint replacement surgery Gastro-esophageal reflux disease without esophagitis Muscle wasting and atrophy, not elsewhere classified, multiple sites Osteoarthritis of hip, unspecified History of right hip replacement Unspecified osteoarthritis, unspecified site Unspecified abnormalities of gait and mobility Unspecified lack of coordination Unspecified protein-calorie malnutrition (CMS/HCC) Other low back pain Hyperlipidemia, unspecified Essential (primary) hypertension Hypothyroidism, unspecified Well adult health check UTI (urinary tract infection), bacterial Preop examination [2] No Known Allergies [3] Current Outpatient Medications on File Prior to Visit Medication Sig Dispense Refill acetaminophen (Tylenol) 500 MG tablet Take 1 tablet (500 mg) by mouth every 6 (six) hours if neededfor mild pain for up to 30 doses. 30 tablet 0 amoxicillin (Amoxil) 500 MG capsule (Patient not taking: Reported on 03/23/2024) Calcium Carb-Cholecalciferol 600-10 MG-MCG tablet TAKE ONE TABLET TWICE DAILY IN THE MORNING AND ATBEDTIME 60 tablet 2 celecoxib (CeleBREX) 200 MG capsule Diclofenac Sodium 1 % gel Apply twice a day to left knee 150 g 3 gabapentin (Neurontin) 100 MG capsule hydrocortisone 1 % ointment Apply topically 2 times daily. 28 g 1 levothyroxine (Synthroid, Levoxyl) 75 MCG tablet TAKE ONE TABLET EVERY MORNING 30 tablet 2 methocarbamol (Robaxin) 500 MG tablet omeprazole (PriLOSEC) [address] capsule TAKE ONE CAPSULE EVERY MORNING 30 TO 60 MINUTES BEFORE BREAKFAST 30 capsule 0 rosuvastatin (Crestor) 10 MG tablet TAKE ONE TABLET EVERY NIGHT AT BEDTIME 90 tablet 3 [DISCONTINUED] amLODIPine (Norvasc) 10 MG tablet TAKE ONE TABLET EVERY MORNING 90 tablet 1 [DISCONTINUED] cloNIDine (Catapres) 0.2 MG tablet TAKE ONE TABLET EVERY NIGHT AT BEDTIME 90 tablet 1 [DISCONTINUED] hydroCHLOROthiazide (HYDRODiuril) 25 MG tablet TAKE ONE TABLET EVERY MORNING 30 tablet 11 [DISCONTINUED] losartan (Cozaar) 100 MG tablet TAKE ONE TABLET EVERY NIGHT AT BEDTIME 90 tablet 1 [DISCONTINUED] omeprazole (PriLOSEC) [address] capsule TAKE ONE CAPSULE EVERY MORNING 30 TO 60 MINUTES BEFORE BREAKFAST 30 capsule 0 No current facility-administered medications on file prior to visit. documented in this encounter Plan of Treatment Upcoming Encounters Date Type Department Care Team (Late st Contact Info) Description 03/07/2025 9:30 AM EST Clinical Support [address] [address] Scheduled Orders Name Type Priority Associated Diagnoses Orde r Schedule CBC auto differential Lab Routine Hypertension, unspecified type Expected: 03/02/2025 (Approximate), Expires: 03/02/2026 Comprehensive Metabolic Panel Lab Routine Hypertension, unspecified type Expected: 03/02/2025 (Approximate), Expires: 03/02/2026 TSH W/Reflex to FT4 Lab Routine Hypertension, unspecified type Hypothyroidism, unspecified type Expected: 03/02/2025 (Approximate), Expires: 03/02/2026 Scheduled Referrals Name Type Priority Associated Diagnoses Orde r Schedule Referral to Cardiology Outpatient Referral STAT Hypertension, unspecified type EKG, abnormal Expected: 03/02/2025 (Approximate), Expires: 03/02/2026 documented as of this encounter Goals Goal Patient Goal Type Associated Problems Recent Progress Patient-Stated? Author Record your blood pressure periodically Blood Pressure No Barb Benoit PharmD Blood Pressure < 140/90 Blood Pressure 170/100(03/02 2:22 PM EST) No Barb Benoit PharmD documented as of this encounter Procedures Procedure Name Priority Date/Time Associated Diagnosis Comments ECG 12-LEAD Routine 03/02/2025 2:11 PM EST Preop examination documented in this encounter Results * ECG 12 lead (03/02/2025 2:11 PM EST) us Maggie Aviles ADOPTION WORKER ECG ORDERABLES Final Result documented in this encounter Visit Diagnoses Diagnosis Preop examination- Primary Unspecified pre-operative examination Hypertension, unspecified type Hypothyroidism, unspecified type EKG, abnormal documented in this encounter Additional Health Concerns Assessment Noted Time PHQ-9 Depression Total Score: 6 03/02/20 25 2:23 PM EST documented as of this encounter Care Teams Underwear Cutter Relationship Specialty Start Date End Date Name, MD Ish [address] [place] [address] PCP - General Family Medicine 12/02/20 Barb Benoit PharmD [address] [place] [address] Pharmacist Internal Medicine 09/09/21 documented as of this encounter
--- OUTSIDE RECORDS SUMMARY | 2025-03-02 16:27 | XMS_ITS | Encounter Summary ---
Author Organization [employer] Address 75 [facility] [address] [place] [address] Care Team Providers Care Saddle Stitching Machine Operator Name Role Phone Name, Ish SPEARS Primary Care Provider [phone] Barb Benoit PharmD Unavailable [phone] Reason for Visit * Reason Onset Date Comments Chart Prep 03/01/2025 Encounter Details Date Type Department Care Team ([facility] st Contact Info) Description 03/01/2025 Telephone [facility] [address] [place], [place] [phone] Jessica Singh NP [address] [place], [place] [phone] Chart Prep Social History Tobacco Use Types Packs/Day Years Used Date Smoking Tobacco: Never Smokeless Tobacco: Never Alcohol Use Standard Drinks/Week Comments Never 0 (1 standard drink = 0.6 oz pur e alcohol) Alcohol Answer Date Recorded Frequency of Alcohol Consumption Not on file 09/15/2023 Average Number of Drinks Not on file 024 Frequency of Binge Drinking Not on file 05/2023 Score 0 09/15/2023 Depression Answer Date [...] encounter Miscellaneous Notes * Telephone Encounter - Maria G Garduno [place] - 03/01/2025 10:46 AM EST Chart Prep Labs: not applicable Images: not applicable Referrals: not applicable Vaccines due: Covid, Flu, RSV, and Zoster Screenings: not applicable Overdue care gaps: SBIRT, SDOH, PHQ-9, TK-7, Oral health screening, and Tobacco documented in this encounter Plan of Treatment Upcoming Encounters Date Type Department Care Team (Late st Contact Info) Description 03/07/2025 9:30 AM EST Clinical Support [facility] [address] [place] [address] documented as of this encounter Goals Goal Patient Goal Type Associated Problems Recent Progress Patient-Stated? Author Record your blood pressure periodically Blood Pressure No Puia, Barb, PharmD Blood Pressure < 140/90 Blood Pressure 170/100(03/02 2:22 PM EST) No Puia, Barb, PharmD documented as of this encounter Visit Diagnoses Not on filedocumented in this encounter Additional Health Concerns Assessment Noted Time PHQ-9 Depression Total Score: 3 05/28/19 24 9:35 AM EDT documented as of this encounter Care Teams Saddle Stitching Machine Operator Relationship Specialty Start Date End Date Name, MD Ish [address] [place] [address] PCP - General Family Medicine 12/02/20 Barb Benoit PharmD [address] [place] [address] Pharmacist Internal Medicine 09/09/21 documented as of this encounter
--- OUTSIDE RECORDS SUMMARY | 2025-03-02 16:27 | XMS_ITS | Clinical Summary ---
Author Organization [employer] Address 75 [facility] 7t [place] [address] Care Team Providers Care Poultry Farm Manager Name Role Phone Name, Ish SPEARS Primary Care Provider [phone] Barb Benoit PharmD Unavailable [phone] Allergies No known active allergies Medications hydrocortisone 1 % ointment Apply topically 2 times daily. 28 g 1 08/05/19 23 Active acetaminophen (Tylenol) 500 MG tabletIndicatio ns:Symptomatic irreversible pulpitis Take 1 tablet (500 mg) by mouth every 6 (six) hours if needed for mild pain for up to 30 doses. 30 tablet 09/08/19 23 Active Diclofenac Sodium 1 % gelIndications: Chronic pain of left knee Apply twice a day to left knee 150 g 3 02/24/20 23 Active amoxicillin (Amoxil) 500 MG capsule 07/08/19 24 Active gabapentin (Neurontin) 100 MG capsule 07/09/19 24 Active methocarbamol (Robaxin) 500 MG tablet 07/09/19 24 Active celecoxib (CeleBREX) 200 MG capsule 07/09/19 24 Active rosuvastatin (Crestor) 10 MG tabletIndicatio ns:High cholesterol TAKE ONE TABLET EVERY NIGHT AT BEDTIME 90 tablet 3 07/07/19 25 Active levothyroxine (Synthroid, Levoxyl) 75 MCG tabletIndicatio ns:Hypothyroidi sm, unspecified type TAKE ONE TABLET EVERY MORNING 30 tablet 2 01/20/20 25 Active Calcium Carb-Cholecalci ferol 600-10 MG-MCG tablet TAKE ONE TABLET TWICE DAILY IN THE MORNING AND AT BEDTIME 60 tablet 2 5 12:20 PM EST 01/20/20 25 Active omeprazole (PriLOSEC) [address] capsule TAKE ONE CAPSULE EVERY MORNING 30 TO 60 MINUTES BEFORE BREAKFAST 30 capsule 03/01/20 25 Active losartan (Cozaar) 100 MG tabletIndicatio ns:Hypertension , unspecified type,Hypothyroi dism, unspecified type Take 1 tablet (100 mg) by mouth at bedtime. at bedtime 90 tablet 1 03/02/20 25 Active amLODIPine (Norvasc) 10 MG tabletIndicatio ns:Hypothyroidi sm, unspecified type Take 1 tablet (10 mg) by mouth in the morning. 90 tablet 1 03/02/20 25 Active cloNIDine (Catapres) 0.2 MG tabletIndicatio ns:Hypertension , unspecified type,Hypothyroi dism, unspecified type Take 1 tablet (0.2 mg) by mouth at bedtime. at bedtime 90 tablet 1 03/02/20 25 Active hydroCHLOROthia zide (HYDRODiuril) 25 MG tabletIndicatio ns:Hypothyroidi sm, unspecified type Take 1 tablet (25 mg) by mouth in the morning. 30 tablet 11 03/02/20 25 Active amLODIPine (Norvasc) 10 MG tablet TAKE ONE TABLET EVERY MORNING 90 tablet 1 08/26/19 25 025 Discontinued cloNIDine (Catapres) 0.2 MG tabletIndicatio ns:Hypertension , unspecified type TAKE ONE TABLET EVERY NIGHT AT BEDTIME 90 tablet 1 12/23/19 25 025 Discontinued(Re order (will not trigger notification to Pharmacy)) losartan (Cozaar) 100 MG tabletIndicatio ns:Hypertension , unspecified type TAKE ONE TABLET EVERY NIGHT AT BEDTIME 90 tablet 1 12/23/19 25 025 Discontinued(Re order (will not trigger notification to Pharmacy)) hydroCHLOROthia zide (HYDRODiuril) 25 MG tablet TAKE ONE TABLET EVERY MORNING 30 tablet 11 5 12:20 PM EST 12/26/19 25 025 Discontinued(Re order (will not trigger notification to Pharmacy)) omeprazole (PriLOSEC) [address] capsule TAKE ONE CAPSULE EVERY MORNING 30 TO 60 MINUTES BEFORE BREAKFAST 30 capsule 5 12:20 PM EST 12/27/19 25 025 Discontinued amLODIPine (Norvasc) 10 MG tablet TAKE ONE TABLET EVERY MORNING 90 tablet 1 02/22/20 25 025 Discontinued(Re order (will not trigger notification to Pharmacy)) Active Problems Problem Noted Date Diagnosed Date Preop examination 03/02/2025 Well adult health check 02/17/2024 Assessment & [...] Encounters Date Type Department Care Team Description 03/02/2025 2:00 PM EST Office Visit [facility] [address] [place] [address] [phone] Maggie Aviles NP Preop examination (Primary Dx); Hypertension, unspecified type; Hypothyroidism, unspecified type; EKG, abnormal 03/02/2025 Travel 03/01/2025 Telephone [facility] [address] [place] [address] Jessica Singh, MAYI Chart Prep 02/28/2025 Refill [facility] [address] [place] [address] Name, MD Ish 02/23/2025 Telephone [facility] [address] [place] [address] Name, MD Ish pre op 02/21/2025 Refill [facility] [address] [place] [address] Maggie Aviles NP 01/19/2025 Refill [facility] [address] [place] [address] Name, MD Ish Hypothyroidism, unspecified type 12/25/2024 Refill [facility] [address] [place] [address] Name, MD Ish 12/23/2024 Refill [facility] [address] [place] [address] Name, MD Ish 12/22/2024 Refill [facility] [address] [place] [address] Name, MD Ish Hypertension, unspecified type from Last 3 Months Immunizations Immunization Administration Dates Next Due Influenza High-dose Quadriva [...] (147 lb) 03/02/2025 2:22 PM EST Height 149.9 cm (4' 11 ) 02/25/2024 3:03 PM EST Body Mass Index 29.69 02/25/2024 3:03 PM EST Plan of Treatment Upcoming Encounters Date Type Department Care Team (Late st Contact Info) Description 03/07/2025 9:30 AM EST Clinical Support [facility] [address] [place] [phone] Health Maintenance Due Date Last Done Comments Zoster Vaccines (1 of 2) 1994 RSV Patients and Patients Aged 60 years or older (1 - 1-dose 75+ series) 10/28/2019 Dental Oral Exam 09/21/2024 03/23/2024, 09/10/2022 Dental Prophylaxis 09/21/2024 03/23/2024 COVID-19 Vaccine ( season) 2024 12/21/2023, 02/23/2023, 04/28/2022, Additional history exists Influenza Vaccine (#1) 2024 , 12/07/2022, 12/07/2022, Additional history exists Dental X-Ray: Bitewings 03/24/2025 03/23/19, 09/10/2022, 09/07/2022 Dental X-Ray: Full Mouth 09/11/2025 09/10/2022 Alcohol/Substance Use Screening 03/02/2026 03/02/2025 Depression Screening 03/02/2026 03/02/2025, 03/02/20 SDOH Screening 03/02/2026 03/02/2025 Tobacco Screening 03/02/2026 03/02/2025 Lipid Panel 03/01/2029 03/01/2024, 06, 05/08/2021, Additional history exists DTaP/Tdap/Td Vaccines (2 - Td or Tdap) 08/22/2031 08/21/2021 Pneumococcal Vaccine: 50+ Years Completed 11/01/2023, 01/28/2021, 01/28/2021 HIB Vaccines Aged Out No longer eligi [...] patient's age to complete this topic Meningococcal B Vaccine Aged Out No l onger eligible based on patient's age to complete [...] 2:22 PM EST) No Barb Benoit PharmD Procedures Procedure Name Priority Date/Time Associated Diagnosis Comments ECG 12-LEAD Routine 03/02/2025 2:11 PM EST Preop examination PROPHYLAXIS - ADULT Routine 03/23/2024 9 :00 [...] AM EST Hypertension, unspecified type Leg edema INTRAORAL - COMPLETE SERIES OF RADIOGRAPHIC IMAGES Routine 09/10/2022 10:30 AM EDT Dental caries from Last 3 Months or Most Recently Relevant to Health Maintenance Results * ECG 12 lead (03/02/2025 2:11 PM EST) us Maggie Aviles NP ECG ORDERABLES Final Result * (ABNORMAL) Lipid Panel, Standard (03/01/2024 9:08 AM EST) Triglycerides 238(H) <150 mg/dL [facility] Comment:Desirable Triglyceri de: less than 150 mg/dLBorderline High Triglyceride 150-199 mg/dLHigh Triglyceride: 200-499 mg/dLVery High Triglyceride: greater than or equal to 5OO mg/dL Cholesterol 247(H) <200 mg/dL [facility] Comment:Desirable Cholestero l: less than 200 mg/dLBorderline High Cholesterol: 200-239 mg/dLHigh Cholesterol: greater than 239 mg/dL LDL Cholesterol Calculated 152(H) <100 mg/dL [facility] Comment:Desirable LDL: less than 100 mg/dLNear Optimal/Above Optimal LDL: 110- 129 mg/dLBorderline High LDL: 130-159 mg/dLHigh LDL: 160-189 mg/dLVery High LDL: greater than or equal to 190 mg/dL HDL Cholesterol 48 >40 mg/dL [facility] Comment:Desirable HDL: great er than 40 mg/dL Note: This HDL assay may give artificially low results in patients with liver disease. Blood Venous blood specimen / Unknown 03/01/2024 9:08 AM EST 03/01/2024 11:52 AM EST us Ish Warren MD LAB BLOOD ORDERABLES Final Resul t [facility] [address] [place], [place] [phone] from Last 3 Months or Most Recently Relevant to Health Maintenance Insurance [facility] OPT[employer] (O D-SNP) [facility] Care Teams Poultry Farm Manager Relationship Specialty Start Date End Date Name, MD Ish [address] [place] [address] PCP - General Family Medicine 12/02/20 Barb Benoit, SoniaD [address] [place], [place] [phone] Pharmacist Internal Medicine 09/09/21
--- OUTSIDE RECORDS SUMMARY | 2025-03-02 16:27 | XMS_ITS | Encounter Summary ---
Author Organization [employer] Address 75 [facility] 7t [place] [address] Care Team Providers Care Hearing Aid Consultant Name Role Phone Name, Ish SPEARS Primary Care Provider Barb Benoit PharmD Unavailable [phone] Reason for Visit * Reason Onset Date Comments Nurse Triage 08/11/2024 Encounter Details Date Type Department Care Team ([facility] st Contact Info) Description 08/11/2024 Telephone [facility] [address] [place], [place] [phone] Name, MD Ish [address] [place] [address] Nurse Triage Social History Tobacco Use Types Packs/Day Years [...] encounter Miscellaneous Notes * Telephone Encounter - Lisa Crane RN - 08/11/2024 1:32 PM EDT No interpreter deaf needed as this scenario writer speaks Irish. Call returned to Ya Olmos to triage below. Reports patient having hx of leg edema. No redness or pain. Per pt swelling with long periodsof sitting or standing. Pt confirms has been given compression stockings in past but they are too un comfortable and does not usually wear them. Pt advised to try and wear them when will be sitting orstanding for long periods of time. Reminded to also elevate legs frequently. To return call if having pain , swelling that does not resolve with elevation or redness. Pt verbalized understanding and agrees. Protocol Used: Leg Swelling and Edema (Adult) Protocol-Based Disposition: See in Office or Video Visit within 2 Weeks Override (Final) Disposition: Discuss with PCP and Callback by Nurse as needed Override Reason: Nurse judgment Video visit offer not recorded Positive Triage Question: * Mild swelling of both ankles and chronic (unchanged) * All higher-acuity triage questions were negative Care Advice Discussed: * Reasons To Call Back - Swelling becomes worse - Swelling becomes red or painful to the touch - Calf pain occurs and becomes constant - You become worse * Telephone Encounter - Stan Snyder - 08/11/2024 1:09 PM EDT Symptom: Leg Swelling - Not From Injury Outcome: Schedule an appointment to be seen within 24 hours Reason: Caller denied all higher acuity questions Abi states she was informed by daughter that this is normal for the pt but wanted to forward information over to let pcp know. Please contact Daughter at [phone] . documented in this encounter Plan of Treatment Upcoming Encounters Date Type Department Care Team (Late st Contact Info) Description 03/07/2025 9:30 AM EST Clinical Support [facility] [address] [place] [address] documented as of this encounter Goals Goal [...] documented as of this encounter Care Teams Hearing Aid Consultant Relationship Specialty Start Date End Date Name, MD Ish [address] [place] [address] PCP - General Family Medicine 12/02/20 Puia, Barb, PharmD [address] [place] [address] Pharmacist Internal Medicine 09/09/21 documented as of this encounter
--- OUTSIDE RECORDS SUMMARY | 2025-03-02 16:27 | XMS_ITS | Encounter Summary ---
Author Organization [employer] Address 75 [facility] 7t [place] [address] Care Team Providers Care E Commerce Merchant Name Role Phone Name, Ish SPEARS Primary Care Provider [phone] Barb Benoit PharmD Unavailable [phone] Reason for Visit * Reason Comments Med Refill Encounter Details Date Type Department Care Team ([facility] st Contact Info) Description 02/28/2025 Refill [facility] [address] [place], [place] [phone] Name, MD Ish [address] [place] [address] Social History Tobacco Use Types Packs/Day Years [...] Description 03/07/2025 9:30 AM EST Clinical Support [facility] [address] [place] [phone] documented as of this encounter Goals Goal [...] documented as of this encounter Care Teams E Commerce Merchant Relationship Specialty Start Date End Date Name, MD Ish [address] [place] [address] PCP - General Family Medicine 12/02/20 Puia, Barb, PharmD [address] [place] [address] Pharmacist Internal Medicine 09/09/21 documented as of this encounter
--- OUTSIDE RECORDS SUMMARY | 2025-03-02 16:27 | XMS_ITS | Encounter Summary ---
Author Organization [employer] Address 75 [facility] [address]t [place] [address] Care Team Providers Care Marketing Specialist Name Role Phone Name, Ish SPEARS Primary Care Provider [phone] Barb Benoit PharmD Unavailable [phone] Encounter Details Date Type Department Care Team (Late st Contact Info) Description 06/09/2023 Telephone [facility] [address] [place], [place] [phone] Name, MD Ish [address] [place] [address] Social History Tobacco Use Types Packs/Day Years [...] Lomeli - 06/09/2023 2:15 PM EDT Tc jerrica Araujo with [facility]o requesting for Pre op office note from 06/04/23 , EKG and labs to be faxed over to [phone]. documented in this encounter Plan of Treatment Upcoming Encounters Date Type Department Care Team (Late st Contact Info) Description 03/07/2025 9:30 AM EST Clinical Support [facility] [address] [place] [address] documented as of this encounter Goals Goal [...] documented as of this encounter Care Teams Marketing Specialist Relationship Specialty Start Date End Date Name, MD Ish [address] [place] [address] PCP - General Family Medicine 12/02/20 Puia, Barb, PharmD [address] [place] [address] Pharmacist Internal Medicine 09/09/21 documented as of this encounter
--- OUTSIDE RECORDS SUMMARY | 2025-03-02 16:27 | XMS_ITS | Encounter Summary ---
Author Organization [employer] Address [address] [facility] 7t [place] [address] Care Team Providers Care Wig Stylist Name Role Phone Name, Ish SPEARS Primary Care Provider [phone] Barb Benoit PharmD Unavailable [phone] Encounter Details Date Type Department Care Team (Late Contact Info) Description 09/08/2022 Abstract [facility] [address] [place] [address] Sumit Prieto DMD [address] [place] [address] Social History Tobacco Use Types Packs/Day Years [...] Encounters Date Type Department Care Team (Late Contact Info) Description 03/07/2025 9:30 AM EST Clinical Support [facility] [address] [place] [address] documented as of this encounter Goals Goal Patient Goal Type Associated Problems Recent Progress Patient-Stated? Author Record your blood pressure periodically Blood Pressure No Barb Benoit PharmD Blood Pressure < 140/90 Blood Pressure 170/100(03/02 2:22 PM EST) No Barb Benoit PharmD documented as of this encounter Visit Diagnoses Not on filedocumented in this encounter Care Teams Wig Stylist Relationship Specialty Start Date End Date Name, MD Ish [address] [place] [address] PCP - General Family Medicine 12/02/20 Barb Benoit PharmD [address] [place] [address] Pharmacist Internal Medicine 09/09/21 documented as of this encounter
--- OUTSIDE RECORDS SUMMARY | 2025-03-02 16:27 | XMS_ITS | Encounter Summary ---
Author Organization [employer] Address 75 [facility] [address]t [place] [address] Care Team Providers Care Phys Asst Name Role Phone Name, Ish SPEARS Primary Care Provider [phone] Barb Benoit PharmD Unavailable [phone] Encounter Details Date Type Department Care Team (Late st Contact Info) Description 04/13/2022 Orders Only [facility] [address] [place] [address] Laura Tim LPN Social History Tobacco Use [...] EST Clinical Support [facility] [address] [place] [address] documented as of this encounter Visit Diagnoses Not on filedocumented in this encounter Care Teams Phys Asst Relationship Specialty Start Date End Date Name, MD Ish [address] [place] [address] PCP - General Family Medicine 12/02/20 Barb Benoit, PharmD [address] [place] [address] Pharmacist Internal Medicine 09/09/21 documented as of this encounter
--- OUTSIDE RECORDS SUMMARY | 2025-03-02 16:27 | XMS_ITS | Encounter Summary ---
Author Organization [employer] Address 75 [facility] 7t [place] [address] Care Team Providers Care Clipper Operator Name Role Phone Name, Ish SPEARS Primary Care Provider [phone] Barb Benoit PharmD Unavailable [phone] Encounter Details Date Type Department Care Team (Latest Contact Info) Description 03/02/2025 Travel Social History Tobacco Use Types Packs/Day Years [...] EST Clinical Support [facility] [address] [place] [address] documented as of this encounter Goals Goal Patient Goal Type Associated Problems Recent Progress Patient-Stated? Author Record your blood pressure periodically Blood Pressure No PuBarb anthony, PharmD Blood Pressure < 140/90 Blood Pressure 170/100(03/02 2:22 PM EST) No PuiaChristopheBarb, PharmD documented as of this encounter Visit Diagnoses Not on filedocumented in this encounter Additional Health Concerns Assessment Noted Time PHQ-9 Depression Total Score: 6 03/02/20 25 2:23 PM EST documented as of this encounter Care Teams Clipper Operator Relationship Specialty Start Date End Date Name, MD Ish [address] [place] [address] PCP - General Family Medicine 12/02/20 PuiaChristopheBarb, PharmD [address] [place] [address] Pharmacist Internal Medicine 09/09/21 documented as of this encounter
--- OUTSIDE RECORDS SUMMARY | 2025-03-02 16:27 | XMS_ITS | Encounter Summary ---
Author Organization [employer] Address [address] [place] [address] Care Team Providers Care Goat Driver Name Role Phone Name, Ish SPEARS Primary Care Provider [phone] Barb Benoit PharmD Unavailable [phone] Reason for Visit * Reason Onset Date Comments Pre Op 08/16/2024 Encounter Details Date Type Department Care Team ([facility] st Contact Info) Description 08/16/2024 Telephone [facility] [address], [place] [id number] Name, MD Ish [address] [place] [address] Pre Op Social History Tobacco Use Types Packs/Day Years [...] encounter Miscellaneous Notes * Telephone Encounter - Lin Morales - 08/17/2024 11:01 AM EDT Outgoing call to Estela at [facility] to notify no available pre op appointment before pt scheduled procedure on 09/01/24. * Telephone Encounter - Stan Snyder - 08/16/2024 10:14 AM EDT Date of Surgery: 09/01/24 Surgical procedure being done: Cataracts Right Eye Type of anesthesia: MAC Lab needed: No EKG: No Surgeon's name: Andrew Rosado Facility name: [facility] Surgeon's office number: [phone] Surgeon's office fax number: [phone] Contact name: Estela documented in this encounter Plan of Treatment Upcoming Encounters Date Type Department Care Team ([facility] st Contact Info) Description 03/07/2025 9:30 AM EST Clinical Support [address] [address] documented as of this encounter Goals Goal [...] documented as of this encounter Care Teams Goat Driver Relationship Specialty Start Date End Date Name, MD Ish [address] [place] [address] PCP - General Family Medicine 12/02/20 Barb Benoit PharmD [address] [place] [address] Pharmacist Internal Medicine 09/09/21 documented as of this encounter
[2025-03-02 16:55] LABS: MANUAL DIFF FLAG NO
[2025-03-02 17:02] LABS: Hematocrit 45.0 % (37.0-47.0); Hemoglobin 15.8 g/dl (12.0-16.0); Imm Gran Abs Auto 0.03 X10*3/uL (0.00-0.03); Imm Gran Pct Auto 0.3 % (0.0-0.4); Lymphocytes Absolute Auto 4.3 X10*3/uL (1.2-4.9); Mean Corpuscular HGB Conc 35.1 g/dl (31.0-35.0); Mean Corpuscular Hemoglobin 30.1 pg (27.0-33.0); Mean Corpuscular Volume 85.7 fL (80.0-98.0); NRBC Abs Auto 0.000 X10*3/uL (0.0-0.012); NRBC Pct Auto 0.0 /100WBC (0.0-0.2); Platelet Count 259 X10*3/uL (160-400); Red Blood Count 5.25 X10*6/uL (4.20-5.50); White Blood Count 9.9 X10*3/uL (4.8-10.8)
[2025-03-02 18:12] LABS: Alanine Aminotransferase 27 U/L (0-31); Albumin Level 4.9 g/dL (3.5-5.0); Alkaline Phosphatase 96 U/L (39-117); Anion Gap 12 (12-20); Aspartate Amino Transferase 29 U/L (5-31); Blood Urea Nitrogen 18 mg/dL (9-16); Calcium 10.8 mg/dL (8.4-10.2); Carbon Dioxide 25 mmol/L (22-29); Chloride 108 mmol/L (96-108); Estimated Glomerular Filt Rate > 60; Potassium 3.2 mmol/L (3.3-5.1); Sodium 142 mmol/L (135-145); Total Protein 7.7 g/dL (6.5-8.0)
[2025-03-02 19:20] LABS: Free T4 (Free Thyroxine) 0.97 ng/dL (0.71-1.85)
== END 2025-03-02 15:18 | disposition home or self-care (01) ==
LOC: HO.HHCL 15:17
PROVIDERS: PCP Internal Medicine Geriatric Medicine; Visit Provider Nurse Practitioner Family
DX: I10 Essential (primary) hypertension (principal); E03.9 Hypothyroidism, unspecified
CPT/HCPCS: 36415; 80053; 84439; 84443; 85025